=== PATIENT | female | born 1975 | race Two or more races ===

== ENCOUNTER 2017-06-06 20:23 | Emergency (ER) | payer SELFPAY ==
[~2017-06-06] VITALS: Ht 167.6 cm; Wt 72.6 kg
[2017-06-06] MEDS ORDERED: diphenhydrAMINE 50 MG/ML VIAL IVP ONE (22:00)
[2017-06-06] MEDS ORDERED: METOCLOPRAMIDE HCL 10 MG/2 ML VIAL. IV ONE (22:00)
[2017-06-06] MEDS ORDERED: KETOROLAC 15 MG/ML VIAL. IV ONE (22:00)
[2017-06-06] MEDS ORDERED: IV NORMAL SALINE 1000ML BAG 1,000 ML IV ONE (22:00)
--- NOTE | 2017-06-06 22:36 | RAD ---
Exam performed: CT scan of the head without contrast. Date of Service: 06/05/2017. Comparison: None available. Clinical History: Headache off and on for 6 months, worse today. Technique: Helical acquisitions are obtained from the foramen magnum to the vertex without intravenous administration of contrast. Findings: The ventricles are midline without evidence of dilatation. Normal forte-white differentiation is maintained. There is no extra axial fluid collection, intraparenchymal hemorrhage or mass lesion. The visualized portions of the orbits, paranasal sinuses and the mastoid air cells appear clear. The calvarium is intact. Impression: 1. No acute intracranial process detected. PQRS Compliance Statement: One or more of the following individualized dose reduction techniques were utilized for this examination: 1. Automated exposure control 2. Adjustment of the mA and/or kV according to patient size 3. Use of iterative reconstruction technique Electronically signed by: Elsa Hou MD (06/06/2017 10:32 PM) [id number]
[2017-06-06 23:30] VITALS: BP 92/50
--- NOTE | 2017-06-06 23:42 | PHYS DOC ---
Past Medical History Past Medical History: Anemia, Anxiety, Depression, Diabetes-Type II Past Surgical History: No Surgical History Alcohol Use: None Drug Use: None Adult General Chief Complaint Chief Complaint: HEADACHE HPI HPI Patient is a 42 year old female who presents here today complaining of a headache that started yesterday in her neck. Patient reports the pain is in the left side of her neck. Patient denies any blurred vision. Patient reports she's been having hot flashes. Patient reports she has a history of anxiety depression and anemia. Patient reports she's had a headache for approximately 6 months now with a headache almost every day for the last 6 months. Patient reports that she was started on prednisone for inflammation of a nerve. Patient has any fevers shakes chills nausea vomiting diarrhea chest pain or shortness of breath. Patient reports that whenever she stops prednisone the pain comes back in. Constitutional: Denies fever or chills [] Eyes: Denies change in visual acuity, redness, or eye pain [] HENT: Denies nasal congestion or sore throat [] All other review systems are negative except as documented in the history of present illness portion. Constitutional: Well developed, well nourished, no acute distress, non-toxic appearance. [] HENT: Normocephalic, atraumatic, bilateral external ears normal, oropharynx moist, no oral exudates, nose normal. [] No signs or symptoms of be consistent with meningitis. Eyes: no discharge. [] Neck: Normal range of motion, no tenderness, supple, no stridor. [] Cardiovascular:Heart rate regular rhythm, Lungs & Thorax: Bilateral breath sounds clear to auscultation [] Abdomen: Bowel sounds normal, soft, no tenderness, no masses, no pulsatile masses. [] Skin: Warm, dry, no erythema, no rash. [] Back: No tenderness, no CVA tenderness. [] Extremities: No tenderness, no cyanosis, no clubbing, ROM intact, no edema. [] Neurologic: Alert and oriented X 3, normal motor function, normal sensory function, no focal deficits noted. [] Psychologic: Affect normal, judgement normal, mood normal. [] This is a 42-year-old female who presents here today with a headache. Patient was given adequate analgesia in the ER was discharged home in stable condition. Current Medications Current Medications Current Medications Medications (Trade) Dose Ordered Sig/Laurel Start Time Stop Time Status Last Admin Dose Admin Diphenhydramine HCl (Benadryl) 50 mg 1X ONCE 06/06/17 22:00 06/06/17 22:01 DC 06/06/17 21:39 50 MG Ketorolac Tromethamine (Toradol) 30 mg 1X ONCE 06/06/17 22:00 06/06/17 22:01 DC 06/06/17 21:39 30 MG Metoclopramide HCl (Reglan) 10 mg 1X ONCE 06/06/17 22:00 06/06/17 22:01 DC 06/06/17 21:38 10 MG Sodium Chloride 1,000 ml @ 1,000 mls/hr 1X ONCE 06/06/17 22:00 06/06/17 22:59 DC 06/06/17 21:39 1,000 MLS/HR Allergies Allergies Allergies Coded Allergies Type Severity Reaction Last Updated Verified No Known Drug Allergies 06/06/17 No Current Patient Data Vital Signs Vital Signs Date Time Temp Pulse Resp B/P (MAP) Pulse Ox O2 Delivery O2 Flow Rate FiO2 06/06/17 23:30 54 18 92/50 (64) 97 Room Air 06/06/17 20:55 98.2 98.2 Lab Values Laboratory Tests Test 06/06/17 20:09 POC Urine HCG, Qualitative Hcg negative (Negative) EKG EKG [] Radiology/Procedures Radiology/Procedures [] Course & Med Decision Making Course & Med Decision Making Pertinent Labs and Imaging studies reviewed. (See chart for details) [] Dragon Disclaimer Dragon Disclaimer This electronic medical record was generated, in whole or in part, using a voice recognition dictation system. Departure Departure Impression: Primary Impression: Headache Disposition: 01 HOME, SELF-CARE Condition: IMPROVED Referrals: LLYA HUBBARD [facility] (PCP) Patient Instructions: General Headache Without Cause CHARLES SPEAR MD Jun 06, 2017 23:41
== END 2017-06-07 00:01 | disposition home or self-care (01) ==
LOC: ER 20:23
DX: R51 Headache (principal); F41.9 Anxiety disorder, unspecified; F32.9 Major depressive disorder, single episode, unspecified; E11.9 Type 2 diabetes mellitus without complications
CPT/HCPCS: 70450; 81025; 96361; 96374; 96375; 99285; J1200; J1885; J2765; J7030

== ENCOUNTER 2017-06-09 13:32 | Emergency (ER) | payer SELFPAY ==
[~2017-06-09] VITALS: Ht 152.4 cm; Wt 75.7 kg
[2017-06-09 14:04] LABS: BASO # 0.1 x10^3/uL (0.0-0.2); BASO % 1 % (0-3); EOS % 2 % (0-3); HEMATOCRIT 37.8 % (36.0-47.0); HEMOGLOBIN 12.3 g/dL (12.0-15.5); LYMPH # 3.5 x10^3/uL (1.0-4.8); LYMPH % 37 % (24-48); MEAN CORPUSCULAR HEMOGLOBIN 25 pg (25-35); MEAN CORPUSCULAR HGB CONC 33 g/dL (31-37); MEAN CORPUSCULAR VOLUME 77 fL (79-100); MONO % 6 % (0-9); NEUT % 54 % (31-73); PLATELET COUNT 360 x10^3/uL (140-400); RED BLOOD COUNT 4.92 x10^6/uL (3.50-5.40); RED CELL DISTRIBUTION WIDTH 22.3 % (11.5-14.5); WHITE BLOOD COUNT 9.5 x10^3/uL (4.0-11.0)
[2017-06-09 14:18] LABS: CREATININE 0.8 mg/dL (0.6-1.0); GFR 78.3; POTASSIUM 3.6 mmol/L (3.5-5.1)
--- NOTE | 2017-06-09 14:24 | PHYS DOC ---
Past Medical History Past Medical History: Anemia, Anxiety, Depression, Diabetes-Type II Past Surgical History: No Surgical History Alcohol Use: None Drug Use: None Adult General Chief Complaint Chief Complaint: CHEST PAIN HPI HPI Patient is a 42 year old female who presents with left-sided chest pain that started this morning and is nonradiating. Patient states that nothing increases or decreases the pain. Patient complains of some seasonal allergies with postnasal drip and a sore throat. Patient has no cardiac history. Patient denies any shortness of breath. Patient denies any fevers or chills. Patient denies any nausea/vomiting/diarrhea. Patient has no other complaints. Review of Systems Review of Systems GEN: Denies fevers, chills, sweats HEENT: Denies blurred vision, sore throat CV: chest pain RESP: Denies shortness of air, cough GI: Denies n/v/d NEURO: Denies confusion, dizziness MSK: Denies weakness, joint pain/swelling Allergies Allergies Allergies Coded Allergies Type Severity Reaction Last Updated Verified No Known Drug Allergies 06/06/17 No Physical Exam Physical Exam GEN.: No apparent distress. Alert and oriented. HEENT: Head is normocephalic, atraumatic NECK: Supple. LUNGS: CTAB. HEART: RRR, S1, S2 present. Peripheral pulses intact ABDOMEN: Soft, nontender. Positive bowel sounds. EXTREMITIES: Without any cyanosis. NEUROLOGIC: Normal speech, normal tone PSYCHIATRIC: Normal affect, normal mood. SKIN: No ulcerations Current Patient Data Vital Signs Vital Signs Date Time Temp Pulse Resp B/P (MAP) Pulse Ox O2 Delivery O2 Flow Rate FiO2 06/09/17 13:39 98.1 60 18 112/56 (74) 100 Room Air 98.1 Lab Values Laboratory Tests Test 06/09/17 13:02 06/09/17 13:50 POC Urine HCG, Qualitative Hcg negative (Negative) White Blood Count 9.5 x10^3/uL (4.0-11.0) Red Blood Count 4.92 x10^6/uL (3.50-5.40) Hemoglobin 12.3 g/dL (12.0-15.5) Hematocrit 37.8 % (36.0-47.0) Mean Corpuscular Volume 77 fL (79-100) L Mean Corpuscular Hemoglobin 25 pg (25-35) Mean Corpuscular Hemoglobin Concent 33 g/dL (31-37) Red Cell Distribution Width 22.3 % (11.5-14.5) H Platelet Count 360 x10^3/uL (140-400) Neutrophils (%) (Auto) 54 % (31-73) Lymphocytes (%) (Auto) 37 % (24-48) Monocytes (%) (Auto) 6 % (0-9) Eosinophils (%) (Auto) 2 % (0-3) Basophils (%) (Auto) 1 % (0-3) Neutrophils # (Auto) 5.1 x10^3uL (1.8-7.7) Lymphocytes # (Auto) 3.5 x10^3/uL (1.0-4.8) Monocytes # (Auto) 0.6 x10^3/uL (0.0-1.1) Eosinophils # (Auto) 0.2 x10^3/uL (0.0-0.7) Basophils # (Auto) 0.1 x10^3/uL (0.0-0.2) Platelet Estimate Adequate (ADEQUATE) Anisocytosis Mod Sodium Level 138 mmol/L (136-145) Potassium Level 3.6 mmol/L (3.5-5.1) Chloride Level 104 mmol/L (98-107) Carbon Dioxide Level 25 mmol/L (21-32) Anion Gap 9 (6-14) Blood Urea Nitrogen 7 mg/dL (7-20) Creatinine 0.8 mg/dL (0.6-1.0) Estimated GFR (Cockcroft-Gault) 78.3 BUN/Creatinine Ratio 9 (6-20) Glucose Level 113 mg/dL (70-99) H Calcium Level 9.0 mg/dL (8.5-10.1) Total Bilirubin 0.3 mg/dL (0.2-1.0) Aspartate Amino Transferase (AST) 29 U/L (15-37) Alanine Aminotransferase (ALT) 24 U/L (14-59) Alkaline Phosphatase 79 U/L (46-116) Troponin I Quantitative < 0.017 ng/mL (0.000-0.055) Total Protein 7.8 g/dL (6.4-8.2) Albumin 3.6 g/dL (3.4-5.0) Albumin/Globulin Ratio 0.9 (1.0-1.7) L Laboratory Tests 06/09/17 13:50 Laboratory Tests 06/09/17 13:50 EKG EKG 1348: EKG is normal sinus rhythm rate of 63 no STEMI [] Radiology/Procedures Radiology/Procedures Chest x-ray NAD [] Course & Med Decision Making Course & Med Decision Making Pertinent Labs and Imaging studies reviewed. (See chart for details) 1506: Updated patient on results and chest x-ray, on reexamination patient was feeling better and was ready go home. Recommended patient follow PCP in one to 2 days. MDM: After reviewing the chart, CC/HPI/PMH, physical exam, [lab results], [ radiological results], I do not believe the patient having acute GA (HEART score =1), PE (PERC neg), and is low suspicion and risk for thoracic aortic dissection. Due the patient's heart score of 1 I believe the patient can follow up as an outpatient for outpatient cardiac workup. Recommended patient follow PCP in one to 2 days. Patient is stable for discharge. Additional verbal discharge instructions were provided to the patient and that if symptoms get worse or any new symptoms arise that are worrisome to the patient she is to return to the emergency room immediately [] Dragon Disclaimer Dragon Disclaimer This electronic medical record was generated, in whole or in part, using a voice recognition dictation system. Departure Departure Impression: Primary Impression: Chest pain Disposition: 01 HOME, SELF-CARE Condition: IMPROVED Referrals: UNKNOWN PCP NAME (PCP) Patient Instructions: Chest Pain (Nonspecific) Additional Instructions: Please follow up with her family doctor next one to 2 days WILTON YIN DO Jun 09, 2017 14:24
[2017-06-09 14:25] LABS: ALBUMIN 3.6 g/dL (3.4-5.0); ALBUMIN/GLOBULIN RATIO 0.9 (1.0-1.7); TOTAL BILIRUBIN 0.3 mg/dL (0.2-1.0); TOTAL PROTEIN 7.8 g/dL (6.4-8.2)
--- NOTE | 2017-06-09 14:54 | RAD ---
CHEST PA LATERAL Clinical Indication: chest pain, LEFT SIDE MID TO LOWER CHEST PAIN, NKI, X 6 MONTHS Comparison: Chest radiograph dated 08/30/2012 Findings: Low lung volumes. No focal consolidations. Normal pulmonary vasculature. No pleural effusion or pneumothorax. The cardiomediastinal silhouette is normal. The great vessels of the thorax are normal. No acute osseous abnormality. IMPRESSION: No acute cardiopulmonary process.
[2017-06-09 15:02] VITALS: BP 100/58
[2017-06-09 15:03] LABS: ANISOCYTOSIS MOD; PLT ESTIMATE ADEQUATE (ADEQUATE)
--- NOTE | 2017-06-09 16:21 | EKG ---
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
== END 2017-06-09 15:25 | disposition home or self-care (01) ==
LOC: ER 13:32
DX: R07.9 Chest pain, unspecified (principal); E11.9 Type 2 diabetes mellitus without complications
CPT/HCPCS: 36415; 71020; 80053; 81025; 84484; 85007; 85027; 93005; 99285-25

== ENCOUNTER 2018-02-04 19:07 | Emergency (ER) | payer SELFPAY | END 2018-02-04 20:20 | disposition left against medical advice (07) | LOC: ER 19:07 | DX: M54.89 Other dorsalgia (principal); F41.9 Anxiety disorder, unspecified; F32.9 Major depressive disorder, single episode, unspecified; E11.9 Type 2 diabetes mellitus without complications | CPT/HCPCS: 99281 ==

== ENCOUNTER 2018-07-03 20:47 | Inpatient (IN) | payer SELFPAY ==
[~2018-07-03] VITALS: Ht 149.9 cm; Wt 72.8 kg
[2018-07-03 21:36] LABS: BILIRUBIN,URINE NEGATIVE (NEG); CLARITY,URINE CLEAR; COLOR,URINE YELLOW; NITRITE,URINE NEGATIVE (NEG); PROTEIN,URINE NEGATIVE (NEG-TRACE); UROBILINOGEN,URINE 0.2 mg/dL (0.2 mg/dL)
--- NOTE | 2018-07-03 21:37 | PHYS DOC ---
Past Medical History Past Medical History: Anemia, Anxiety, Depression, Diabetes-Type II Past Surgical History: No Surgical History Alcohol Use: None Drug Use: None Adult General Chief Complaint Chief Complaint: DIZZY/LIGHT HEADED HPI HPI Patient is a 43 year old [place]-speaking female that presents to the emergency department complaining of dizziness. She states that her symptoms began 1 week ago. She describes intermittent chest palpitations that then travel up to her head. She complains of left sided head pain that is 9/10 in severity. She states that watching TV or getting up and walking make the symptoms worse and that laying down helps improve her symptoms. Reports some "itchiness" to stomach as well. Reports is taking Carafate and prilosec with some improvement. Denies trauma. Denies fever/chills. Review of Systems Review of Systems Constitutional: Denies fever or chills [] Eyes: Denies change in visual acuity, redness, or eye pain [] HENT: Denies nasal congestion or sore throat [] Respiratory: Denies cough or shortness of breath [] Cardiovascular: Reports palpitations, denies chest pain GI: Denies abdominal pain, nausea, vomiting, or diarrhea [] : Denies hematuria, reports some increased urination. Musculoskeletal: Denies back pain or joint pain [] Integument: Denies rash or skin lesions [] Neurologic: Reports headache; Denies focal weakness or sensory changes [] Complete systems were reviewed and found to be within normal limits, except as documented in this note. Current Medications Current Medications Current Medications Medications (Trade) Dose Ordered Sig/Laurel Start Time Stop Time Status Last Admin Dose Admin Aspirin (Children'S Aspirin) 324 mg 1X ONCE 07/03/18 22:00 07/03/18 22:01 DC 07/03/18 23:28 324 MG Ceftriaxone Sodium 50 ml @ 100 mls/hr 1X ONCE 07/03/18 23:00 07/03/18 23:29 DC 07/03/18 23:28 100 MLS/HR Dexamethasone Sodium Phosphate (Decadron) 10 mg 1X ONCE 07/03/18 23:45 07/03/18 23:46 UNV Diphenhydramine HCl (Benadryl) 50 mg 1X ONCE 07/03/18 23:45 07/03/18 23:46 UNV Ketorolac Tromethamine (Toradol 30mg Vial) 30 mg 1X ONCE 07/03/18 23:45 07/03/18 23:46 UNV Metoclopramide HCl (Reglan Vial) 10 mg 1X ONCE 07/03/18 23:45 07/03/18 23:46 UNV Sodium Chloride 1,000 ml @ 1,000 mls/hr 1X ONCE 07/03/18 22:00 07/03/18 22:59 DC 07/03/18 23:28 1,000 MLS/HR Allergies Allergies Allergies Coded Allergies Type Severity Reaction Last Updated Verified No Known Drug Allergies 06/06/17 No Physical Exam Physical Exam Constitutional: Well developed, well nourished, no acute distress, non-toxic appearance. [] HENT: Normocephalic, atraumatic, oropharynx moist, nose normal. [] Eyes: PERRL, EOMI, conjunctiva normal, no nystagmus. [] Neck: Normal range of motion, no tenderness, supple, no meningeal signs Cardiovascular: Heart rate regular rhythm, no murmur [] Lungs & Thorax: Bilateral breath sounds clear to auscultation, no wheezes, rhonchi, rales Abdomen: Soft, suprapubic tenderness on palpation Skin: Warm, dry, no erythema, no rash. [] Back: No tenderness, no CVA tenderness. [] Extremities: No tenderness, no cyanosis, no clubbing, ROM intact, no edema. [] Neurologic: Alert and oriented X 3, normal motor function, normal sensory function, no focal deficits noted. Cerebellar function intact Psychologic: Affect normal, judgement normal, mood normal. [] Current Patient Data Vital Signs Vital Signs Date Time Temp Pulse Resp B/P (MAP) Pulse Ox O2 Delivery O2 Flow Rate FiO2 07/03/18 21:00 98.3 62 16 122/65 (84) 100 Room Air 98.3 Lab Values Laboratory Tests Test 07/03/18 21:10 07/03/18 21:20 07/03/18 22:40 Urine Collection Type Void Urine Color Yellow Urine Clarity Clear Urine pH 6.0 Urine Specific [place] 1.015 Urine Protein Negative mg/dL (NEG-TRACE) Urine Glucose (UA) Negative mg/dL (NEG) Urine Ketones (Stick) Negative mg/dL (NEG) Urine Blood Trace (NEG) Urine Nitrite Negative (NEG) Urine Bilirubin Negative (NEG) Urine Urobilinogen Dipstick 0.2 mg/dL (0.2 mg/dL) Urine Leukocyte Esterase Small (NEG) Urine RBC 0 /HPF (0-2) Urine WBC >40 /HPF (0-4) Urine Squamous Epithelial Cells Mod /LPF Urine Bacteria Moderate /HPF (0-FEW) Urine Mucus Marked /LPF POC Urine HCG, Qualitative Hcg negative (Negative) White Blood Count 11.6 x10^3/uL (4.0-11.0) H Red Blood Count 4.65 x10^6/uL (3.50-5.40) Hemoglobin 13.0 g/dL (12.0-15.5) Hematocrit 37.8 % (36.0-47.0) Mean Corpuscular Volume 81 fL (79-100) Mean Corpuscular Hemoglobin 28 pg (25-35) Mean Corpuscular Hemoglobin Concent 34 g/dL (31-37) Red Cell Distribution Width 15.3 % (11.5-14.5) H Platelet Count 403 x10^3/uL (140-400) H Neutrophils (%) (Auto) 50 % (31-73) Lymphocytes (%) (Auto) 41 % (24-48) Monocytes (%) (Auto) 8 % (0-9) Eosinophils (%) (Auto) 1 % (0-3) Basophils (%) (Auto) 1 % (0-3) Neutrophils # (Auto) 5.7 x10^3uL (1.8-7.7) Lymphocytes # (Auto) 4.7 x10^3/uL (1.0-4.8) Monocytes # (Auto) 0.9 x10^3/uL (0.0-1.1) Eosinophils # (Auto) 0.2 x10^3/uL (0.0-0.7) Basophils # (Auto) 0.1 x10^3/uL (0.0-0.2) Prothrombin Time 13.1 SEC (11.7-14.0) Prothrombin Time INR 1.0 (0.8-1.1) Sodium Level 141 mmol/L (136-145) Potassium Level 3.2 mmol/L (3.5-5.1) L Chloride Level 105 mmol/L (98-107) Carbon Dioxide Level 27 mmol/L (21-32) Anion Gap 9 (6-14) Blood Urea Nitrogen 12 mg/dL (7-20) Creatinine 0.7 mg/dL (0.6-1.0) Estimated GFR (Cockcroft-Gault) 90.9 BUN/Creatinine Ratio 17 (6-20) Glucose Level 126 mg/dL (70-99) H Calcium Level 9.3 mg/dL (8.5-10.1) Magnesium Level 2.1 mg/dL (1.8-2.4) Total Bilirubin 0.2 mg/dL (0.2-1.0) Aspartate Amino Transferase (AST) 19 U/L (15-37) Alanine Aminotransferase (ALT) 23 U/L (14-59) Alkaline Phosphatase 75 U/L (46-116) Creatine Kinase 74 U/L (26-192) Creatine Kinase MB (Mass) 0.7 ng/mL (0.0-3.6) Creatine Kinase MB Relative Index % (0-4) Troponin I Quantitative < 0.017 ng/mL (0.000-0.055) BS-Jbj-G-Type Natriuretic Peptide 125 pg/mL (0-124) H Total Protein 7.3 g/dL (6.4-8.2) Albumin 3.5 g/dL (3.4-5.0) Albumin/Globulin Ratio 0.9 (1.0-1.7) L Lipase 171 U/L (73-393) Laboratory Tests 07/03/18 22:40 Laboratory Tests 07/03/18 22:40 EKG EKG NSR at 54bpm. Nonspecific T wave inversion. NO ST elevation. 07/03/2018. 2123 Radiology/Procedures Radiology/Procedures PROCEDURE: CT HEAD WO CONTRAST CT Head W/O Contrast: History: L SIDED FABIAN AND NAUSEA PREV SENT Comparison: May 07, 2017 Axial images were obtained without contrast. The forte and white matter appears normal and symmetrical for the patients age. There is no mass effect, extraaxial fluid collections or hydrocephalus. There is no gross bleed. There is no focal loss of forte-white matter distinction to suggest acute ischemia, i.e. stroke. Impression: No acute findings. PQRS Compliance Statement: One or more of the following individualized dose reduction techniques were utilized for this examination: 1. Automated exposure control 2. Adjustment of the mA and/or kV according to patient size 3. Use of iterative reconstruction technique Electronically signed by: Reyes Dugan III, MD (07/03/2018 9:51 PM) [facility]\\ CXR: 2 view (preliminary interpretation by ED physician) No acute process Course & Med Decision Making Course & Med Decision Making Pertinent Labs and Imaging studies reviewed. (See chart for details) Patient is a 43-year-old [place]-speaking female presents emergency department complaining of dizziness, palpitations, and headache. Supportive measures provided. Labs obtained and posted to chart. Initial troponin within normal limits. UA with signs of infection. Empiric antibiotics initiated. IV fluid hydration provided. CT head without acute process. Patient reports minimal improvement of symptoms. Patient requiring admission for further evaluation and treatment. Discussed with Dr. Gaffney (hospitalist) who is in agreement with admission. Discussed findings and plan with patient and family, who acknowledge understanding and agreement. Dragon Disclaimer Dragon Disclaimer This electronic medical record was generated, in whole or in part, using a voice recognition dictation system. Departure Departure Impression: Primary Impression: Dizziness Additional Impressions: Palpitations Headache UTI (urinary tract infection) Disposition: ADMITTED INPATIENT Admitting Physician: Laureen Gaffney Condition: STABLE Referrals: UNKNOWN PCP NAME (PCP) Problem Qualifiers Additional Impressions: Headache Headache type: unspecified Headache chronicity pattern: acute headache Intractability: intractable Qualified Codes: R51 - Headache UTI (urinary tract infection) Urinary tract infection type: acute cystitis Hematuria presence: without hematuria Qualified Codes: N30.00 - Acute cystitis without hematuria ESVIN DE PAZ DO Jul 03, 2018 21:37
[2018-07-03 21:46] LABS: BACTERIA,URINE MODERATE /HPF (0-FEW); RBC,URINE 0 /HPF (0-2); SQUAMOUS EPITHELIAL CELL,UR MOD /LPF; WBC,URINE >40 /HPF (0-4)
--- NOTE | 2018-07-03 21:55 | RAD ---
CT Head W/O Contrast: History: L SIDED FABIAN AND NAUSEA PREV SENT Comparison: May 07, 2017 Axial images were obtained without contrast. The forte and white matter appears normal and symmetrical for the patients age. There is no mass effect, extraaxial fluid collections or hydrocephalus. There is no gross bleed. There is no focal loss of forte-white matter distinction to suggest acute ischemia, i.e. stroke. Impression: No acute findings. PQRS Compliance Statement: One or more of the following individualized dose reduction techniques were utilized for this examination: 1. Automated exposure control 2. Adjustment of the mA and/or kV according to patient size 3. Use of iterative reconstruction technique Electronically signed by: Reyes Dugan III, MD (07/03/2018 9:51 PM) [facility]
[2018-07-03] MEDS ORDERED: IV NORMAL SALINE 1000ML BAG 1,000 ML IV ONE (22:00)
[2018-07-03] MEDS ORDERED: ASPIRIN CHEWABLE 81 MG TABLET. PO ONE (22:00)
[2018-07-03 22:55] LABS: BASO # 0.1 x10^3/uL (0.0-0.2); BASO % 1 % (0-3); EOS # 0.2 x10^3/uL (0.0-0.7); EOS % 1 % (0-3); HEMATOCRIT 37.8 % (36.0-47.0); LYMPH # 4.7 x10^3/uL (1.0-4.8); LYMPH % 41 % (24-48); MEAN CORPUSCULAR HEMOGLOBIN 28 pg (25-35); MEAN CORPUSCULAR HGB CONC 34 g/dL (31-37); MEAN CORPUSCULAR VOLUME 81 fL (79-100); MONO # 0.9 x10^3/uL (0.0-1.1); MONO % 8 % (0-9); NEUT # 5.7 x10^3uL (1.8-7.7); NEUT % 50 % (31-73); PLATELET COUNT 403 x10^3/uL (140-400); RED BLOOD COUNT 4.65 x10^6/uL (3.50-5.40); RED CELL DISTRIBUTION WIDTH 15.3 % (11.5-14.5); WHITE BLOOD COUNT 11.6 x10^3/uL (4.0-11.0)
[2018-07-03 23:06] LABS: CALCIUM 9.3 mg/dL (8.5-10.1); CREATININE 0.7 mg/dL (0.6-1.0); GFR 90.9; POTASSIUM 3.2 mmol/L (3.5-5.1); PROTHROMBIN TIME PATIENT 13.1 SEC (11.7-14.0)
[2018-07-03 23:13] LABS: ALBUMIN 3.5 g/dL (3.4-5.0); ALBUMIN/GLOBULIN RATIO 0.9 (1.0-1.7); MAGNESIUM 2.1 mg/dL (1.8-2.4); TOTAL BILIRUBIN 0.2 mg/dL (0.2-1.0); TOTAL PROTEIN 7.3 g/dL (6.4-8.2)
[2018-07-03 23:20] LABS: CREATINE KINASE 74 U/L (26-192)
[2018-07-04] VITALS (9 sets, daily range): BP systolic 88–130; BP diastolic 46–65
[2018-07-04] MEDS ORDERED: ONDANSETRON PF 4 MG/2 ML VIAL. IV PRN
[2018-07-04] MEDS ORDERED: ACETAMINOPHEN 325 MG TABLET. PO PRN
[2018-07-04] MEDS ORDERED: DEXAMETHASONE SOD PHOS 20 MG/5 ML VIAL. IV ONE
[2018-07-04] MEDS ORDERED: diphenhydrAMINE 50 MG/ML VIAL IVP ONE
[2018-07-04] MEDS ORDERED: KETOROLAC 30 MG/ML VIAL. IV ONE
[2018-07-04] MEDS ORDERED: METOCLOPRAMIDE HCL 10 MG/2 ML VIAL. IV ONE
[2018-07-04] MEDS ORDERED: CHOL10003 PO (01:27)
[2018-07-04] MEDS ORDERED: OMEP20TA8 PO (01:27)
[2018-07-04] MEDS ORDERED: MULT1TAB52 PO (01:27)
--- NOTE | 2018-07-04 07:07 | EKG ---
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
--- NOTE | 2018-07-04 07:43 | RAD ---
PROCEDURE: CHEST PA LATERAL CLINICAL INDICATION: DIZZINESS, CHEST PAIN COMPARISON: None FINDINGS: No pneumothorax identified. Cardiac and mediastinal contours unremarkable. No pulmonary consolidation or acute airspace disease. No acute osseous abnormalities identified. IMPRESSION: No pulmonary consolidation or acute airspace disease. Electronically signed by: Todd King DO (07/04/2018 7:39 AM) [facility]
--- NOTE | 2018-07-04 09:11 | PDOC1 ---
History and Physical Date of Admission Date of Admission 07/03/18 Identification/Chief Complaint Chief Complaint dizziness, SOB Source Source: Chart review, Patient History of Present Illness History of Present Illness 43 y/o pleasnt uzbek speaking with multiple complaints including pain in upper left abd and chest especially after spicy food or cooked tomato, she also has FABIAN and dizziness almost every day mostly left side of face and chest radiate to her private area, sometimes flushed and sweaty, Past Medical History Cardiovascular: HTN Pulmonary: Asthma CENTRAL NERVOUS SYSTEM: Carpal Tunnel Syndrome GI: Constipation Heme/Onc: No pertinent hx Hepatobiliary: No pertinent hx Psych: Anxiety, Depression ENT: Allergic Rhinitis Renal/: UTI Endocrine: Hypothyroidism Past Surgical History Past Surgical History: No pertinent history Family History Family History: Family History Unknown Social History Smoke: No ALCOHOL: rare Drugs: None Current Problem List Problem List Problems Medical Problems: (1) Dizziness Status: Acute (2) Headache Status: Acute (3) Palpitations Status: Acute (4) UTI (urinary tract infection) Status: Acute Current Medications Current Medications Current Medications Medications (Trade) Dose Ordered Sig/[place] Start Time Stop Time Status Last Admin Dose Admin Acetaminophen (Tylenol) 650 mg PRN Q4HRS PRN 07/04/18 00:00 07/04/18 23:59 Aspirin (Children'S Aspirin) 324 mg 1X ONCE 07/03/18 22:00 07/03/18 22:01 DC 07/03/18 23:28 324 MG Ceftriaxone Sodium 50 ml @ 100 mls/hr 1X ONCE 07/03/18 23:00 07/03/18 23:29 DC 07/03/18 23:28 100 MLS/HR Dexamethasone Sodium Phosphate (Decadron) 10 mg 1X ONCE 07/04/18 00:00 07/04/18 00:01 DC 07/04/18 00:22 10 MG Diphenhydramine HCl (Benadryl) 50 mg 1X ONCE 07/04/18 00:00 07/04/18 00:01 DC 07/04/18 00:24 50 MG Ketorolac Tromethamine (Toradol 30mg Vial) 30 mg 1X ONCE 07/04/18 00:00 07/04/18 00:01 DC 07/04/18 00:23 30 MG Metoclopramide HCl (Reglan Vial) 10 mg 1X ONCE 07/04/18 00:00 07/04/18 00:01 DC 07/04/18 00:22 10 MG Ondansetron HCl (Zofran) 4 mg PRN Q8HRS PRN 07/04/18 00:00 07/04/18 23:59 Sodium Chloride 1,000 ml @ 1,000 mls/hr 1X ONCE 07/03/18 22:00 07/03/18 22:59 DC 07/03/18 23:28 1,000 MLS/HR Allergies Allergies Allergies Coded Allergies Type Severity Reaction Last Updated Verified No Known Drug Allergies 06/06/17 No ROS Review of System CONSTITUTIONAL: No fever or chills EYES: No recent changes SKIN: No rash or itching CARDIOVASCULAR: + chest pain, No syncope, +palpitations, No edema RESPIRATORY: + SOB with exertion no cough GASTROINTESTINAL: No nausea, vomiting +abdominal pain NEUROLOGICAL: + headaches + weakness ENDOCRINE: No cold or heat intolerance GENITOURINARY: No urgency or frequency of urination MUSCULOSKELETAL: + back pain no joint pain LYMPHATICS: No enlarged lymph nodes PSYCHIATRIC: + anxiety and depression Physical Exam Physical Exam GEN.: No apparent distress. Alert and oriented. HEENT: Head is normocephalic, atraumatic NECK: Supple. LUNGS: Clear to auscultation. HEART: RRR, S1, S2 present. Peripheral pulses intact ABDOMEN: Soft, nontender. Positive bowel sounds. EXTREMITIES: Without any cyanosis. NEUROLOGIC: Normal speech, normal tone PSYCHIATRIC: Normal affect, normal mood. SKIN: No ulcerations Vitals Vitals Vital Signs Date Time Temp Pulse Resp B/P (MAP) Pulse Ox O2 Delivery O2 Flow Rate FiO2 07/04/18 07:35 97.7 55 17 95/46 (62) 98 Room Air 97.7 Labs Labs Laboratory Tests Test 07/03/18 21:10 07/03/18 21:20 07/03/18 22:40 Urine Collection Type Void Urine Color Yellow Urine Clarity Clear Urine pH 6.0 Urine Specific [place] 1.015 Urine Protein Negative mg/dL (NEG-TRACE) Urine Glucose (UA) Negative mg/dL (NEG) Urine Ketones (Stick) Negative mg/dL (NEG) Urine Blood Trace (NEG) Urine Nitrite Negative (NEG) Urine Bilirubin Negative (NEG) Urine Urobilinogen Dipstick 0.2 mg/dL (0.2 mg/dL) Urine Leukocyte Esterase Small (NEG) Urine RBC 0 /HPF (0-2) Urine WBC >40 /HPF (0-4) Urine Squamous Epithelial Cells Mod /LPF Urine Bacteria Moderate /HPF (0-FEW) Urine Mucus Marked /LPF Bedside Urine HCG, Qualitative Hcg negative (Negative) White Blood Count 11.6 x10^3/uL (4.0-11.0) Red Blood Count 4.65 x10^6/uL (3.50-5.40) Hemoglobin 13.0 g/dL (12.0-15.5) Hematocrit 37.8 % (36.0-47.0) Mean Corpuscular Volume 81 fL (79-100) Mean Corpuscular Hemoglobin 28 pg (25-35) Mean Corpuscular Hemoglobin Concent 34 g/dL (31-37) Red Cell Distribution Width 15.3 % (11.5-14.5) Platelet Count 403 x10^3/uL (140-400) Neutrophils (%) (Auto) 50 % (31-73) Lymphocytes (%) (Auto) 41 % (24-48) Monocytes (%) (Auto) 8 % (0-9) Eosinophils (%) (Auto) 1 % (0-3) Basophils (%) (Auto) 1 % (0-3) Neutrophils # (Auto) 5.7 x10^3uL (1.8-7.7) Lymphocytes # (Auto) 4.7 x10^3/uL (1.0-4.8) Monocytes # (Auto) 0.9 x10^3/uL (0.0-1.1) Eosinophils # (Auto) 0.2 x10^3/uL (0.0-0.7) Basophils # (Auto) 0.1 x10^3/uL (0.0-0.2) Prothrombin Time 13.1 SEC (11.7-14.0) Prothromb Time International Ratio 1.0 (0.8-1.1) Sodium Level 141 mmol/L (136-145) Potassium Level 3.2 mmol/L (3.5-5.1) Chloride Level 105 mmol/L (98-107) Carbon Dioxide Level 27 mmol/L (21-32) Anion Gap 9 (6-14) Blood Urea Nitrogen 12 mg/dL (7-20) Creatinine 0.7 mg/dL (0.6-1.0) Estimated GFR (Cockcroft-Gault) 90.9 BUN/Creatinine Ratio 17 (6-20) Glucose Level 126 mg/dL (70-99) Calcium Level 9.3 mg/dL (8.5-10.1) Magnesium Level 2.1 mg/dL (1.8-2.4) Total Bilirubin 0.2 mg/dL (0.2-1.0) Aspartate Amino Transf (AST/SGOT) 19 U/L (15-37) Alanine Aminotransferase (ALT/SGPT) 23 U/L (14-59) Alkaline Phosphatase 75 U/L (46-116) Creatine Kinase 74 U/L (26-192) Creatine Kinase MB (Mass) 0.7 ng/mL (0.0-3.6) Creatine Kinase MB Relative Index % (0-4) Troponin I Quantitative < 0.017 ng/mL (0.000-0.055) GI-Fvp-I-Type Natriuretic Peptide 125 pg/mL (0-124) Total Protein 7.3 g/dL (6.4-8.2) Albumin 3.5 g/dL (3.4-5.0) Albumin/Globulin Ratio 0.9 (1.0-1.7) Lipase 171 U/L (73-393) Laboratory Tests Test 07/03/18 21:10 07/03/18 21:20 07/03/18 22:40 Urine Collection Type Void Urine Color Yellow Urine Clarity Clear Urine pH 6.0 Urine Specific [place] 1.015 Urine Protein Negative mg/dL (NEG-TRACE) Urine Glucose (UA) Negative mg/dL (NEG) Urine Ketones (Stick) Negative mg/dL (NEG) Urine Blood Trace (NEG) Urine Nitrite Negative (NEG) Urine Bilirubin Negative (NEG) Urine Urobilinogen Dipstick 0.2 mg/dL (0.2 mg/dL) Urine Leukocyte Esterase Small (NEG) Urine RBC 0 /HPF (0-2) Urine WBC >40 /HPF (0-4) Urine Squamous Epithelial Cells Mod /LPF Urine Bacteria Moderate /HPF (0-FEW) Urine Mucus Marked /LPF Bedside Urine HCG, Qualitative Hcg negative (Negative) White Blood Count 11.6 x10^3/uL (4.0-11.0) Red Blood Count 4.65 x10^6/uL (3.50-5.40) Hemoglobin 13.0 g/dL (12.0-15.5) Hematocrit 37.8 % (36.0-47.0) Mean Corpuscular Volume 81 fL (79-100) Mean Corpuscular Hemoglobin 28 pg (25-35) Mean Corpuscular Hemoglobin Concent 34 g/dL (31-37) Red Cell Distribution Width 15.3 % (11.5-14.5) Platelet Count 403 x10^3/uL (140-400) Neutrophils (%) (Auto) 50 % (31-73) Lymphocytes (%) (Auto) 41 % (24-48) Monocytes (%) (Auto) 8 % (0-9) Eosinophils (%) (Auto) 1 % (0-3) Basophils (%) (Auto) 1 % (0-3) Neutrophils # (Auto) 5.7 x10^3uL (1.8-7.7) Lymphocytes # (Auto) 4.7 x10^3/uL (1.0-4.8) Monocytes # (Auto) 0.9 x10^3/uL (0.0-1.1) Eosinophils # (Auto) 0.2 x10^3/uL (0.0-0.7) Basophils # (Auto) 0.1 x10^3/uL (0.0-0.2) Prothrombin Time 13.1 SEC (11.7-14.0) Prothromb Time International Ratio 1.0 (0.8-1.1) Sodium Level 141 mmol/L (136-145) Potassium Level 3.2 mmol/L (3.5-5.1) Chloride Level 105 mmol/L (98-107) Carbon Dioxide Level 27 mmol/L (21-32) Anion Gap 9 (6-14) Blood Urea Nitrogen 12 mg/dL (7-20) Creatinine 0.7 mg/dL (0.6-1.0) Estimated GFR (Cockcroft-Gault) 90.9 BUN/Creatinine Ratio 17 (6-20) Glucose Level 126 mg/dL (70-99) Calcium Level 9.3 mg/dL (8.5-10.1) Magnesium Level 2.1 mg/dL (1.8-2.4) Total Bilirubin 0.2 mg/dL (0.2-1.0) Aspartate Amino Transf (AST/SGOT) 19 U/L (15-37) Alanine Aminotransferase (ALT/SGPT) 23 U/L (14-59) Alkaline Phosphatase 75 U/L (46-116) Creatine Kinase 74 U/L (26-192) Creatine Kinase MB (Mass) 0.7 ng/mL (0.0-3.6) Creatine Kinase MB Relative Index % (0-4) Troponin I Quantitative < 0.017 ng/mL (0.000-0.055) ZU-Cxm-S-Type Natriuretic Peptide 125 pg/mL (0-124) Total Protein 7.3 g/dL (6.4-8.2) Albumin 3.5 g/dL (3.4-5.0) Albumin/Globulin Ratio 0.9 (1.0-1.7) Lipase 171 U/L (73-393) VTE Prophylaxis Ordered VTE Prophylaxis Devices: Yes VTE Pharmacological Prophylaxi: No Assessment/Plan Assessment/Plan 1-chest pain , cardiology consult 2-headache and dizziness, neurology consult 3-epigastric pain and GERD start PPI 4-obesity 5- hypotension assured 7-bradycardia check TSH 8- anxiety and depression start Cymbalta and clonazepam HIRO APODACA MD Jul 04, 2018 09:11
[2018-07-04] MEDS ORDERED: POTASSIUM CHLORIDE 20 MEQ TABLET.ER. PO ONE (10:30)
[2018-07-04] MEDS: KETOROLAC 30 MG/ML VIAL. IV PRN (10:44)
--- NOTE | 2018-07-04 14:15 | RAD ---
DOPPLER CAROTID BILAT Clinical Indication: CVA. Procedure: Pulsed wave and color-flow duplex imaging was utilized to evaluate the extracranial carotid arteries. Comparison: None. Findings: RIGHT SIDE: No significant atherosclerotic plaque on forte-scale images. Mid CCA peak systolic velocity 65 cm/sec. ICA peak systolic velocity 66 cm/sec. The right ICA/CCA ratio is 1. Flow within the right vertebral artery and right ECA is directed antegrade. LEFT SIDE: No significant atherosclerotic plaque on forte-scale images. Distal CCA peak systolic velocity 66 cm/sec. ICA peak systolic velocity 76 cm/sec. The left ICA/CCA ratio is 1.2. Flow within the left vertebral artery and left ECA is directed antegrade. Carotid legend: CCA = common carotid artery ICA = internal carotid artery ECA = external carotid artery IMPRESSION: No hemodynamically significant stenosis. Electronically signed by: Todd King DO (07/04/2018 2:11 PM) [facility]
--- NOTE | 2018-07-04 15:10 | PDOC2 ---
NEUROLOGY CONSULT Date of Admission Date of Admission DATE: 07/04/18 TIME: 14:57 Reason for Consult Reason for Consult: IMPRESSION: Dizziness and light headiness for 2 weeks. Vertigo x 2 weeks. BPPV likely. Headache. Orthostatic hypotension. UTI. DM. Hypokalemia. Anxiety. Obesity. RECOMMENDATIONS/PLAN: Ortho HR and BP. Meclizine 12.5 mg tid. Carotid A US + Doppler. Lab: see orders. OT/PT. Brain MRI is not improving. HCT: negative. HISTORY OF THE PRESENT ILLNESS: 43-y-old [place] origin female patient has been having symptoms of dizziness, vertigo, light headiness for about 2 weeks to come to the ER of [facility]. She was eventually admitted for further evaluation. She stated her symptoms were better in lying position, but worse in standing position and walking. No cranial, sensory or motor deficits. PAST MEDICAL HISTORY: Please see above. PAST SURGERY HISTORY: No major surgery recently. ALLERGY: NKDA MEDICATIONS: Refer to [facility] HISTORY: Non contributory. SOCIAL HISTORY: Lives at home. Denies smoking, drinking, and illicit drug use. REVIEW OF SYSTEMS: Constitutional:Obesity. Head: No traumatic brain or head injury. Skin: No edema, or rash. Ear: No infection. Eyes: No vision loss or color blindness. Nose: No bleeding or purulent discharges. Hearing: No hearing decrease. Neck: No injury. Breast: No history of cancer, masses,or discharges. Cardiac: No [place], arrhythmia. Pulmonary: No pneumonia, COPD. GI: No GI ulcer, GI bleeding. Urinary/genital: UTI. Endocrinologic: Diabetes Mellitus ? Skeletomuscular: No muscular atrophy, deformity. Neurological: see HP. Psychiatric: Denies drug use/abuse. Otherwise, not [id number] review of systems. PHYSICAL EXAMINATION: General appearance is in subacute distress. HEENT: Normocephalic and nontraumatic. Eyes, nose, ears, and throat are unremarkable. Neck is supple. No lymphadenopathy. No bruits are heard over the carotid artery. No crepitus. Cardiovascular: S1, S2, regular rate and rhythm. Pulmonary: Clear to auscultation bilaterally. Abdomen: Bowel sounds are positive. Abdomen is soft, nontender, and nondistended. Extremities: No rash, lesions, or edema. No restriction of range of motion NEUROLOGICAL EXAMINATION: Alert Oriented to time, place and person. PERRL. EOMI. CN: no focal findings. Muscle tone: within normal. Muscle strength: 5 DTR: 2 Plantar reflex: Flexor response bilaterally Gait: not examined in bed. Sensory exam: no abnormal findings. No cerebellar signs elicited. F-T-N test accurate. Current Medications Current Medications Current Medications Aspirin (Children'S Aspirin) 324 mg 1X ONCE PO Last administered on 07/03/18 23:28; Start 07/03/18 at 22:00; Stop 07/03/18 at 22:01; Status DC Sodium Chloride 1,000 ml @ 1,000 mls/hr 1X ONCE IV Last administered on at 23:28; Start 07/03/18 at 22:00; Stop 07/03/18 at 22:59; Status DC Ceftriaxone Sodium 50 ml @ 100 mls/hr 1X ONCE IV Last administered on at 23:28; Start 07/03/18 at 23:00; Stop 07/03/18 at 23:29; Status DC Dexamethasone Sodium Phosphate (Decadron) 10 mg 1X ONCE IV Last administered on 07/04/18at 00:22; Start 07/04/18 at 00:00; Stop 07/04/18 at 00:01; Status DC Ketorolac Tromethamine (Toradol 30mg Vial) 30 mg 1X ONCE IV Last administered on 07/04/18at 00:23; Start 07/04/18 at 00:00; Stop 07/04/18 at 00:01; Status DC Metoclopramide HCl (Reglan Vial) 10 mg 1X ONCE IV Last administered on at 00:22; Start 07/04/18 at 00:00; Stop 07/04/18 at 00:01; Status DC Diphenhydramine HCl (Benadryl) 50 mg 1X ONCE IVP Last administered on at 00:24; Start 07/04/18 at 00:00; Stop 07/04/18 at 00:01; Status DC Ondansetron HCl (Zofran) 4 mg PRN Q8HRS PRN IV NAUSEA/VOMITING 1ST CHOICE; Start 07/04/18 at 00:00; Stop 07/04/18 at 23:59 Acetaminophen (Tylenol) 650 mg PRN Q4HRS PRN PO FEVER; Start 07/04/18 at 00:00 ; Stop 07/04/18 at 23:59 Potassium Chloride (Klor-Con) 40 meq 1X ONCE PO Last administered on at 10:44; Start 07/04/18 at 10:30; Stop 07/04/18 at 10:31; Status DC Ketorolac Tromethamine (Toradol 30mg Vial) 30 mg PRN Q6HRS PRN IV PAIN Last administered on 07/04/18at 10:44; Start 07/04/18 at 10:15; Stop 07/09/18 at 10:14 Pantoprazole Sodium (Protonix) 40 mg DAILYAC PO ; Start 07/04/18 at 14:30 Clonazepam (KlonoPIN) 0.5 mg BID PO ; Start 07/04/18 at 15:00 Duloxetine HCl (Cymbalta) 30 mg DAILY PO ; Start 07/04/18 at 15:00 Active Scripts Active Reported Multivitamins (Multivitamin) 1 Each Tablet 1 Each PO DAILY Vitamin D3 (Cholecalciferol (Vitamin D3)) 1,000 Unit Tablet 1,000 Unit PO DAILY Omeprazole 20 Mg Tablet.dr 20 Mg PO DAILY Allergies Allergies: Allergies Coded Allergies Type Severity Reaction Last Updated Verified No Known Drug Allergies 06/06/17 No ROS Review of System The patient denies any associated fevers, chills, headache, ear pain, rhinorrhea , sore throat, stiff neck, productive cough, chest pain, shortness of breath, back or flank pain, abdominal pain, nausea, vomiting, diarrhea, constipation, dysuria, rash, numbness, weakness, tingling, incontinence, difficulty ambulating, or diaphoresis. Physical Exam Physical Exam General: Well developed, well nourished, no acute distress, well appearing HEENT: Pupils equally round and reactive to light, EOMI, no discharge, normal conjunctiva Neck: Supple, no nuchal rigidity, no JVD, trachea midline, no tenderness Cardiac: RRR, no murmurs, no gallops, no rubs Chest/Lungs: CTAB, no wheeze, no rhonchi, no crackles Abdomen: soft, non-distended, no guarding, no peritoneal signs, non-tender Back: No tenderness Extremities: no edema, pulses intact, non-tender,capillary refill <3 sec bilateral upper and lower extremities, Neuro: Alert and oriented x 4, no focal deficits, normal speech Vitals Vitals: Vital Signs Date Time Temp Pulse Resp B/P (MAP) Pulse Ox O2 Delivery O2 Flow Rate FiO2 07/04/18 14:46 98.0 53 17 112/63 (79) 96 Room Air 98.0 Labs Labs Laboratory Tests Test 07/03/18 21:10 07/03/18 21:20 07/03/18 22:40 07/04/18 10:50 Urine Collection Type Void Urine Color Yellow Urine Clarity Clear Urine pH 6.0 Urine Specific [place] 1.015 Urine Protein Negative mg/dL (NEG-TRACE) Urine Glucose (UA) Negative mg/dL (NEG) Urine Ketones (Stick) Negative mg/dL (NEG) Urine Blood Trace (NEG) Urine Nitrite Negative (NEG) Urine Bilirubin Negative (NEG) Urine Urobilinogen Dipstick 0.2 mg/dL (0.2 mg/dL) Urine Leukocyte Esterase Small (NEG) Urine RBC 0 /HPF (0-2) Urine WBC >40 /HPF (0-4) Urine Squamous Epithelial Cells Mod /LPF Urine Bacteria Moderate /HPF (0-FEW) Urine Mucus Marked /LPF Bedside Urine HCG, Qualitative Hcg negative (Negative) White Blood Count 11.6 x10^3/uL (4.0-11.0) Red Blood Count 4.65 x10^6/uL (3.50-5.40) Hemoglobin 13.0 g/dL (12.0-15.5) Hematocrit 37.8 % (36.0-47.0) Mean Corpuscular Volume 81 fL (79-100) Mean Corpuscular Hemoglobin 28 pg (25-35) Mean Corpuscular Hemoglobin Concent 34 g/dL (31-37) Red Cell Distribution Width 15.3 % (11.5-14.5) Platelet Count 403 x10^3/uL (140-400) Neutrophils (%) (Auto) 50 % (31-73) Lymphocytes (%) (Auto) 41 % (24-48) Monocytes (%) (Auto) 8 % (0-9) Eosinophils (%) (Auto) 1 % (0-3) Basophils (%) (Auto) 1 % (0-3) Neutrophils # (Auto) 5.7 x10^3uL (1.8-7.7) Lymphocytes # (Auto) 4.7 x10^3/uL (1.0-4.8) Monocytes # (Auto) 0.9 x10^3/uL (0.0-1.1) Eosinophils # (Auto) 0.2 x10^3/uL (0.0-0.7) Basophils # (Auto) 0.1 x10^3/uL (0.0-0.2) Prothrombin Time 13.1 SEC (11.7-14.0) Prothromb Time International Ratio 1.0 (0.8-1.1) Sodium Level 141 mmol/L (136-145) Potassium Level 3.2 mmol/L (3.5-5.1) Chloride Level 105 mmol/L (98-107) Carbon Dioxide Level 27 mmol/L (21-32) Anion Gap 9 (6-14) Blood Urea Nitrogen 12 mg/dL (7-20) Creatinine 0.7 mg/dL (0.6-1.0) Estimated GFR (Cockcroft-Gault) 90.9 BUN/Creatinine Ratio 17 (6-20) Glucose Level 126 mg/dL (70-99) Calcium Level 9.3 mg/dL (8.5-10.1) Magnesium Level 2.1 mg/dL (1.8-2.4) Total Bilirubin 0.2 mg/dL (0.2-1.0) Aspartate Amino Transf (AST/SGOT) 19 U/L (15-37) Alanine Aminotransferase (ALT/SGPT) 23 U/L (14-59) Alkaline Phosphatase 75 U/L (46-116) Creatine Kinase 74 U/L (26-192) Creatine Kinase MB (Mass) 0.7 ng/mL (0.0-3.6) Creatine Kinase MB Relative Index % (0-4) Troponin I Quantitative < 0.017 ng/mL (0.000-0.055) < 0.017 ng/mL (0.000-0.055) [id number]-Cru-[id number]-Type Natriuretic Peptide 125 pg/mL (0-124) Total Protein 7.3 g/dL (6.4-8.2) Albumin 3.5 g/dL (3.4-5.0) Albumin/Globulin Ratio 0.9 (1.0-1.7) Lipase 171 U/L (73-393) Erythrocyte Sedimentation Rate 9 (0-25) Thyroid Stimulating Hormone (TSH) 1.054 uIU/mL (0.358-3.74) Laboratory Tests Test 07/03/18 21:10 07/03/18 21:20 07/03/18 22:40 07/04/18 10:50 Urine Collection Type Void Urine Color Yellow Urine Clarity Clear Urine pH 6.0 Urine Specific [place] 1.015 Urine Protein Negative mg/dL (NEG-TRACE) Urine Glucose (UA) Negative mg/dL (NEG) Urine Ketones (Stick) Negative mg/dL (NEG) Urine Blood Trace (NEG) Urine Nitrite Negative (NEG) Urine Bilirubin Negative (NEG) Urine Urobilinogen Dipstick 0.2 mg/dL (0.2 mg/dL) Urine Leukocyte Esterase Small (NEG) Urine RBC 0 /HPF (0-2) Urine WBC >40 /HPF (0-4) Urine Squamous Epithelial Cells Mod /LPF Urine Bacteria Moderate /HPF (0-FEW) Urine Mucus Marked /LPF Bedside Urine HCG, Qualitative Hcg negative (Negative) White Blood Count 11.6 x10^3/uL (4.0-11.0) Red Blood Count 4.65 x10^6/uL (3.50-5.40) Hemoglobin 13.0 g/dL (12.0-15.5) Hematocrit 37.8 % (36.0-47.0) Mean Corpuscular Volume 81 fL (79-100) Mean Corpuscular Hemoglobin 28 pg (25-35) Mean Corpuscular Hemoglobin Concent 34 g/dL (31-37) Red Cell Distribution Width 15.3 % (11.5-14.5) Platelet Count 403 x10^3/uL (140-400) Neutrophils (%) (Auto) 50 % (31-73) Lymphocytes (%) (Auto) 41 % (24-48) Monocytes (%) (Auto) 8 % (0-9) Eosinophils (%) (Auto) 1 % (0-3) Basophils (%) (Auto) 1 % (0-3) Neutrophils # (Auto) 5.7 x10^3uL (1.8-7.7) Lymphocytes # (Auto) 4.7 x10^3/uL (1.0-4.8) Monocytes # (Auto) 0.9 x10^3/uL (0.0-1.1) Eosinophils # (Auto) 0.2 x10^3/uL (0.0-0.7) Basophils # (Auto) 0.1 x10^3/uL (0.0-0.2) Prothrombin Time 13.1 SEC (11.7-14.0) Prothromb Time International Ratio 1.0 (0.8-1.1) Sodium Level 141 mmol/L (136-145) Potassium Level 3.2 mmol/L (3.5-5.1) Chloride Level 105 mmol/L (98-107) Carbon Dioxide Level 27 mmol/L (21-32) Anion Gap 9 (6-14) Blood Urea Nitrogen 12 mg/dL (7-20) Creatinine 0.7 mg/dL (0.6-1.0) Estimated GFR (Cockcroft-Gault) 90.9 BUN/Creatinine Ratio 17 (6-20) Glucose Level 126 mg/dL (70-99) Calcium Level 9.3 mg/dL (8.5-10.1) Magnesium Level 2.1 mg/dL (1.8-2.4) Total Bilirubin 0.2 mg/dL (0.2-1.0) Aspartate Amino Transf (AST/SGOT) 19 U/L (15-37) Alanine Aminotransferase (ALT/SGPT) 23 U/L (14-59) Alkaline Phosphatase 75 U/L (46-116) Creatine Kinase 74 U/L (26-192) Creatine Kinase MB (Mass) 0.7 ng/mL (0.0-3.6) Creatine Kinase MB Relative Index % (0-4) Troponin I Quantitative < 0.017 ng/mL (0.000-0.055) < 0.017 ng/mL (0.000-0.055) EJ-[id number]-Type Natriuretic Peptide 125 pg/mL (0-124) Total Protein 7.3 g/dL (6.4-8.2) Albumin 3.5 g/dL (3.4-5.0) Albumin/Globulin Ratio 0.9 (1.0-1.7) Lipase 171 U/L (73-393) Erythrocyte Sedimentation Rate 9 (0-25) Thyroid Stimulating Hormone (TSH) 1.054 uIU/mL (0.358-3.74) NICKY ESPARZA MD Jul 04, 2018 15:10
--- NOTE | 2018-07-04 15:11 | PDOC2 ---
CONSULT Date of Consult Date of Consult DATE: 07/04/18 TIME: 15:00 Reason for Consult Reason for Consult: Palpitations Referring Physician Referring Physician: Dr. Taylor Identification/Chief Complaint Chief Complaint Palpitations, headache, left side of the body pains, numbness and multiple other complaints History of Present Illness Reason for Visit: This patient is a very pleasant 43-year-old lady that over the past 2 years has had multiple cardiac workups done in [facility] as well as [facility]. The patient has been having episodes of palpitations and with this she has associated pains the pains she describes that started around her head and go down to the left hip. The pain initially he is a throbbing pain that then changes to a stabbing pain and some of the times she has mostly abdominal pains usually to the left side of the abdomen and the lower abdomen. In addition to this she gets short of breath and feels that she is very hot and her hands are itching and her feet are numb this has been going on for about 2 weeks. In addition to this problems she has been having some problems with difficulty swallowing and while trying to eat a pear she felt that it would not go down and got stuck and tried to drink some water but it would not go down and finally she started throwing up and was able to bring up the pieces of the pear. When she has the palpitations she does not get lightheaded and has not had any loss of consciousness but yesterday she was dizzy and her blood pressure was low. This brought her into the emergency room where she was seen and evaluated and he was decided to admit her. At the time that I examine her she was not having any chest pains but appeared to be rather anxious and the patient states that she is very worried that there is something seriously wrong with her and that she has gone to 2 different hospitals and the workups have only shown GERD. The patient has 2 healthy children and denies any problems during the pregnancies. Past Medical History GI: GERD Psych: Anxiety Current Problem List Problem List Problems Medical Problems: (1) Dizziness Status: Acute (2) Headache Status: Acute (3) Palpitations Status: Acute (4) UTI (urinary tract infection) Status: Acute Current Medications Current Medications Current Medications Aspirin (Children'S Aspirin) 324 mg 1X ONCE PO Last administered on 07/03/18at 23:28; Start 07/03/18 at 22:00; Stop 07/03/18 at 22:01; Status DC Sodium Chloride 1,000 ml @ 1,000 mls/hr 1X ONCE IV Last administered on at 23:28; Start 07/03/18 at 22:00; Stop 07/03/18 at 22:59; Status DC Ceftriaxone Sodium 50 ml @ 100 mls/hr 1X ONCE IV Last administered on at 23:28; Start 07/03/18 at 23:00; Stop 07/03/18 at 23:29; Status DC Dexamethasone Sodium Phosphate (Decadron) 10 mg 1X ONCE IV Last administered on 07/04/18at 00:22; Start 07/04/18 at 00:00; Stop 07/04/18 at 00:01; Status DC Ketorolac Tromethamine (Toradol 30mg Vial) 30 mg 1X ONCE IV Last administered on 07/04/18at 00:23; Start 07/04/18 at 00:00; Stop 07/04/18 at 00:01; Status DC Metoclopramide HCl (Reglan Vial) 10 mg 1X ONCE IV Last administered on at 00:22; Start 07/04/18 at 00:00; Stop 07/04/18 at 00:01; Status DC Diphenhydramine HCl (Benadryl) 50 mg 1X ONCE IVP Last administered on at 00:24; Start 07/04/18 at 00:00; Stop 07/04/18 at 00:01; Status DC Ondansetron HCl (Zofran) 4 mg PRN Q8HRS PRN IV NAUSEA/VOMITING 1ST CHOICE; Start 07/04/18 at 00:00; Stop 07/04/18 at 23:59 Acetaminophen (Tylenol) 650 mg PRN Q4HRS PRN PO FEVER; Start 07/04/18 at 00:00 ; Stop 07/04/18 at 23:59 Potassium Chloride (Klor-Con) 40 meq 1X ONCE PO Last administered on at 10:44; Start 07/04/18 at 10:30; Stop 07/04/18 at 10:31; Status DC Ketorolac Tromethamine (Toradol 30mg Vial) 30 mg PRN Q6HRS PRN IV PAIN Last administered on 07/04/18at 10:44; Start 07/04/18 at 10:15; Stop 07/09/18 at 10:14 Pantoprazole Sodium (Protonix) 40 mg DAILYAC PO ; Start 07/04/18 at 14:30 Clonazepam (KlonoPIN) 0.5 mg BID PO ; Start 07/04/18 at 15:00 Duloxetine HCl (Cymbalta) 30 mg DAILY PO ; Start 07/04/18 at 15:00 Active Scripts Active Reported Multivitamins (Multivitamin) 1 Each Tablet 1 Each PO DAILY Vitamin D3 (Cholecalciferol (Vitamin D3)) 1,000 Unit Tablet 1,000 Unit PO DAILY Omeprazole 20 Mg Tablet.dr 20 Mg PO DAILY Allergies Allergies: Coded Allergies: No Known Drug Allergies (Unverified , 06/06/17) Physical Exam General: Alert, Oriented X3, Cooperative HEENT: Atraumatic, PERRLA Lungs: Clear to auscultation Heart: Regular rate, Normal S1, Normal S2 Abdomen: Other (bowel sounds are present. Mild tenderness over the epigastrium and left side of the abdomen) Extremities: No edema, Normal pulses Psych/Mental Status: Mental status NL Vitals VITALS Vital Signs Date Time Temp Pulse Resp B/P (MAP) Pulse Ox O2 Delivery O2 Flow Rate FiO2 07/04/18 14:46 98.0 53 17 112/63 (79) 96 Room Air 98.0 Labs Labs Laboratory Tests Test 07/03/18 21:10 07/03/18 21:20 07/03/18 22:40 07/04/18 10:50 Urine Collection Type Void Urine Color Yellow Urine Clarity Clear Urine pH 6.0 Urine Specific [place] 1.015 Urine Protein Negative mg/dL (NEG-TRACE) Urine Glucose (UA) Negative mg/dL (NEG) Urine Ketones (Stick) Negative mg/dL (NEG) Urine Blood Trace (NEG) Urine Nitrite Negative (NEG) Urine Bilirubin Negative (NEG) Urine Urobilinogen Dipstick 0.2 mg/dL (0.2 mg/dL) Urine Leukocyte Esterase Small (NEG) Urine RBC 0 /HPF (0-2) Urine WBC >40 /HPF (0-4) Urine Squamous Epithelial Cells Mod /LPF Urine Bacteria Moderate /HPF (0-FEW) Urine Mucus Marked /LPF Bedside Urine HCG, Qualitative Hcg negative (Negative) White Blood Count 11.6 x10^3/uL (4.0-11.0) Red Blood Count 4.65 x10^6/uL (3.50-5.40) Hemoglobin 13.0 g/dL (12.0-15.5) Hematocrit 37.8 % (36.0-47.0) Mean Corpuscular Volume 81 fL (79-100) Mean Corpuscular Hemoglobin 28 pg (25-35) Mean Corpuscular Hemoglobin Concent 34 g/dL (31-37) Red Cell Distribution Width 15.3 % (11.5-14.5) Platelet Count 403 x10^3/uL (140-400) Neutrophils (%) (Auto) 50 % (31-73) Lymphocytes (%) (Auto) 41 % (24-48) Monocytes (%) (Auto) 8 % (0-9) Eosinophils (%) (Auto) 1 % (0-3) Basophils (%) (Auto) 1 % (0-3) Neutrophils # (Auto) 5.7 x10^3uL (1.8-7.7) Lymphocytes # (Auto) 4.7 x10^3/uL (1.0-4.8) Monocytes # (Auto) 0.9 x10^3/uL (0.0-1.1) Eosinophils # (Auto) 0.2 x10^3/uL (0.0-0.7) Basophils # (Auto) 0.1 x10^3/uL (0.0-0.2) Prothrombin Time 13.1 SEC (11.7-14.0) Prothromb Time International Ratio 1.0 (0.8-1.1) Sodium Level 141 mmol/L (136-145) Potassium Level 3.2 mmol/L (3.5-5.1) Chloride Level 105 mmol/L (98-107) Carbon Dioxide Level 27 mmol/L (21-32) Anion Gap 9 (6-14) Blood Urea Nitrogen 12 mg/dL (7-20) Creatinine 0.7 mg/dL (0.6-1.0) Estimated GFR (Cockcroft-Gault) 90.9 BUN/Creatinine Ratio 17 (6-20) Glucose Level 126 mg/dL (70-99) Calcium Level 9.3 mg/dL (8.5-10.1) Magnesium Level 2.1 mg/dL (1.8-2.4) Total Bilirubin 0.2 mg/dL (0.2-1.0) Aspartate Amino Transf (AST/SGOT) 19 U/L (15-37) Alanine Aminotransferase (ALT/SGPT) 23 U/L (14-59) Alkaline Phosphatase 75 U/L (46-116) Creatine Kinase 74 U/L (26-192) Creatine Kinase MB (Mass) 0.7 ng/mL (0.0-3.6) Creatine Kinase MB Relative Index % (0-4) Troponin I Quantitative < 0.017 ng/mL (0.000-0.055) < 0.017 ng/mL (0.000-0.055) IJ-Tbm-U-Type Natriuretic Peptide 125 pg/mL (0-124) Total Protein 7.3 g/dL (6.4-8.2) Albumin 3.5 g/dL (3.4-5.0) Albumin/Globulin Ratio 0.9 (1.0-1.7) Lipase 171 U/L (73-393) Erythrocyte Sedimentation Rate 9 (0-25) Thyroid Stimulating Hormone (TSH) 1.054 uIU/mL (0.358-3.74) Laboratory Tests Test 07/03/18 21:10 07/03/18 21:20 07/03/18 22:40 07/04/18 10:50 Urine Collection Type Void Urine Color Yellow Urine Clarity Clear Urine pH 6.0 Urine Specific [place] 1.015 Urine Protein Negative mg/dL (NEG-TRACE) Urine Glucose (UA) Negative mg/dL (NEG) Urine Ketones (Stick) Negative mg/dL (NEG) Urine Blood Trace (NEG) Urine Nitrite Negative (NEG) Urine Bilirubin Negative (NEG) Urine Urobilinogen Dipstick 0.2 mg/dL (0.2 mg/dL) Urine Leukocyte Esterase Small (NEG) Urine RBC 0 /HPF (0-2) Urine WBC >40 /HPF (0-4) Urine Squamous Epithelial Cells Mod /LPF Urine Bacteria Moderate /HPF (0-FEW) Urine Mucus Marked /LPF Bedside Urine HCG, Qualitative Hcg negative (Negative) White Blood Count 11.6 x10^3/uL (4.0-11.0) Red Blood Count 4.65 x10^6/uL (3.50-5.40) Hemoglobin 13.0 g/dL (12.0-15.5) Hematocrit 37.8 % (36.0-47.0) Mean Corpuscular Volume 81 fL (79-100) Mean Corpuscular Hemoglobin 28 pg (25-35) Mean Corpuscular Hemoglobin Concent 34 g/dL (31-37) Red Cell Distribution Width 15.3 % (11.5-14.5) Platelet Count 403 x10^3/uL (140-400) Neutrophils (%) (Auto) 50 % (31-73) Lymphocytes (%) (Auto) 41 % (24-48) Monocytes (%) (Auto) 8 % (0-9) Eosinophils (%) (Auto) 1 % (0-3) Basophils (%) (Auto) 1 % (0-3) Neutrophils # (Auto) 5.7 x10^3uL (1.8-7.7) Lymphocytes # (Auto) 4.7 x10^3/uL (1.0-4.8) Monocytes # (Auto) 0.9 x10^3/uL (0.0-1.1) Eosinophils # (Auto) 0.2 x10^3/uL (0.0-0.7) Basophils # (Auto) 0.1 x10^3/uL (0.0-0.2) Prothrombin Time 13.1 SEC (11.7-14.0) Prothromb Time International Ratio 1.0 (0.8-1.1) Sodium Level 141 mmol/L (136-145) Potassium Level 3.2 mmol/L (3.5-5.1) Chloride Level 105 mmol/L (98-107) Carbon Dioxide Level 27 mmol/L (21-32) Anion Gap 9 (6-14) Blood Urea Nitrogen 12 mg/dL (7-20) Creatinine 0.7 mg/dL (0.6-1.0) Estimated GFR (Cockcroft-Gault) 90.9 BUN/Creatinine Ratio 17 (6-20) Glucose Level 126 mg/dL (70-99) Calcium Level 9.3 mg/dL (8.5-10.1) Magnesium Level 2.1 mg/dL (1.8-2.4) Total Bilirubin 0.2 mg/dL (0.2-1.0) Aspartate Amino Transf (AST/SGOT) 19 U/L (15-37) Alanine Aminotransferase (ALT/SGPT) 23 U/L (14-59) Alkaline Phosphatase 75 U/L (46-116) Creatine Kinase 74 U/L (26-192) Creatine Kinase MB (Mass) 0.7 ng/mL (0.0-3.6) Creatine Kinase MB Relative Index % (0-4) Troponin I Quantitative < 0.017 ng/mL (0.000-0.055) < 0.017 ng/mL (0.000-0.055) DP-Zfx-N-Type Natriuretic Peptide 125 pg/mL (0-124) Total Protein 7.3 g/dL (6.4-8.2) Albumin 3.5 g/dL (3.4-5.0) Albumin/Globulin Ratio 0.9 (1.0-1.7) Lipase 171 U/L (73-393) Erythrocyte Sedimentation Rate 9 (0-25) Thyroid Stimulating Hormone (TSH) 1.054 uIU/mL (0.358-3.74) Assessment/Plan Assessment/Plan This patient comes in with multiple complaints and it is difficult to differentiate in between her anxiety, psychosomatic complaints and physical problems. I would like to get an echocardiogram to evaluate the heart structurally and I would like to monitor her and see if we can catch one of these palpitations episodes. In addition to that I think the patient may need to have a hormonal workup including evaluation of the thyroid and also consider a GI evaluation. Thank you very much for asking me to participate in the care of this patient KENDELL WELDON MD Jul 04, 2018 15:11
[2018-07-04 15:12] LABS: AMPHETAMINE/METHAMPHETAMINE NEG (NEG); BARBITURATES NEG (NEG); BENZODIAZEPINES NEG (NEG); CANNABINOIDS NEG (NEG); COCAINE NEG (NEG); METHADONE NEG (NEG); OPIATES NEG (NEG); PHENCYCLIDINE NEG (NEG)
[2018-07-04] MEDS ORDERED: MECLIZINE HCL 12.5 MG TABLET. PO ONE (15:15)
[2018-07-04] MEDS: MECLIZINE HCL 12.5 MG TABLET. PO SCH ×2 (17:15→20:42)
[2018-07-04] MEDS: DULoxetine HCL 30 MG CAPSULE.DR PO SCH (17:15)
[2018-07-04] MEDS: PANTOPRAZOLE 40 MG TABLET.DR. PO SCH (17:15)
[2018-07-04] MEDS: clonazePAM 0.5 MG TABLET PO SCH ×2 (17:15→20:42)
[2018-07-05] MEDS: KETOROLAC 30 MG/ML VIAL. IV PRN ×2 (02:47→21:46)
[2018-07-05 03:48] VITALS: BP 106/52
[2018-07-05 05:31] LABS: HEMOGLOBIN 12.5 g/dL (12.0-15.5); RED BLOOD COUNT 4.55 x10^6/uL (3.50-5.40); RED CELL DISTRIBUTION WIDTH 15.7 % (11.5-14.5)
[2018-07-05 07:30] VITALS: BP 97/59
--- NOTE | 2018-07-05 08:55 | RAD ---
Abdominal ultrasound complete: Reason for examination: Bilateral upper quadrant pain for 2 weeks. Patient states the pain is worse on the left side. Pancreas is poorly visualized. The liver is normal in size at 13.9 cm but shows some fatty infiltration. The gallbladder wall is thickened at 3.5 mm but no cholelithiasis or sludge is seen. Common bile duct is normal in caliber at 3.4 mm. The spleen is normal in size at 8.5 cm in greatest dimension without a focal lesion. No abnormality seen at the visualized portions of inferior vena cava and the aorta is poorly visualized. The right kidney measures 10.5 x 4.7 x 4.8 cm in greatest dimension and shows normal cortical medullary differentiation with no mass or hydronephrosis. The left kidney measures 10.3 x 6.6 x 6.2 cm in greatest dimension and shows normal cortical medullary differentiation with no mass or hydronephrosis. IMPRESSION: Fatty infiltration in the liver. Gallbladder wall is thickened at 3.5 mm but no cholelithiasis or sludge is present. Electronically signed by: Valentina Canela MD (07/05/2018 8:51 AM) [facility]
[2018-07-05] MEDS: clonazePAM 0.5 MG TABLET PO SCH ×2 (09:28→21:45)
[2018-07-05] MEDS: DULoxetine HCL 30 MG CAPSULE.DR PO SCH (09:28)
[2018-07-05] MEDS: PANTOPRAZOLE 40 MG TABLET.DR. PO SCH (09:29)
[2018-07-05] MEDS: MECLIZINE HCL 12.5 MG TABLET. PO SCH ×3 (09:29→21:45)
[2018-07-05 10:15] LABS: ALBUMIN 3.2 g/dL (3.4-5.0); ALBUMIN/GLOBULIN RATIO 0.9 (1.0-1.7); CALCIUM 8.7 mg/dL (8.5-10.1); CREATININE 0.7 mg/dL (0.6-1.0); GFR 90.9; POTASSIUM 4.1 mmol/L (3.5-5.1); TOTAL BILIRUBIN 0.3 mg/dL (0.2-1.0); TOTAL PROTEIN 6.9 g/dL (6.4-8.2)
[2018-07-05 10:47] VITALS: BP 101/60
--- NOTE | 2018-07-05 12:33 | PDOC ---
PROGRESS NOTES Subjective Subjective Patient complains of feeling flush but no palpitations at this time she still has some pain to the left side of the body. The echocardiogram was done and it shows a normal left ventricular systolic function and no significant valvular disease. She had a lot of questions with regards to the possible causes of hypotension and is quite anxious about this. Objective Objective Vital Signs Date Time Temp Pulse Resp B/P (MAP) Pulse Ox O2 Delivery O2 Flow Rate FiO2 07/05/18 10:47 97.8 50 16 101/60 (74) 97 Room Air 97.8 Intake and Output 07/05/18 07:00 Intake Total 940 ml Balance 940 ml Intake Oral 940 ml # Voids 5 Physical Exam Physical Exam No significant changes in cardiac exam Assessment Assessment The patient appears to be stable cardiac-bowen however to further evaluate her hypotension I would like to do a 24-hour urine collection for catecholamines and may also need to have evaluation for carcinoid syndrome. Comment Review of Relevant I have reviewed the following items dakotah (where applicable) has been applied. Labs Laboratory Tests Test 07/03/18 21:10 07/03/18 21:20 07/03/18 22:40 07/04/18 10:50 Urine Collection Type Void Urine Color Yellow Urine Clarity Clear Urine pH 6.0 Urine Specific [place] 1.015 Urine Protein Negative mg/dL (NEG-TRACE) Urine Glucose (UA) Negative mg/dL (NEG) Urine Ketones (Stick) Negative mg/dL (NEG) Urine Blood Trace (NEG) Urine Nitrite Negative (NEG) Urine Bilirubin Negative (NEG) Urine Urobilinogen Dipstick 0.2 mg/dL (0.2 mg/dL) Urine Leukocyte Esterase Small (NEG) Urine RBC 0 /HPF (0-2) Urine WBC >40 /HPF (0-4) Urine Squamous Epithelial Cells Mod /LPF Urine Bacteria Moderate /HPF (0-FEW) Urine Mucus Marked /LPF Bedside Urine HCG, Qualitative Hcg negative (Negative) White Blood Count 11.6 x10^3/uL (4.0-11.0) Red Blood Count 4.65 x10^6/uL (3.50-5.40) Hemoglobin 13.0 g/dL (12.0-15.5) Hematocrit 37.8 % (36.0-47.0) Mean Corpuscular Volume 81 fL (79-100) Mean Corpuscular Hemoglobin 28 pg (25-35) Mean Corpuscular Hemoglobin Concent 34 g/dL (31-37) Red Cell Distribution Width 15.3 % (11.5-14.5) Platelet Count 403 x10^3/uL (140-400) Neutrophils (%) (Auto) 50 % (31-73) Lymphocytes (%) (Auto) 41 % (24-48) Monocytes (%) (Auto) 8 % (0-9) Eosinophils (%) (Auto) 1 % (0-3) Basophils (%) (Auto) 1 % (0-3) Neutrophils # (Auto) 5.7 x10^3uL (1.8-7.7) Lymphocytes # (Auto) 4.7 x10^3/uL (1.0-4.8) Monocytes # (Auto) 0.9 x10^3/uL (0.0-1.1) Eosinophils # (Auto) 0.2 x10^3/uL (0.0-0.7) Basophils # (Auto) 0.1 x10^3/uL (0.0-0.2) Prothrombin Time 13.1 SEC (11.7-14.0) Prothromb Time International Ratio 1.0 (0.8-1.1) Sodium Level 141 mmol/L (136-145) Potassium Level 3.2 mmol/L (3.5-5.1) Chloride Level 105 mmol/L (98-107) Carbon Dioxide Level 27 mmol/L (21-32) Anion Gap 9 (6-14) Blood Urea Nitrogen 12 mg/dL (7-20) Creatinine 0.7 mg/dL (0.6-1.0) Estimated GFR (Cockcroft-Gault) 90.9 BUN/Creatinine Ratio 17 (6-20) Glucose Level 126 mg/dL (70-99) Calcium Level 9.3 mg/dL (8.5-10.1) Magnesium Level 2.1 mg/dL (1.8-2.4) Total Bilirubin 0.2 mg/dL (0.2-1.0) Aspartate Amino Transf (AST/SGOT) 19 U/L (15-37) Alanine Aminotransferase (ALT/SGPT) 23 U/L (14-59) Alkaline Phosphatase 75 U/L (46-116) Creatine Kinase 74 U/L (26-192) Creatine Kinase MB (Mass) 0.7 ng/mL (0.0-3.6) Creatine Kinase MB Relative Index % (0-4) Troponin I Quantitative < 0.017 ng/mL (0.000-0.055) < 0.017 ng/mL (0.000-0.055) PR-Ako-T-Type Natriuretic Peptide 125 pg/mL (0-124) Total Protein 7.3 g/dL (6.4-8.2) Albumin 3.5 g/dL (3.4-5.0) Albumin/Globulin Ratio 0.9 (1.0-1.7) Lipase 171 U/L (73-393) Erythrocyte Sedimentation Rate 9 (0-25) Thyroid Stimulating Hormone (TSH) 1.054 uIU/mL (0.358-3.74) Test 07/04/18 14:11 07/04/18 18:30 07/05/18 05:00 Urine Opiates Screen Neg (NEG) Urine Methadone Screen Neg (NEG) Urine Barbiturates Neg (NEG) Urine Phencyclidine Screen Neg (NEG) Urine Amphetamine/Methamphetamine Neg (NEG) Urine Benzodiazepines Screen Neg (NEG) Urine Cocaine Screen Neg (NEG) Urine Cannabinoids Screen Neg (NEG) Urine Ethyl Alcohol Neg (NEG) Troponin I Quantitative < 0.017 ng/mL (0.000-0.055) < 0.017 ng/mL (0.000-0.055) White Blood Count 14.0 x10^3/uL (4.0-11.0) Red Blood Count 4.55 x10^6/uL (3.50-5.40) Hemoglobin 12.5 g/dL (12.0-15.5) Hematocrit 38.0 % (36.0-47.0) Mean Corpuscular Volume 83 fL (79-100) Mean Corpuscular Hemoglobin 27 pg (25-35) Mean Corpuscular Hemoglobin Concent 33 g/dL (31-37) Red Cell Distribution Width 15.7 % (11.5-14.5) Platelet Count 401 x10^3/uL (140-400) Sodium Level 140 mmol/L (136-145) Potassium Level 4.1 mmol/L (3.5-5.1) Chloride Level 106 mmol/L (98-107) Carbon Dioxide Level 21 mmol/L (21-32) Anion Gap 13 (6-14) Blood Urea Nitrogen 12 mg/dL (7-20) Creatinine 0.7 mg/dL (0.6-1.0) Estimated GFR (Cockcroft-Gault) 90.9 BUN/Creatinine Ratio 17 (6-20) Glucose Level 80 mg/dL (70-99) Calcium Level 8.7 mg/dL (8.5-10.1) Total Bilirubin 0.3 mg/dL (0.2-1.0) Aspartate Amino Transf (AST/SGOT) 16 U/L (15-37) Alanine Aminotransferase (ALT/SGPT) 21 U/L (14-59) Alkaline Phosphatase 61 U/L (46-116) Total Protein 6.9 g/dL (6.4-8.2) Albumin 3.2 g/dL (3.4-5.0) Albumin/Globulin Ratio 0.9 (1.0-1.7) Laboratory Tests Test 07/04/18 14:11 07/04/18 18:30 07/05/18 05:00 Urine Opiates Screen Neg (NEG) Urine Methadone Screen Neg (NEG) Urine Barbiturates Neg (NEG) Urine Phencyclidine Screen Neg (NEG) Urine Amphetamine/Methamphetamine Neg (NEG) Urine Benzodiazepines Screen Neg (NEG) Urine Cocaine Screen Neg (NEG) Urine Cannabinoids Screen Neg (NEG) Urine Ethyl Alcohol Neg (NEG) Troponin I Quantitative < 0.017 ng/mL (0.000-0.055) < 0.017 ng/mL (0.000-0.055) White Blood Count 14.0 x10^3/uL (4.0-11.0) Red Blood Count 4.55 x10^6/uL (3.50-5.40) Hemoglobin 12.5 g/dL (12.0-15.5) Hematocrit 38.0 % (36.0-47.0) Mean Corpuscular Volume 83 fL (79-100) Mean Corpuscular Hemoglobin 27 pg (25-35) Mean Corpuscular Hemoglobin Concent 33 g/dL (31-37) Red Cell Distribution Width 15.7 % (11.5-14.5) Platelet Count 401 x10^3/uL (140-400) Sodium Level 140 mmol/L (136-145) Potassium Level 4.1 mmol/L (3.5-5.1) Chloride Level 106 mmol/L (98-107) Carbon Dioxide Level 21 mmol/L (21-32) Anion Gap 13 (6-14) Blood Urea Nitrogen 12 mg/dL (7-20) Creatinine 0.7 mg/dL (0.6-1.0) Estimated GFR (Cockcroft-Gault) 90.9 BUN/Creatinine Ratio 17 (6-20) Glucose Level 80 mg/dL (70-99) Calcium Level 8.7 mg/dL (8.5-10.1) Total Bilirubin 0.3 mg/dL (0.2-1.0) Aspartate Amino Transf (AST/SGOT) 16 U/L (15-37) Alanine Aminotransferase (ALT/SGPT) 21 U/L (14-59) Alkaline Phosphatase 61 U/L (46-116) Total Protein 6.9 g/dL (6.4-8.2) Albumin 3.2 g/dL (3.4-5.0) Albumin/Globulin Ratio 0.9 (1.0-1.7) Medications Current Medications Aspirin (Children'S Aspirin) 324 mg 1X ONCE PO Last administered on 07/03/18at 23:28; Start 07/03/18 at 22:00; Stop 07/03/18 at 22:01; Status DC Sodium Chloride 1,000 ml @ 1,000 mls/hr 1X ONCE IV Last administered on at 23:28; Start 07/03/18 at 22:00; Stop 07/03/18 at 22:59; Status DC Ceftriaxone Sodium 50 ml @ 100 mls/hr 1X ONCE IV Last administered on at 23:28; Start 07/03/18 at 23:00; Stop 07/03/18 at 23:29; Status DC Dexamethasone Sodium Phosphate (Decadron) 10 mg 1X ONCE IV Last administered on 07/04/18at 00:22; Start 07/04/18 at 00:00; Stop 07/04/18 at 00:01; Status DC Ketorolac Tromethamine (Toradol 30mg Vial) 30 mg 1X ONCE IV Last administered on 07/04/18at 00:23; Start 07/04/18 at 00:00; Stop 07/04/18 at 00:01; Status DC Metoclopramide HCl (Reglan Vial) 10 mg 1X ONCE IV Last administered on at 00:22; Start 07/04/18 at 00:00; Stop 07/04/18 at 00:01; Status DC Diphenhydramine HCl (Benadryl) 50 mg 1X ONCE IVP Last administered on at 00:24; Start 07/04/18 at 00:00; Stop 07/04/18 at 00:01; Status DC Ondansetron HCl (Zofran) 4 mg PRN Q8HRS PRN IV NAUSEA/VOMITING 1ST CHOICE; Start 07/04/18 at 00:00; Stop 07/04/18 at 23:59; Status DC Acetaminophen (Tylenol) 650 mg PRN Q4HRS PRN PO FEVER; Start 07/04/18 at 00:00 ; Stop 07/04/18 at 23:59; Status DC Potassium Chloride (Klor-Con) 40 meq 1X ONCE PO Last administered on at 10:44; Start 07/04/18 at 10:30; Stop 07/04/18 at 10:31; Status DC Ketorolac Tromethamine (Toradol 30mg Vial) 30 mg PRN Q6HRS PRN IV PAIN Last administered on 07/05/18at 02:47; Start 07/04/18 at 10:15; Stop 07/09/18 at 10:14 Pantoprazole Sodium (Protonix) 40 mg DAILYAC PO Last administered on 07/05/18at 09:29; Start 07/04/18 at 14:30 Clonazepam (KlonoPIN) 0.5 mg BID PO Last administered on 07/05/18at 09:28; Start 07/04/18 at 15:00 Duloxetine HCl (Cymbalta) 30 mg DAILY PO Last administered on 07/05/18at 09:28; Start 07/04/18 at 15:00 Meclizine HCl (Antivert) 12.5 mg TID PO Last administered on 07/05/18at 09:29; Start 07/04/18 at 15:30 Meclizine HCl (Antivert) 12.5 mg 1X ONCE PO ; Start 07/04/18 at 15:15; Stop at 15:16; Status UNV Active Scripts Active Reported Multivitamins (Multivitamin) 1 Each Tablet 1 Each PO DAILY Vitamin D3 (Cholecalciferol (Vitamin D3)) 1,000 Unit Tablet 1,000 Unit PO DAILY Omeprazole 20 Mg Tablet.dr 20 Mg PO DAILY Vitals/I & O Vital Sign - Last 24 Hours 07/04/18 07/04/18 07/04/18 07/04/18 14:46 19:10 19:53 23:36 Temp 98.0 98.1 97.9 98.0 98.1 97.9 Pulse 53 65 45 Resp 17 16 16 B/P (MAP) 112/63 (79) 102/58 (73) 104/59 (74) Pulse Ox 96 100 95 O2 Delivery Room Air Room Air Room Air Room Air 07/05/18 07/05/18 07/05/18 03:48 07:30 10:47 Temp 98.0 97.9 97.8 98.0 97.9 97.8 Pulse 61 46 50 Resp 16 17 16 B/P (MAP) 106/52 (70) 97/59 (72) 101/60 (74) Pulse Ox 97 99 97 O2 Delivery Room Air Room Air Room Air Intake and Output 07/04/18 07/04/18 07/05/18 15:00 23:00 07:00 Intake Total 440 ml 500 ml Balance 440 ml 500 ml KENDELL WELDON MD Jul 05, 2018 12:33
--- NOTE | 2018-07-05 12:57 | PDOC ---
PROGRESS NOTES Chief Complaint Chief Complaint 1-chest pain , enzymes neg, echo normal likely not cardiac 2-headache and dizziness, seen by neuro 3-epigastric pain and GERD even on PPI , will consult GI 4-obesity 5- hypotension with episodes of flushing will check 24 h urine for 5HIAA to R/ O carcinoid 7-bradycardia , TSH normal 8- anxiety and depression started Cymbalta and clonazepam History of Present Illness History of Present Illness enzyme negative, echo ok , continue to have epigastric pain , abd US with thickening gallbladder wall, no stones consult GI may need PIPIDA scan, she agrees that she is nervous and depressed and is willing to take medication but wants to make sure nothing is wrong because her symptoms are real Vitals Vitals Vital Signs Date Time Temp Pulse Resp B/P (MAP) Pulse Ox O2 Delivery O2 Flow Rate FiO2 07/05/18 10:47 97.8 50 16 101/60 (74) 97 Room Air 97.8 Physical Exam General: Alert, Oriented X3, Cooperative Heart: Regular rate, Normal S1, Normal S2 Lungs: Clear Abdomen: Normal bowel sounds, Other (bowel sounds are present. Mild tenderness over the epigastrium and left side of the abdomen) Extremities: No edema, Normal pulses Labs LABS Laboratory Tests Test 07/04/18 14:11 07/04/18 18:30 07/05/18 05:00 Urine Opiates Screen Neg (NEG) Urine Methadone Screen Neg (NEG) Urine Barbiturates Neg (NEG) Urine Phencyclidine Screen Neg (NEG) Urine Amphetamine/Methamphetamine Neg (NEG) Urine Benzodiazepines Screen Neg (NEG) Urine Cocaine Screen Neg (NEG) Urine Cannabinoids Screen Neg (NEG) Urine Ethyl Alcohol Neg (NEG) Troponin I Quantitative < 0.017 ng/mL (0.000-0.055) < 0.017 ng/mL (0.000-0.055) White Blood Count 14.0 x10^3/uL (4.0-11.0) Red Blood Count 4.55 x10^6/uL (3.50-5.40) Hemoglobin 12.5 g/dL (12.0-15.5) Hematocrit 38.0 % (36.0-47.0) Mean Corpuscular Volume 83 fL (79-100) Mean Corpuscular Hemoglobin 27 pg (25-35) Mean Corpuscular Hemoglobin Concent 33 g/dL (31-37) Red Cell Distribution Width 15.7 % (11.5-14.5) Platelet Count 401 x10^3/uL (140-400) Sodium Level 140 mmol/L (136-145) Potassium Level 4.1 mmol/L (3.5-5.1) Chloride Level 106 mmol/L (98-107) Carbon Dioxide Level 21 mmol/L (21-32) Anion Gap 13 (6-14) Blood Urea Nitrogen 12 mg/dL (7-20) Creatinine 0.7 mg/dL (0.6-1.0) Estimated GFR (Cockcroft-Gault) 90.9 BUN/Creatinine Ratio 17 (6-20) Glucose Level 80 mg/dL (70-99) Calcium Level 8.7 mg/dL (8.5-10.1) Total Bilirubin 0.3 mg/dL (0.2-1.0) Aspartate Amino Transf (AST/SGOT) 16 U/L (15-37) Alanine Aminotransferase (ALT/SGPT) 21 U/L (14-59) Alkaline Phosphatase 61 U/L (46-116) Total Protein 6.9 g/dL (6.4-8.2) Albumin 3.2 g/dL (3.4-5.0) Albumin/Globulin Ratio 0.9 (1.0-1.7) Assessment and Plan Assessmemt and Plan Problems Medical Problems: (1) Dizziness Status: Acute (2) Headache Status: Acute (3) Palpitations Status: Acute (4) UTI (urinary tract infection) Status: Acute Comment Review of Relevant I have reviewed the following items dakotah (where applicable) has been applied. Labs Laboratory Tests Test 07/03/18 21:10 07/03/18 21:20 07/03/18 22:40 07/04/18 10:50 Urine Collection Type Void Urine Color Yellow Urine Clarity Clear Urine pH 6.0 Urine Specific [place] 1.015 Urine Protein Negative mg/dL (NEG-TRACE) Urine Glucose (UA) Negative mg/dL (NEG) Urine Ketones (Stick) Negative mg/dL (NEG) Urine Blood Trace (NEG) Urine Nitrite Negative (NEG) Urine Bilirubin Negative (NEG) Urine Urobilinogen Dipstick 0.2 mg/dL (0.2 mg/dL) Urine Leukocyte Esterase Small (NEG) Urine RBC 0 /HPF (0-2) Urine WBC >40 /HPF (0-4) Urine Squamous Epithelial Cells Mod /LPF Urine Bacteria Moderate /HPF (0-FEW) Urine Mucus Marked /LPF Bedside Urine HCG, Qualitative Hcg negative (Negative) White Blood Count 11.6 x10^3/uL (4.0-11.0) Red Blood Count 4.65 x10^6/uL (3.50-5.40) Hemoglobin 13.0 g/dL (12.0-15.5) Hematocrit 37.8 % (36.0-47.0) Mean Corpuscular Volume 81 fL (79-100) Mean Corpuscular Hemoglobin 28 pg (25-35) Mean Corpuscular Hemoglobin Concent 34 g/dL (31-37) Red Cell Distribution Width 15.3 % (11.5-14.5) Platelet Count 403 x10^3/uL (140-400) Neutrophils (%) (Auto) 50 % (31-73) Lymphocytes (%) (Auto) 41 % (24-48) Monocytes (%) (Auto) 8 % (0-9) Eosinophils (%) (Auto) 1 % (0-3) Basophils (%) (Auto) 1 % (0-3) Neutrophils # (Auto) 5.7 x10^3uL (1.8-7.7) Lymphocytes # (Auto) 4.7 x10^3/uL (1.0-4.8) Monocytes # (Auto) 0.9 x10^3/uL (0.0-1.1) Eosinophils # (Auto) 0.2 x10^3/uL (0.0-0.7) Basophils # (Auto) 0.1 x10^3/uL (0.0-0.2) Prothrombin Time 13.1 SEC (11.7-14.0) Prothromb Time International Ratio 1.0 (0.8-1.1) Sodium Level 141 mmol/L (136-145) Potassium Level 3.2 mmol/L (3.5-5.1) Chloride Level 105 mmol/L (98-107) Carbon Dioxide Level 27 mmol/L (21-32) Anion Gap 9 (6-14) Blood Urea Nitrogen 12 mg/dL (7-20) Creatinine 0.7 mg/dL (0.6-1.0) Estimated GFR (Cockcroft-Gault) 90.9 BUN/Creatinine Ratio 17 (6-20) Glucose Level 126 mg/dL (70-99) Calcium Level 9.3 mg/dL (8.5-10.1) Magnesium Level 2.1 mg/dL (1.8-2.4) Total Bilirubin 0.2 mg/dL (0.2-1.0) Aspartate Amino Transf (AST/SGOT) 19 U/L (15-37) Alanine Aminotransferase (ALT/SGPT) 23 U/L (14-59) Alkaline Phosphatase 75 U/L (46-116) Creatine Kinase 74 U/L (26-192) Creatine Kinase MB (Mass) 0.7 ng/mL (0.0-3.6) Creatine Kinase MB Relative Index % (0-4) Troponin I Quantitative < 0.017 ng/mL (0.000-0.055) < 0.017 ng/mL (0.000-0.055) CS-Hdm-Q-Type Natriuretic Peptide 125 pg/mL (0-124) Total Protein 7.3 g/dL (6.4-8.2) Albumin 3.5 g/dL (3.4-5.0) Albumin/Globulin Ratio 0.9 (1.0-1.7) Lipase 171 U/L (73-393) Erythrocyte Sedimentation Rate 9 (0-25) Thyroid Stimulating Hormone (TSH) 1.054 uIU/mL (0.358-3.74) Test 07/04/18 14:11 07/04/18 18:30 07/05/18 05:00 Urine Opiates Screen Neg (NEG) Urine Methadone Screen Neg (NEG) Urine Barbiturates Neg (NEG) Urine Phencyclidine Screen Neg (NEG) Urine Amphetamine/Methamphetamine Neg (NEG) Urine Benzodiazepines Screen Neg (NEG) Urine Cocaine Screen Neg (NEG) Urine Cannabinoids Screen Neg (NEG) Urine Ethyl Alcohol Neg (NEG) Troponin I Quantitative < 0.017 ng/mL (0.000-0.055) < 0.017 ng/mL (0.000-0.055) White Blood Count 14.0 x10^3/uL (4.0-11.0) Red Blood Count 4.55 x10^6/uL (3.50-5.40) Hemoglobin 12.5 g/dL (12.0-15.5) Hematocrit 38.0 % (36.0-47.0) Mean Corpuscular Volume 83 fL (79-100) Mean Corpuscular Hemoglobin 27 pg (25-35) Mean Corpuscular Hemoglobin Concent 33 g/dL (31-37) Red Cell Distribution Width 15.7 % (11.5-14.5) Platelet Count 401 x10^3/uL (140-400) Sodium Level 140 mmol/L (136-145) Potassium Level 4.1 mmol/L (3.5-5.1) Chloride Level 106 mmol/L (98-107) Carbon Dioxide Level 21 mmol/L (21-32) Anion Gap 13 (6-14) Blood Urea Nitrogen 12 mg/dL (7-20) Creatinine 0.7 mg/dL (0.6-1.0) Estimated GFR (Cockcroft-Gault) 90.9 BUN/Creatinine Ratio 17 (6-20) Glucose Level 80 mg/dL (70-99) Calcium Level 8.7 mg/dL (8.5-10.1) Total Bilirubin 0.3 mg/dL (0.2-1.0) Aspartate Amino Transf (AST/SGOT) 16 U/L (15-37) Alanine Aminotransferase (ALT/SGPT) 21 U/L (14-59) Alkaline Phosphatase 61 U/L (46-116) Total Protein 6.9 g/dL (6.4-8.2) Albumin 3.2 g/dL (3.4-5.0) Albumin/Globulin Ratio 0.9 (1.0-1.7) Laboratory Tests Test 07/04/18 14:11 07/04/18 18:30 07/05/18 05:00 Urine Opiates Screen Neg (NEG) Urine Methadone Screen Neg (NEG) Urine Barbiturates Neg (NEG) Urine Phencyclidine Screen Neg (NEG) Urine Amphetamine/Methamphetamine Neg (NEG) Urine Benzodiazepines Screen Neg (NEG) Urine Cocaine Screen Neg (NEG) Urine Cannabinoids Screen Neg (NEG) Urine Ethyl Alcohol Neg (NEG) Troponin I Quantitative < 0.017 ng/mL (0.000-0.055) < 0.017 ng/mL (0.000-0.055) White Blood Count 14.0 x10^3/uL (4.0-11.0) Red Blood Count 4.55 x10^6/uL (3.50-5.40) Hemoglobin 12.5 g/dL (12.0-15.5) Hematocrit 38.0 % (36.0-47.0) Mean Corpuscular Volume 83 fL (79-100) Mean Corpuscular Hemoglobin 27 pg (25-35) Mean Corpuscular Hemoglobin Concent 33 g/dL (31-37) Red Cell Distribution Width 15.7 % (11.5-14.5) Platelet Count 401 x10^3/uL (140-400) Sodium Level 140 mmol/L (136-145) Potassium Level 4.1 mmol/L (3.5-5.1) Chloride Level 106 mmol/L (98-107) Carbon Dioxide Level 21 mmol/L (21-32) Anion Gap 13 (6-14) Blood Urea Nitrogen 12 mg/dL (7-20) Creatinine 0.7 mg/dL (0.6-1.0) Estimated GFR (Cockcroft-Gault) 90.9 BUN/Creatinine Ratio 17 (6-20) Glucose Level 80 mg/dL (70-99) Calcium Level 8.7 mg/dL (8.5-10.1) Total Bilirubin 0.3 mg/dL (0.2-1.0) Aspartate Amino Transf (AST/SGOT) 16 U/L (15-37) Alanine Aminotransferase (ALT/SGPT) 21 U/L (14-59) Alkaline Phosphatase 61 U/L (46-116) Total Protein 6.9 g/dL (6.4-8.2) Albumin 3.2 g/dL (3.4-5.0) Albumin/Globulin Ratio 0.9 (1.0-1.7) Medications Current Medications Aspirin (Children'S Aspirin) 324 mg 1X ONCE PO Last administered on 07/03/18at 23:28; Start 07/03/18 at 22:00; Stop 07/03/18 at 22:01; Status DC Sodium Chloride 1,000 ml @ 1,000 mls/hr 1X ONCE IV Last administered on at 23:28; Start 07/03/18 at 22:00; Stop 07/03/18 at 22:59; Status DC Ceftriaxone Sodium 50 ml @ 100 mls/hr 1X ONCE IV Last administered on at 23:28; Start 07/03/18 at 23:00; Stop 07/03/18 at 23:29; Status DC Dexamethasone Sodium Phosphate (Decadron) 10 mg 1X ONCE IV Last administered on 07/04/18at 00:22; Start 07/04/18 at 00:00; Stop 07/04/18 at 00:01; Status DC Ketorolac Tromethamine (Toradol 30mg Vial) 30 mg 1X ONCE IV Last administered on 07/04/18at 00:23; Start 07/04/18 at 00:00; Stop 07/04/18 at 00:01; Status DC Metoclopramide HCl (Reglan Vial) 10 mg 1X ONCE IV Last administered on at 00:22; Start 07/04/18 at 00:00; Stop 07/04/18 at 00:01; Status DC Diphenhydramine HCl (Benadryl) 50 mg 1X ONCE IVP Last administered on at 00:24; Start 07/04/18 at 00:00; Stop 07/04/18 at 00:01; Status DC Ondansetron HCl (Zofran) 4 mg PRN Q8HRS PRN IV NAUSEA/VOMITING 1ST CHOICE; Start 07/04/18 at 00:00; Stop 07/04/18 at 23:59; Status DC Acetaminophen (Tylenol) 650 mg PRN Q4HRS PRN PO FEVER; Start 07/04/18 at 00:00 ; Stop 07/04/18 at 23:59; Status DC Potassium Chloride (Klor-Con) 40 meq 1X ONCE PO Last administered on at 10:44; Start 07/04/18 at 10:30; Stop 07/04/18 at 10:31; Status DC Ketorolac Tromethamine (Toradol 30mg Vial) 30 mg PRN Q6HRS PRN IV PAIN Last administered on 07/05/18at 02:47; Start 07/04/18 at 10:15; Stop 07/09/18 at 10:14 Pantoprazole Sodium (Protonix) 40 mg DAILYAC PO Last administered on 07/05/18at 09:29; Start 07/04/18 at 14:30 Clonazepam (KlonoPIN) 0.5 mg BID PO Last administered on 07/05/18at 09:28; Start 07/04/18 at 15:00 Duloxetine HCl (Cymbalta) 30 mg DAILY PO Last administered on 07/05/18 09:28; Start 07/04/18 at 15:00 Meclizine HCl (Antivert) 12.5 mg TID PO Last administered on 07/05/18at 09:29; Start 07/04/18 at 15:30 Meclizine HCl (Antivert) 12.5 mg 1X ONCE PO ; Start 07/04/18 at 15:15; Stop at 15:16; Status UNV Active Scripts Active Reported Multivitamins (Multivitamin) 1 Each Tablet 1 Each PO DAILY Vitamin D3 (Cholecalciferol (Vitamin D3)) 1,000 Unit Tablet 1,000 Unit PO DAILY Omeprazole 20 Mg Tablet.dr 20 Mg PO DAILY Vitals/I & O Vital Sign - Last 24 Hours 07/04/18 07/04/18 07/04/18 07/04/18 14:46 19:10 19:53 23:36 Temp 98.0 98.1 97.9 98.0 98.1 97.9 Pulse 53 65 45 Resp 17 16 16 B/P (MAP) 112/63 (79) 102/58 (73) 104/59 (74) Pulse Ox 96 100 95 O2 Delivery Room Air Room Air Room Air Room Air 07/05/18 07/05/18 07/05/18 03:48 07:30 10:47 Temp 98.0 97.9 97.8 98.0 97.9 97.8 Pulse 61 46 50 Resp 16 17 16 B/P (MAP) 106/52 (70) 97/59 (72) 101/60 (74) Pulse Ox 97 99 97 O2 Delivery Room Air Room Air Room Air Intake and Output 07/04/18 07/04/18 07/05/18 15:01 23:01 07:01 Intake Total 440 ml 500 ml Balance 440 ml 500 ml HIRO APODACA MD Jul 05, 2018 12:56
[2018-07-05 14:58] VITALS: BP 114/57
--- NOTE | 2018-07-05 15:00 | PDOC ---
G I PROGRESS NOTE Reason for Follow-up abd pain/nausea/abnl US Subjective Pain persists- worse with meals Physical Exam Lungs clear CV S1 S2 ABD +BS, +epigastric tenderness to palpation Review of Relevant I have reviewed the following items dakotah (where applicable) has been applied. Labs Laboratory Tests Test 07/03/18 21:10 07/03/18 21:20 07/03/18 22:40 07/04/18 10:50 Urine Collection Type Void Urine Color Yellow Urine Clarity Clear Urine pH 6.0 Urine Specific [place] 1.015 Urine Protein Negative mg/dL (NEG-TRACE) Urine Glucose (UA) Negative mg/dL (NEG) Urine Ketones (Stick) Negative mg/dL (NEG) Urine Blood Trace (NEG) Urine Nitrite Negative (NEG) Urine Bilirubin Negative (NEG) Urine Urobilinogen Dipstick 0.2 mg/dL (0.2 mg/dL) Urine Leukocyte Esterase Small (NEG) Urine RBC 0 /HPF (0-2) Urine WBC >40 /HPF (0-4) Urine Squamous Epithelial Cells Mod /LPF Urine Bacteria Moderate /HPF (0-FEW) Urine Mucus Marked /LPF Bedside Urine HCG, Qualitative Hcg negative (Negative) White Blood Count 11.6 x10^3/uL (4.0-11.0) Red Blood Count 4.65 x10^6/uL (3.50-5.40) Hemoglobin 13.0 g/dL (12.0-15.5) Hematocrit 37.8 % (36.0-47.0) Mean Corpuscular Volume 81 fL (79-100) Mean Corpuscular Hemoglobin 28 pg (25-35) Mean Corpuscular Hemoglobin Concent 34 g/dL (31-37) Red Cell Distribution Width 15.3 % (11.5-14.5) Platelet Count 403 x10^3/uL (140-400) Neutrophils (%) (Auto) 50 % (31-73) Lymphocytes (%) (Auto) 41 % (24-48) Monocytes (%) (Auto) 8 % (0-9) Eosinophils (%) (Auto) 1 % (0-3) Basophils (%) (Auto) 1 % (0-3) Neutrophils # (Auto) 5.7 x10^3uL (1.8-7.7) Lymphocytes # (Auto) 4.7 x10^3/uL (1.0-4.8) Monocytes # (Auto) 0.9 x10^3/uL (0.0-1.1) Eosinophils # (Auto) 0.2 x10^3/uL (0.0-0.7) Basophils # (Auto) 0.1 x10^3/uL (0.0-0.2) Prothrombin Time 13.1 SEC (11.7-14.0) Prothromb Time International Ratio 1.0 (0.8-1.1) Sodium Level 141 mmol/L (136-145) Potassium Level 3.2 mmol/L (3.5-5.1) Chloride Level 105 mmol/L (98-107) Carbon Dioxide Level 27 mmol/L (21-32) Anion Gap 9 (6-14) Blood Urea Nitrogen 12 mg/dL (7-20) Creatinine 0.7 mg/dL (0.6-1.0) Estimated GFR (Cockcroft-Gault) 90.9 BUN/Creatinine Ratio 17 (6-20) Glucose Level 126 mg/dL (70-99) Calcium Level 9.3 mg/dL (8.5-10.1) Magnesium Level 2.1 mg/dL (1.8-2.4) Total Bilirubin 0.2 mg/dL (0.2-1.0) Aspartate Amino Transf (AST/SGOT) 19 U/L (15-37) Alanine Aminotransferase (ALT/SGPT) 23 U/L (14-59) Alkaline Phosphatase 75 U/L (46-116) Creatine Kinase 74 U/L (26-192) Creatine Kinase MB (Mass) 0.7 ng/mL (0.0-3.6) Creatine Kinase MB Relative Index % (0-4) Troponin I Quantitative < 0.017 ng/mL (0.000-0.055) < 0.017 ng/mL (0.000-0.055) GM-Vks-R-Type Natriuretic Peptide 125 pg/mL (0-124) Total Protein 7.3 g/dL (6.4-8.2) Albumin 3.5 g/dL (3.4-5.0) Albumin/Globulin Ratio 0.9 (1.0-1.7) Lipase 171 U/L (73-393) Erythrocyte Sedimentation Rate 9 (0-25) Thyroid Stimulating Hormone (TSH) 1.054 uIU/mL (0.358-3.74) Test 07/04/18 14:11 07/04/18 18:30 07/05/18 05:00 Urine Opiates Screen Neg (NEG) Urine Methadone Screen Neg (NEG) Urine Barbiturates Neg (NEG) Urine Phencyclidine Screen Neg (NEG) Urine Amphetamine/Methamphetamine Neg (NEG) Urine Benzodiazepines Screen Neg (NEG) Urine Cocaine Screen Neg (NEG) Urine Cannabinoids Screen Neg (NEG) Urine Ethyl Alcohol Neg (NEG) Troponin I Quantitative < 0.017 ng/mL (0.000-0.055) < 0.017 ng/mL (0.000-0.055) White Blood Count 14.0 x10^3/uL (4.0-11.0) Red Blood Count 4.55 x10^6/uL (3.50-5.40) Hemoglobin 12.5 g/dL (12.0-15.5) Hematocrit 38.0 % (36.0-47.0) Mean Corpuscular Volume 83 fL (79-100) Mean Corpuscular Hemoglobin 27 pg (25-35) Mean Corpuscular Hemoglobin Concent 33 g/dL (31-37) Red Cell Distribution Width 15.7 % (11.5-14.5) Platelet Count 401 x10^3/uL (140-400) Sodium Level 140 mmol/L (136-145) Potassium Level 4.1 mmol/L (3.5-5.1) Chloride Level 106 mmol/L (98-107) Carbon Dioxide Level 21 mmol/L (21-32) Anion Gap 13 (6-14) Blood Urea Nitrogen 12 mg/dL (7-20) Creatinine 0.7 mg/dL (0.6-1.0) Estimated GFR (Cockcroft-Gault) 90.9 BUN/Creatinine Ratio 17 (6-20) Glucose Level 80 mg/dL (70-99) Calcium Level 8.7 mg/dL (8.5-10.1) Magnesium Level 2.1 mg/dL (1.8-2.4) Total Bilirubin 0.3 mg/dL (0.2-1.0) Aspartate Amino Transf (AST/SGOT) 16 U/L (15-37) Alanine Aminotransferase (ALT/SGPT) 21 U/L (14-59) Alkaline Phosphatase 61 U/L (46-116) Total Protein 6.9 g/dL (6.4-8.2) Albumin 3.2 g/dL (3.4-5.0) Albumin/Globulin Ratio 0.9 (1.0-1.7) Laboratory Tests Test 07/04/18 18:30 07/05/18 05:00 Troponin I Quantitative < 0.017 ng/mL (0.000-0.055) < 0.017 ng/mL (0.000-0.055) White Blood Count 14.0 x10^3/uL (4.0-11.0) Red Blood Count 4.55 x10^6/uL (3.50-5.40) Hemoglobin 12.5 g/dL (12.0-15.5) Hematocrit 38.0 % (36.0-47.0) Mean Corpuscular Volume 83 fL (79-100) Mean Corpuscular Hemoglobin 27 pg (25-35) Mean Corpuscular Hemoglobin Concent 33 g/dL (31-37) Red Cell Distribution Width 15.7 % (11.5-14.5) Platelet Count 401 x10^3/uL (140-400) Sodium Level 140 mmol/L (136-145) Potassium Level 4.1 mmol/L (3.5-5.1) Chloride Level 106 mmol/L (98-107) Carbon Dioxide Level 21 mmol/L (21-32) Anion Gap 13 (6-14) Blood Urea Nitrogen 12 mg/dL (7-20) Creatinine 0.7 mg/dL (0.6-1.0) Estimated GFR (Cockcroft-Gault) 90.9 BUN/Creatinine Ratio 17 (6-20) Glucose Level 80 mg/dL (70-99) Calcium Level 8.7 mg/dL (8.5-10.1) Magnesium Level 2.1 mg/dL (1.8-2.4) Total Bilirubin 0.3 mg/dL (0.2-1.0) Aspartate Amino Transf (AST/SGOT) 16 U/L (15-37) Alanine Aminotransferase (ALT/SGPT) 21 U/L (14-59) Alkaline Phosphatase 61 U/L (46-116) Total Protein 6.9 g/dL (6.4-8.2) Albumin 3.2 g/dL (3.4-5.0) Albumin/Globulin Ratio 0.9 (1.0-1.7) Medications Current Medications Aspirin (Children'S Aspirin) 324 mg 1X ONCE PO Last administered on 07/03/18at 23:28; Start 07/03/18 at 22:00; Stop 07/03/18 at 22:01; Status DC Sodium Chloride 1,000 ml @ 1,000 mls/hr 1X ONCE IV Last administered on at 23:28; Start 07/03/18 at 22:00; Stop 07/03/18 at 22:59; Status DC Ceftriaxone Sodium 50 ml @ 100 mls/hr 1X ONCE IV Last administered on at 23:28; Start 07/03/18 at 23:00; Stop 07/03/18 at 23:29; Status DC Dexamethasone Sodium Phosphate (Decadron) 10 mg 1X ONCE IV Last administered on 07/04/18at 00:22; Start 07/04/18 at 00:00; Stop 07/04/18 at 00:01; Status DC Ketorolac Tromethamine (Toradol 30mg Vial) 30 mg 1X ONCE IV Last administered on 07/04/18at 00:23; Start 07/04/18 at 00:00; Stop 07/04/18 at 00:01; Status DC Metoclopramide HCl (Reglan Vial) 10 mg 1X ONCE IV Last administered on at 00:22; Start 07/04/18 at 00:00; Stop 07/04/18 at 00:01; Status DC Diphenhydramine HCl (Benadryl) 50 mg 1X ONCE IVP Last administered on at 00:24; Start 07/04/18 at 00:00; Stop 07/04/18 at 00:01; Status DC Ondansetron HCl (Zofran) 4 mg PRN Q8HRS PRN IV NAUSEA/VOMITING 1ST CHOICE; Start 07/04/18 at 00:00; Stop 07/04/18 at 23:59; Status DC Acetaminophen (Tylenol) 650 mg PRN Q4HRS PRN PO FEVER; Start 07/04/18 at 00:00 ; Stop 07/04/18 at 23:59; Status DC Potassium Chloride (Klor-Con) 40 meq 1X ONCE PO Last administered on at 10:44; Start 07/04/18 at 10:30; Stop 07/04/18 at 10:31; Status DC Ketorolac Tromethamine (Toradol 30mg Vial) 30 mg PRN Q6HRS PRN IV PAIN Last administered on 07/05/18 02:47; Start 07/04/18 at 10:15; Stop 07/09/18 at 10:14 Pantoprazole Sodium (Protonix) 40 mg DAILYAC PO Last administered on 07/05/18 09:29; Start 07/04/18 at 14:30 Clonazepam (KlonoPIN) 0.5 mg BID PO Last administered on 07/05/18 09:28; Start 07/04/18 at 15:00 Duloxetine HCl (Cymbalta) 30 mg DAILY PO Last administered on 07/05/18 09:28; Start 07/04/18 at 15:00 Meclizine HCl (Antivert) 12.5 mg TID PO Last administered on 07/05/18at 09:29; Start 07/04/18 at 15:30 Meclizine HCl (Antivert) 12.5 mg 1X ONCE PO ; Start 07/04/18 at 15:15; Stop at 15:16; Status UNV Active Scripts Active Reported Multivitamins (Multivitamin) 1 Each Tablet 1 Each PO DAILY Vitamin D3 (Cholecalciferol (Vitamin D3)) 1,000 Unit Tablet 1,000 Unit PO DAILY Omeprazole 20 Mg Tablet.dr 20 Mg PO DAILY Vitals/I & O Vital Sign - Last 24 Hours 07/04/18 07/04/18 07/04/18 07/05/18 19:10 19:53 23:36 03:48 Temp 98.1 97.9 98.0 98.1 97.9 98.0 Pulse 65 45 61 Resp 16 16 16 B/P (MAP) 102/58 (73) 104/59 (74) 106/52 (70) Pulse Ox 100 95 97 O2 Delivery Room Air Room Air Room Air Room Air 07/05/18 07/05/18 07:30 10:47 Temp 97.9 97.8 97.9 97.8 Pulse 46 50 Resp 17 16 B/P (MAP) 97/59 (72) 101/60 (74) Pulse Ox 99 97 O2 Delivery Room Air Room Air Intake and Output 07/04/18 07/04/18 07/05/18 15:00 23:00 07:00 Intake Total 440 ml 500 ml Balance 440 ml 500 ml Problem List Problems Medical Problems: (1) Dizziness Status: Acute (2) Headache Status: Acute (3) Palpitations Status: Acute (4) UTI (urinary tract infection) Status: Acute Assessment abd pain- most likely chroinc cholecystitis, PUD, GERD, and/or gastroapresis possible as well Plan await SABINA ALONSO aic AMAN QUAN MD Jul 05, 2018 15:00
--- NOTE | 2018-07-05 15:49 | PDOC ---
PROGRESS NOTES Assessment Assessment Dizziness and light headiness for 2 weeks. Vertigo x 2 weeks. BPPV likely. Headache. Orthostatic hypotension, intermittent. UTI. DM. Hypokalemia. Anxiety. Obesity. RECOMMENDATIONS/PLAN: Meclizine 12.5 mg tid. Treat medical diseases. OT/PT. Brain MRI as outpatient if not improving. HCT: negative. Carotid A US + Doppler: Normal study. HISTORY OF THE PRESENT ILLNESS: 43-y-old [place] origin female patient has been having symptoms of dizziness, vertigo, light headiness for about 2 weeks to come to the ER of [facility]. She was eventually admitted for further evaluation. She stated her symptoms were better in lying position, but worse in standing position and walking. No cranial, sensory or motor deficits. PAST MEDICAL HISTORY: Please see above. PAST SURGERY HISTORY: No major surgery recently. ALLERGY: NKDA MEDICATIONS: Refer to [facility] HISTORY: Non contributory. SOCIAL HISTORY: Lives at home. Denies smoking, drinking, and illicit drug use. REVIEW OF SYSTEMS: Constitutional:Obesity. Head: No traumatic brain or head injury. Skin: No edema, or rash. Ear: No infection. Eyes: No vision loss or color blindness. Nose: No bleeding or purulent discharges. Hearing: No hearing decrease. Neck: No injury. Breast: No history of cancer, masses,or discharges. Cardiac: No WI, arrhythmia. Pulmonary: No pneumonia, COPD. GI: No GI ulcer, GI bleeding. Urinary/genital: UTI. Endocrinologic: Diabetes Mellitus ? Skeletomuscular: No muscular atrophy, deformity. Neurological: see HP. Psychiatric: Denies drug use/abuse. Otherwise, not [id number] review of systems. PHYSICAL EXAMINATION: General appearance is in subacute distress. HEENT: Normocephalic and nontraumatic. Eyes, nose, ears, and throat are unremarkable. Neck is supple. No lymphadenopathy. No bruits are heard over the carotid artery. No crepitus. Cardiovascular: S1, S2, regular rate and rhythm. Pulmonary: Clear to auscultation bilaterally. Abdomen: Bowel sounds are positive. Abdomen is soft, nontender, and nondistended. Extremities: No rash, lesions, or edema. No restriction of range of motion NEUROLOGICAL EXAMINATION: Alert Oriented to time, place and person. PERRL. EOMI. CN: no focal findings. Muscle tone: within normal. Muscle strength: 5 DTR: 2 Plantar reflex: Flexor response bilaterally Gait: Normal. Sensory exam: no abnormal findings. No cerebellar signs elicited. F-T-N test accurate. Objective Objective Vital Signs Date Time Temp Pulse Resp B/P (MAP) Pulse Ox O2 Delivery O2 Flow Rate FiO2 07/05/18 14:58 97.7 54 17 114/57 (76) 99 Room Air 97.7 Intake and Output 07/05/18 07:00 Intake Total 940 ml Balance 940 ml Intake Oral 940 ml # Voids 5 Vitals Signs Vitals VS - Last 72 Hours, by Label Date Time Temp Pulse Resp B/P (MAP) Pulse Ox O2 Delivery O2 Flow Rate FiO2 07/05/18 14:58 97.7 54 17 114/57 (76) 99 Room Air 97.7 07/05/18 10:47 97.8 50 16 101/60 (74) 97 Room Air 97.8 07/05/18 08:00 Room Air 07/05/18 07:30 97.9 46 17 97/59 (72) 99 Room Air 97.9 07/05/18 03:48 98.0 61 16 106/52 (70) 97 Room Air 98.0 07/04/18 23:36 97.9 45 16 104/59 (74) 95 Room Air 97.9 07/04/18 19:53 98.1 65 16 102/58 (73) 100 Room Air 98.1 07/04/18 19:10 Room Air 07/04/18 14:46 98.0 53 17 112/63 (79) 96 Room Air 98.0 07/04/18 10:32 56 110/64 (79) 98 Room Air 07/04/18 10:29 58 111/65 (80) 98 Room Air 07/04/18 10:25 97.5 57 17 101/58 (72) 98 Room Air 97.5 07/04/18 08:00 Room Air 07/04/18 07:35 97.7 55 17 95/46 (62) 98 Room Air 97.7 Laboratory Laboratory Laboratory Tests Test 07/04/18 18:30 07/05/18 05:00 Troponin I Quantitative < 0.017 ng/mL (0.000-0.055) < 0.017 ng/mL (0.000-0.055) White Blood Count 14.0 x10^3/uL (4.0-11.0) Red Blood Count 4.55 x10^6/uL (3.50-5.40) Hemoglobin 12.5 g/dL (12.0-15.5) Hematocrit 38.0 % (36.0-47.0) Mean Corpuscular Volume 83 fL (79-100) Mean Corpuscular Hemoglobin 27 pg (25-35) Mean Corpuscular Hemoglobin Concent 33 g/dL (31-37) Red Cell Distribution Width 15.7 % (11.5-14.5) Platelet Count 401 x10^3/uL (140-400) Sodium Level 140 mmol/L (136-145) Potassium Level 4.1 mmol/L (3.5-5.1) Chloride Level 106 mmol/L (98-107) Carbon Dioxide Level 21 mmol/L (21-32) Anion Gap 13 (6-14) Blood Urea Nitrogen 12 mg/dL (7-20) Creatinine 0.7 mg/dL (0.6-1.0) Estimated GFR (Cockcroft-Gault) 90.9 BUN/Creatinine Ratio 17 (6-20) Glucose Level 80 mg/dL (70-99) Calcium Level 8.7 mg/dL (8.5-10.1) Magnesium Level 2.1 mg/dL (1.8-2.4) Total Bilirubin 0.3 mg/dL (0.2-1.0) Aspartate Amino Transf (AST/SGOT) 16 U/L (15-37) Alanine Aminotransferase (ALT/SGPT) 21 U/L (14-59) Alkaline Phosphatase 61 U/L (46-116) Total Protein 6.9 g/dL (6.4-8.2) Albumin 3.2 g/dL (3.4-5.0) Albumin/Globulin Ratio 0.9 (1.0-1.7) Comment Review of Relevant I have reviewed the following items dakotah (where applicable) has been applied. NICKY ESPARZA MD Jul 05, 2018 15:49
--- NOTE | 2018-07-05 16:30 | CARD ---
MR#: [id number] Date of Study: 07/05/2018 Ordering Physician: KENDELL WELDON, Referring Physician: ROSALINO BASSETT Tech: Ayesha Mello [facility] APPROVED REPORT EXAM: Two-dimensional and M-mode echocardiogram with Doppler and color Doppler. Other Information Quality : GoodHR: 47bpm INDICATION Palpitations 2D DIMENSIONS Left Atrium(2D)3.8 (1.6-4.0cm)IVSd0.5 (0.7-1.1cm) Aortic Root(2D)2.4 (2.0-3.7cm)LVDd4.5 (3.9-5.9cm) LVOT Diameter2.8 (1.8-2.4cm)PWd0.6 (0.7-1.1cm) LVDs2.7 (2.5-4.0cm)FS (%) 40.1 % SV67.1 mlLVEF(%)70.9 (>50%) CO3.1 L/min M-Mode DIMENSIONS Aortic Cusp Exc1.90 (1.5-2.0cm) Aortic Valve AoV Peak Antony.114.2cm/sAoV VTI26.2cm AO Peak GR.5.2mmHgLVOT VTI 19.66cm AO Mean GR.3mmHg Mitral Valve MV E Cdvhhshe03.4cm/sMV DECEL [id number] MV A Naximwiy00.3cm/sE/A Ratio1.6 MV A [id number] TDI Lateral E' P. V13.23cm/sMedial E' P. V9.60cm/s E/Lateral E'6.8E/Medial E'9.3 Pulmonary Valve PV Peak Snsksvqd23.6cm/s Tricuspid Valve TR P. Zmpmnckp881wg/sTR Peak Gr.27mmHg Pulmonary Vein S1 Utcdgxfm04.0cm/sS2 Nshicdtn35.34cm/s D2 Eurpaotc63.3cm/s LEFT VENTRICLE The left ventricle is normal size. There is normal left ventricular wall thickness. The left ventricu lar systolic function is normal. The ejection fraction is estimated at 60%. There is normal LV segmen pepito wall motion. The left ventricular diastolic function and filling is normal for age. No left ventr icle thrombus noted on this study. There is no ventricular septal defect visualized. There is no left ventricular aneurysm. There is no mass noted in the left ventricle. RIGHT VENTRICLE The right ventricle is normal size. There is normal right ventricular wall thickness. The right ventr icular systolic function is normal. ATRIA The left atrium size is normal. The right atrium size is normal. The interatrial septum is intact wit h no evidence for an atrial septal defect or patent foramen ovale as noted on 2-D or Doppler imaging. AORTIC VALVE The aortic valve is normal in structure and function. Doppler and Color Flow revealed trace aortic re gurgitation. There is no significant aortic valvular stenosis. There is no aortic valvular vegetation . MITRAL VALVE The mitral valve is normal in structure and function. There is no evidence of mitral valve prolapse. There is no mitral valve stenosis. Doppler and Color-flow revealed mild mitral regurgitation. TRICUSPID VALVE The tricuspid valve is normal in structure and function. Doppler and Color Flow revealed mild tricusp id regurgitation. There is no tricuspid valve prolapse or vegetation. There is no tricuspid valve salima nosis. PULMONIC VALVE The pulmonary valve is normal in structure and function. Doppler and Color Flow revealed trace pulmon ic valvular regurgitation. There is no pulmonic valvular stenosis. GREAT VESSELS The aortic root is normal in size. The ascending aorta is normal in size. PERICARDIAL EFFUSION There is no evidence of significant pericardial effusion. Critical Notification Critical Value: No <Conclusion> The left ventricular systolic function is normal. The ejection fraction is estimated at 60%. There is normal LV segmental wall motion. Mild mitral regurgitation. Mild tricuspid regurgitation. There is no evidence of significant pericardial effusion. Signed by : Lito Amor, Electronically Approved : 07/05/2018 16:28:10
[2018-07-05 19:50] VITALS: BP 105/63
[2018-07-05 23:45] VITALS: BP 101/45
[2018-07-06 03:45] VITALS: BP 91/43
[2018-07-06 05:31] LABS: HEMATOCRIT 38.6 % (36.0-47.0); HEMOGLOBIN 13.1 g/dL (12.0-15.5); RED BLOOD COUNT 4.71 x10^6/uL (3.50-5.40); RED CELL DISTRIBUTION WIDTH 15.3 % (11.5-14.5); WHITE BLOOD COUNT 10.5 x10^3/uL (4.0-11.0)
[2018-07-06 05:59] LABS: ALBUMIN 3.1 g/dL (3.4-5.0); ALBUMIN/GLOBULIN RATIO 0.8 (1.0-1.7); CALCIUM 8.6 mg/dL (8.5-10.1); CREATININE 0.7 mg/dL (0.6-1.0); GFR 90.9; POTASSIUM 3.7 mmol/L (3.5-5.1); TOTAL BILIRUBIN 0.4 mg/dL (0.2-1.0); TOTAL PROTEIN 6.8 g/dL (6.4-8.2)
[2018-07-06 07:05] VITALS: BP 108/43
[2018-07-06] MEDS: DULoxetine HCL 30 MG CAPSULE.DR PO SCH (10:25)
[2018-07-06] MEDS: clonazePAM 0.5 MG TABLET PO SCH ×2 (10:25→21:08)
[2018-07-06] MEDS: PANTOPRAZOLE 40 MG TABLET.DR. PO SCH (10:25)
[2018-07-06] MEDS: MECLIZINE HCL 12.5 MG TABLET. PO SCH ×3 (10:25→21:08)
--- NOTE | 2018-07-06 10:40 | PDOC ---
PROGRESS NOTES Chief Complaint Chief Complaint 1-chest pain , enzymes neg, echo normal likely not cardiac 2-headache and dizziness, seen by neuro 3-epigastric pain and GERD even on PPI , will consult GI 4-obesity 5- hypotension with episodes of flushing will check 24 h urine for 5HIAA to R/ O carcinoid 7-bradycardia , TSH normal 8- anxiety and depression started Cymbalta and clonazepam plan ct abd and pelvis History of Present Illness History of Present Illness enzyme negative, echo ok , continue to have epigastric pain , abd US with thickening gallbladder wall, no stones PIPIDA scan, today agrees that she is nervous and depressed Vitals Vitals Vital Signs Date Time Temp Pulse Resp B/P (MAP) Pulse Ox O2 Delivery O2 Flow Rate FiO2 07/06/18 07:05 98.0 63 18 108/43 (64) 97 Room Air 98.0 Physical Exam General: Alert, Oriented X3, Cooperative, mild distress Heart: Regular rate, Normal S1, Normal S2 Lungs: Clear Abdomen: Normal bowel sounds, Soft, Other (bowel sounds are present. Mild tenderness over the epigastrium and left side of the abdomen) Extremities: No cyanosis, No edema, Normal pulses Skin: No rashes, No breakdown Labs LABS Abdominal ultrasound complete: Reason for examination: Bilateral upper quadrant pain for 2 weeks. Patient states the pain is worse on the left side. Pancreas is poorly visualized. The liver is normal in size at 13.9 cm but shows some fatty infiltration. The gallbladder wall is thickened at 3.5 mm but no cholelithiasis or sludge is seen. Common bile duct is normal in caliber at 3.4 mm. The spleen is normal in size at 8.5 cm in greatest dimension without a focal lesion. No abnormality seen at the visualized portions of inferior vena cava and the aorta is poorly visualized. The right kidney measures 10.5 x 4.7 x 4.8 cm in greatest dimension and shows normal cortical medullary differentiation with no mass or hydronephrosis. The left kidney measures 10.3 x 6.6 x 6.2 cm in greatest dimension and shows normal cortical medullary differentiation with no mass or hydronephrosis. IMPRESSION: Fatty infiltration in the liver. Gallbladder wall is thickened at 3.5 mm but no cholelithiasis or sludge is present. Electronically signed by: Valentina Canela MD (07/05/2018 8:51 AM) [facility] Laboratory Tests Test 07/06/18 04:00 White Blood Count 10.5 x10^3/uL (4.0-11.0) Red Blood Count 4.71 x10^6/uL (3.50-5.40) Hemoglobin 13.1 g/dL (12.0-15.5) Hematocrit 38.6 % (36.0-47.0) Mean Corpuscular Volume 82 fL (79-100) Mean Corpuscular Hemoglobin 28 pg (25-35) Mean Corpuscular Hemoglobin Concent 34 g/dL (31-37) Red Cell Distribution Width 15.3 % (11.5-14.5) Platelet Count 378 x10^3/uL (140-400) Sodium Level 141 mmol/L (136-145) Potassium Level 3.7 mmol/L (3.5-5.1) Chloride Level 105 mmol/L (98-107) Carbon Dioxide Level 27 mmol/L (21-32) Anion Gap 9 (6-14) Blood Urea Nitrogen 13 mg/dL (7-20) Creatinine 0.7 mg/dL (0.6-1.0) Estimated GFR (Cockcroft-Gault) 90.9 BUN/Creatinine Ratio 19 (6-20) Glucose Level 85 mg/dL (70-99) Calcium Level 8.6 mg/dL (8.5-10.1) Total Bilirubin 0.4 mg/dL (0.2-1.0) Aspartate Amino Transf (AST/SGOT) 17 U/L (15-37) Alanine Aminotransferase (ALT/SGPT) 24 U/L (14-59) Alkaline Phosphatase 56 U/L (46-116) Total Protein 6.8 g/dL (6.4-8.2) Albumin 3.1 g/dL (3.4-5.0) Albumin/Globulin Ratio 0.8 (1.0-1.7) Assessment and Plan Assessmemt and Plan Problems Medical Problems: (1) Dizziness Status: Acute (2) Headache Status: Acute (3) Palpitations Status: Acute (4) UTI (urinary tract infection) Status: Acute Comment Review of Relevant I have reviewed the following items dakotah (where applicable) has been applied. Labs Laboratory Tests Test 07/04/18 10:50 07/04/18 14:11 07/04/18 18:30 07/05/18 05:00 Erythrocyte Sedimentation Rate 9 (0-25) Troponin I Quantitative < 0.017 ng/mL (0.000-0.055) < 0.017 ng/mL (0.000-0.055) < 0.017 ng/mL (0.000-0.055) Thyroid Stimulating Hormone (TSH) 1.054 uIU/mL (0.358-3.74) Urine Opiates Screen Neg (NEG) Urine Methadone Screen Neg (NEG) Urine Barbiturates Neg (NEG) Urine Phencyclidine Screen Neg (NEG) Urine Amphetamine/Methamphetamine Neg (NEG) Urine Benzodiazepines Screen Neg (NEG) Urine Cocaine Screen Neg (NEG) Urine Cannabinoids Screen Neg (NEG) Urine Ethyl Alcohol Neg (NEG) White Blood Count 14.0 x10^3/uL (4.0-11.0) Red Blood Count 4.55 x10^6/uL (3.50-5.40) Hemoglobin 12.5 g/dL (12.0-15.5) Hematocrit 38.0 % (36.0-47.0) Mean Corpuscular Volume 83 fL (79-100) Mean Corpuscular Hemoglobin 27 pg (25-35) Mean Corpuscular Hemoglobin Concent 33 g/dL (31-37) Red Cell Distribution Width 15.7 % (11.5-14.5) Platelet Count 401 x10^3/uL (140-400) Sodium Level 140 mmol/L (136-145) Potassium Level 4.1 mmol/L (3.5-5.1) Chloride Level 106 mmol/L (98-107) Carbon Dioxide Level 21 mmol/L (21-32) Anion Gap 13 (6-14) Blood Urea Nitrogen 12 mg/dL (7-20) Creatinine 0.7 mg/dL (0.6-1.0) Estimated GFR (Cockcroft-Gault) 90.9 BUN/Creatinine Ratio 17 (6-20) Glucose Level 80 mg/dL (70-99) Calcium Level 8.7 mg/dL (8.5-10.1) Magnesium Level 2.1 mg/dL (1.8-2.4) Total Bilirubin 0.3 mg/dL (0.2-1.0) Aspartate Amino Transf (AST/SGOT) 16 U/L (15-37) Alanine Aminotransferase (ALT/SGPT) 21 U/L (14-59) Alkaline Phosphatase 61 U/L (46-116) Total Protein 6.9 g/dL (6.4-8.2) Albumin 3.2 g/dL (3.4-5.0) Albumin/Globulin Ratio 0.9 (1.0-1.7) Test 07/06/18 04:00 White Blood Count 10.5 x10^3/uL (4.0-11.0) Red Blood Count 4.71 x10^6/uL (3.50-5.40) Hemoglobin 13.1 g/dL (12.0-15.5) Hematocrit 38.6 % (36.0-47.0) Mean Corpuscular Volume 82 fL (79-100) Mean Corpuscular Hemoglobin 28 pg (25-35) Mean Corpuscular Hemoglobin Concent 34 g/dL (31-37) Red Cell Distribution Width 15.3 % (11.5-14.5) Platelet Count 378 x10^3/uL (140-400) Sodium Level 141 mmol/L (136-145) Potassium Level 3.7 mmol/L (3.5-5.1) Chloride Level 105 mmol/L (98-107) Carbon Dioxide Level 27 mmol/L (21-32) Anion Gap 9 (6-14) Blood Urea Nitrogen 13 mg/dL (7-20) Creatinine 0.7 mg/dL (0.6-1.0) Estimated GFR (Cockcroft-Gault) 90.9 BUN/Creatinine Ratio 19 (6-20) Glucose Level 85 mg/dL (70-99) Calcium Level 8.6 mg/dL (8.5-10.1) Total Bilirubin 0.4 mg/dL (0.2-1.0) Aspartate Amino Transf (AST/SGOT) 17 U/L (15-37) Alanine Aminotransferase (ALT/SGPT) 24 U/L (14-59) Alkaline Phosphatase 56 U/L (46-116) Total Protein 6.8 g/dL (6.4-8.2) Albumin 3.1 g/dL (3.4-5.0) Albumin/Globulin Ratio 0.8 (1.0-1.7) Laboratory Tests Test 07/06/18 04:00 White Blood Count 10.5 x10^3/uL (4.0-11.0) Red Blood Count 4.71 x10^6/uL (3.50-5.40) Hemoglobin 13.1 g/dL (12.0-15.5) Hematocrit 38.6 % (36.0-47.0) Mean Corpuscular Volume 82 fL (79-100) Mean Corpuscular Hemoglobin 28 pg (25-35) Mean Corpuscular Hemoglobin Concent 34 g/dL (31-37) Red Cell Distribution Width 15.3 % (11.5-14.5) Platelet Count 378 x10^3/uL (140-400) Sodium Level 141 mmol/L (136-145) Potassium Level 3.7 mmol/L (3.5-5.1) Chloride Level 105 mmol/L (98-107) Carbon Dioxide Level 27 mmol/L (21-32) Anion Gap 9 (6-14) Blood Urea Nitrogen 13 mg/dL (7-20) Creatinine 0.7 mg/dL (0.6-1.0) Estimated GFR (Cockcroft-Gault) 90.9 BUN/Creatinine Ratio 19 (6-20) Glucose Level 85 mg/dL (70-99) Calcium Level 8.6 mg/dL (8.5-10.1) Total Bilirubin 0.4 mg/dL (0.2-1.0) Aspartate Amino Transf (AST/SGOT) 17 U/L (15-37) Alanine Aminotransferase (ALT/SGPT) 24 U/L (14-59) Alkaline Phosphatase 56 U/L (46-116) Total Protein 6.8 g/dL (6.4-8.2) Albumin 3.1 g/dL (3.4-5.0) Albumin/Globulin Ratio 0.8 (1.0-1.7) Medications Current Medications Aspirin (Children'S Aspirin) 324 mg 1X ONCE PO Last administered on 07/03/18at 23:28; Start 07/03/18 at 22:00; Stop 07/03/18 at 22:01; Status DC Sodium Chloride 1,000 ml @ 1,000 mls/hr 1X ONCE IV Last administered on at 23:28; Start 07/03/18 at 22:00; Stop 07/03/18 at 22:59; Status DC Ceftriaxone Sodium 50 ml @ 100 mls/hr 1X ONCE IV Last administered on at 23:28; Start 07/03/18 at 23:00; Stop 07/03/18 at 23:29; Status DC Dexamethasone Sodium Phosphate (Decadron) 10 mg 1X ONCE IV Last administered on 07/04/18at 00:22; Start 07/04/18 at 00:00; Stop 07/04/18 at 00:01; Status DC Ketorolac Tromethamine (Toradol 30mg Vial) 30 mg 1X ONCE IV Last administered on 07/04/18at 00:23; Start 07/04/18 at 00:00; Stop 07/04/18 at 00:01; Status DC Metoclopramide HCl (Reglan Vial) 10 mg 1X ONCE IV Last administered on at 00:22; Start 07/04/18 at 00:00; Stop 07/04/18 at 00:01; Status DC Diphenhydramine HCl (Benadryl) 50 mg 1X ONCE IVP Last administered on at 00:24; Start 07/04/18 at 00:00; Stop 07/04/18 at 00:01; Status DC Ondansetron HCl (Zofran) 4 mg PRN Q8HRS PRN IV NAUSEA/VOMITING 1ST CHOICE; Start 07/04/18 at 00:00; Stop 07/04/18 at 23:59; Status DC Acetaminophen (Tylenol) 650 mg PRN Q4HRS PRN PO FEVER; Start 07/04/18 at 00:00 ; Stop 07/04/18 at 23:59; Status DC Potassium Chloride (Klor-Con) 40 meq 1X ONCE PO Last administered on at 10:44; Start 07/04/18 at 10:30; Stop 07/04/18 at 10:31; Status DC Ketorolac Tromethamine (Toradol 30mg Vial) 30 mg PRN Q6HRS PRN IV PAIN Last administered on 07/05/18at 21:46; Start 07/04/18 at 10:15; Stop 07/09/18 at 10:14 Pantoprazole Sodium (Protonix) 40 mg DAILYAC PO Last administered on 07/06/18at 10:25; Start 07/04/18 at 14:30 Clonazepam (KlonoPIN) 0.5 mg BID PO Last administered on 07/06/18at 10:25; Start 07/04/18 at 15:00 Duloxetine HCl (Cymbalta) 30 mg DAILY PO Last administered on 07/06/18at 10:25; Start 07/04/18 at 15:00 Meclizine HCl (Antivert) 12.5 mg TID PO Last administered on 07/05/18at 15:17; Start 07/04/18 at 15:30; Stop 07/05/18 at 15:50; Status DC Meclizine HCl (Antivert) 12.5 mg 1X ONCE PO ; Start 07/04/18 at 15:15; Stop at 15:16; Status UNV Meclizine HCl (Antivert) 25 mg TID PO Last administered on 07/06/18at 10:25; Start 07/05/18 at 21:00 Active Scripts Active Reported Multivitamins (Multivitamin) 1 Each Tablet 1 Each PO DAILY Vitamin D3 (Cholecalciferol (Vitamin D3)) 1,000 Unit Tablet 1,000 Unit PO DAILY Omeprazole 20 Mg Tablet.dr 20 Mg PO DAILY Vitals/I & O Vital Sign - Last 24 Hours 07/05/18 07/05/18 07/05/18 07/05/18 10:47 14:58 19:50 20:28 Temp 97.8 97.7 98.1 97.8 97.7 98.1 Pulse 50 54 54 Resp 16 17 16 B/P (MAP) 101/60 (74) 114/57 (76) 105/63 (77) Pulse Ox 97 99 97 O2 Delivery Room Air Room Air Room Air Room Air 07/05/18 07/06/18 07/06/18 23:45 03:45 07:05 Temp 97.9 97.6 98.0 97.9 97.6 98.0 Pulse 77 43 63 Resp 18 18 18 B/P (MAP) 101/45 (63) 91/43 (59) 108/43 (64) Pulse Ox 95 99 97 O2 Delivery Room Air Room Air Room Air Intake and Output 07/05/18 07/05/18 07/06/18 15:01 23:01 07:01 Intake Total 900 ml 700 ml Balance 900 ml 700 ml TEENA PALMER MD Jul 06, 2018 10:40
--- NOTE | 2018-07-06 11:27 | RAD ---
EXAM: Nuclear hepatobiliary scan. HISTORY: Pain. TECHNIQUE: Following intravenous administration of 5.5 mCi Tc 99m Choletec, anterior images of the abdomen were obtained at five minute intervals through one hour. Subsequently, 8 ounces of Ensure was ingested and additional images to assess gallbladder ejection fraction were obtained. FINDINGS: There is prompt radiotracer uptake by the liver. No focal defect is seen. There is normal excretion into the biliary tree. The gallbladder is visualized within 20 minutes and there is free flow into the duodenum. The gallbladder ejection fraction is 70%. IMPRESSION: Normal radionuclide biliary scan. Electronically signed by: Kathy Belle MD (07/06/2018 11:23 AM) [id number]
[2018-07-06 11:54] VITALS: BP 117/53
--- NOTE | 2018-07-06 12:43 | PDOC ---
Subjective: Subjective: Epigastric pain to LUQ. Does not think pain was worse during HIDA. Eating a little. No n/v. C/o bilateral neck pain with "white balls" in her mouth, also left ear pain. Objective: Objective: Saw Dr. Taylor on 06/30/18 for dysphagia (lentils got stuck, felt SOA w/ chest pain, vomiting), heartburn (has taken omeprazole, famotidine, and Carafate) w/ recent NSAID use. Recommendation was for EGD. Did have EGD in 2011 (Dr. Taylor): reflux, empiric esophageal dilation (w/ improvement in chest pain and dysphagia), H. pylori negative gastritis. Vital Signs: Vital Signs Date Time Temp Pulse Resp B/P (MAP) Pulse Ox O2 Delivery O2 Flow Rate FiO2 07/06/18 11:54 98.0 59 16 117/53 (74) 96 Room Air 98.0 Labs: Laboratory Tests Test 07/06/18 04:00 White Blood Count 10.5 x10^3/uL Red Blood Count 4.71 x10^6/uL Hemoglobin 13.1 g/dL Hematocrit 38.6 % Mean Corpuscular Volume 82 fL Mean Corpuscular Hemoglobin 28 pg Mean Corpuscular Hemoglobin Concent 34 g/dL Red Cell Distribution Width 15.3 % Platelet Count 378 x10^3/uL Sodium Level 141 mmol/L Potassium Level 3.7 mmol/L Chloride Level 105 mmol/L Carbon Dioxide Level 27 mmol/L Anion Gap 9 Blood Urea Nitrogen 13 mg/dL Creatinine 0.7 mg/dL Estimated GFR (Cockcroft-Gault) 90.9 BUN/Creatinine Ratio 19 Glucose Level 85 mg/dL Calcium Level 8.6 mg/dL Total Bilirubin 0.4 mg/dL Aspartate Amino Transf (AST/SGOT) 17 U/L Alanine Aminotransferase (ALT/SGPT) 24 U/L Alkaline Phosphatase 56 U/L Total Protein 6.8 g/dL Albumin 3.1 g/dL Albumin/Globulin Ratio 0.8 Imaging: HIDA 07/06 IMPRESSION: Normal radionuclide biliary scan. US 07/05 IMPRESSION: Fatty infiltration in the liver. Gallbladder wall is thickened at 3.5 mm but no cholelithiasis or sludge is present. PE: GEN: NAD LUNGS: CTAB HEART: RRR ABD: NABS, S/ND/NT NEURO/PSYCH: A & O 3 A/P: Upper abd pain - US w/ thickened GB wall, HIDA WNL H/o GERD - on PPI, past EGD in 2011 w/ reflux and empiric esophageal dilation performed Throat/neck/ear pain - per primary -- Pain persists, also with unusual symptoms (ear and neck pain). H/o GERD on PPI. Repeat EGD recommended at [facility] on 06/30/18 w/ Dr. Taylor. Will review next step w/ Dr. Cohen. RIVERA STAFFORD Jul 06, 2018 12:42
--- NOTE | 2018-07-06 14:06 | PDOC ---
PROGRESS NOTES Assessment Assessment Dizziness and light headiness for 2 weeks. Vertigo x 2 weeks. BPPV likely. Headache. Orthostatic hypotension, intermittent. UTI. DM. Hypokalemia. Anxiety. Obesity. RECOMMENDATIONS/PLAN: Meclizine 25 mg tid. Treat medical diseases. OT/PT. Brain MRI as outpatient if not improving. HCT: negative. Carotid A US + Doppler: Normal study. HISTORY OF THE PRESENT ILLNESS: 43-y-old English origin female patient has been having symptoms of dizziness, vertigo, light headiness for about 2 weeks to come to the ER of [facility]. She was eventually admitted for further evaluation. She stated her symptoms were better in lying position, but worse in standing position and walking. No cranial, sensory or motor deficits. She complained different symptoms every day such as complained pain in her upper and lower gums, neck, mandibular area etc on 07/06. But no abnormalities found on exam. PAST MEDICAL HISTORY: Please see above. PAST SURGERY HISTORY: No major surgery recently. ALLERGY: NKDA MEDICATIONS: Refer to [facility] HISTORY: Non contributory. SOCIAL HISTORY: Lives at home. Denies smoking, drinking, and illicit drug use. REVIEW OF SYSTEMS: Constitutional:Obesity. Head: No traumatic brain or head injury. Skin: No edema, or rash. Ear: No infection. Eyes: No vision loss or color blindness. Nose: No bleeding or purulent discharges. Hearing: No hearing decrease. Neck: No injury. Breast: No history of cancer, masses,or discharges. Cardiac: No VA, arrhythmia. Pulmonary: No pneumonia, COPD. GI: No GI ulcer, GI bleeding. Urinary/genital: UTI. Endocrinologic: Diabetes Mellitus ? Skeletomuscular: No muscular atrophy, deformity. Neurological: see HP. Psychiatric: Denies drug use/abuse. Otherwise, not [id number] review of systems. PHYSICAL EXAMINATION: General appearance is in no acute distress. HEENT: Normocephalic and nontraumatic. Eyes, nose, ears, and throat are unremarkable. Neck is supple. No lymphadenopathy. No bruits are heard over the carotid artery. No crepitus. Cardiovascular: S1, S2, regular rate and rhythm. Pulmonary: Clear to auscultation bilaterally. Abdomen: Bowel sounds are positive. Abdomen is soft, nontender, and nondistended. Extremities: No rash, lesions, or edema. No restriction of range of motion NEUROLOGICAL EXAMINATION: Alert Oriented to time, place and person. PERRL. EOMI. CN: no focal findings. Muscle tone: within normal. Muscle strength: 5 DTR: 2 Plantar reflex: Flexor response bilaterally Gait: Normal. Sensory exam: no abnormal findings. No cerebellar signs elicited. F-T-N test accurate. Objective Objective Vital Signs Date Time Temp Pulse Resp B/P (MAP) Pulse Ox O2 Delivery O2 Flow Rate FiO2 07/06/18 11:54 98.0 59 16 117/53 (74) 96 Room Air 98.0 Intake and Output 07/06/18 07:01 Intake Total 1600 ml Balance 1600 ml Intake Oral 1600 ml # Voids 10 Vitals Signs Vitals VS - Last 72 Hours, by Label Date Time Temp Pulse Resp B/P (MAP) Pulse Ox O2 Delivery O2 Flow Rate FiO2 07/06/18 11:54 98.0 59 16 117/53 (74) 96 Room Air 98.0 07/06/18 08:00 Room Air 07/06/18 07:05 98.0 63 18 108/43 (64) 97 Room Air 98.0 07/06/18 03:45 97.6 43 18 91/43 (59) 99 Room Air 97.6 07/05/18 23:45 97.9 77 18 101/45 (63) 95 Room Air 97.9 07/05/18 20:28 Room Air 07/05/18 19:50 98.1 54 16 105/63 (77) 97 Room Air 98.1 07/05/18 14:58 97.7 54 17 114/57 (76) 99 Room Air 97.7 07/05/18 10:47 97.8 50 16 101/60 (74) 97 Room Air 97.8 07/05/18 08:00 Room Air 07/05/18 07:30 97.9 46 17 97/59 (72) 99 Room Air 97.9 Laboratory Laboratory Laboratory Tests Test 07/06/18 04:00 White Blood Count 10.5 x10^3/uL (4.0-11.0) Red Blood Count 4.71 x10^6/uL (3.50-5.40) Hemoglobin 13.1 g/dL (12.0-15.5) Hematocrit 38.6 % (36.0-47.0) Mean Corpuscular Volume 82 fL (79-100) Mean Corpuscular Hemoglobin 28 pg (25-35) Mean Corpuscular Hemoglobin Concent 34 g/dL (31-37) Red Cell Distribution Width 15.3 % (11.5-14.5) Platelet Count 378 x10^3/uL (140-400) Sodium Level 141 mmol/L (136-145) Potassium Level 3.7 mmol/L (3.5-5.1) Chloride Level 105 mmol/L (98-107) Carbon Dioxide Level 27 mmol/L (21-32) Anion Gap 9 (6-14) Blood Urea Nitrogen 13 mg/dL (7-20) Creatinine 0.7 mg/dL (0.6-1.0) Estimated GFR (Cockcroft-Gault) 90.9 BUN/Creatinine Ratio 19 (6-20) Glucose Level 85 mg/dL (70-99) Calcium Level 8.6 mg/dL (8.5-10.1) Total Bilirubin 0.4 mg/dL (0.2-1.0) Aspartate Amino Transf (AST/SGOT) 17 U/L (15-37) Alanine Aminotransferase (ALT/SGPT) 24 U/L (14-59) Alkaline Phosphatase 56 U/L (46-116) Total Protein 6.8 g/dL (6.4-8.2) Albumin 3.1 g/dL (3.4-5.0) Albumin/Globulin Ratio 0.8 (1.0-1.7) Medication Medications Current Medications Meclizine HCl (Antivert) 25 mg TID PO Last administered on 07/06/18at 10:25; Start 07/05/18 at 21:00 Sucralfate (Carafate) 1 gm QIDACHS PO ; Start 07/06/18 at 13:00 Comment Review of Relevant I have reviewed the following items dakotah (where applicable) has been applied. NICKY ESPARZA MD Jul 06, 2018 14:06
[2018-07-06] MEDS: SUCRALFATE 1 GM TABLET. PO SCH ×3 (14:07→21:08)
[2018-07-06 15:12] VITALS: BP 109/72
[2018-07-06] MEDS: KETOROLAC 30 MG/ML VIAL. IV PRN (17:14)
[2018-07-06 19:53] VITALS: BP 112/63
[2018-07-06 23:30] VITALS: BP 102/38
[2018-07-07 03:17] LABS: HEMOGLOBIN A1C 5.5 % (4.8-5.6)
[2018-07-07 03:44] VITALS: BP_SYST 97
[2018-07-07 07:00] VITALS: BP 94/49
[2018-07-07] MEDS: PANTOPRAZOLE 40 MG TABLET.DR. PO SCH (07:30)
[2018-07-07] MEDS: SUCRALFATE 1 GM TABLET. PO SCH ×4 (07:30→21:17)
[2018-07-07] MEDS: DULoxetine HCL 30 MG CAPSULE.DR PO SCH (08:20)
[2018-07-07] MEDS: clonazePAM 0.5 MG TABLET PO SCH ×2 (08:20→21:17)
[2018-07-07] MEDS: MECLIZINE HCL 12.5 MG TABLET. PO SCH ×3 (08:20→21:17)
--- NOTE | 2018-07-07 10:56 | PDOC ---
Subjective: Subjective: Seen earlier when unable to use [employer]bs[employer]. Biggest complaint is throat and ear pain. Abd pain is better - mentions left-sided discomfort yesterday, better today. Tolerating PO and stooling w/o issue. Objective: Objective: D/w RN - aware of ENT complaints, will pass along to primary. Plans for GES tomorrow instead of today (had nuc med test yesterday). Vital Signs: Vital Signs Date Time Temp Pulse Resp B/P (MAP) Pulse Ox O2 Delivery O2 Flow Rate FiO2 07/07/18 07:48 Room Air 07/07/18 07:00 97.6 58 16 94/49 (64) 100 97.6 Labs: Laboratory Tests Test 07/06/18 17:45 Erythrocyte Sedimentation Rate 8 Imaging: CT A/P PENDING PE: GEN: NAD, eating breakfast LUNGS: CTAB HEART: RRR ABD: less tender, soft, BS+ NEURO/PSYCH: A & O 3 A/P: Upper abd pain - past EGD w/ GERD, US w/ thickened GB wall, HIDA WNL, CT A/P pending Throat/ear pain - per primary -- Await pending imaging. Continue PPI +/- Carafate. RIVERA STAFFORD Jul 07, 2018 10:56
[2018-07-07 11:00] VITALS: BP 84/44
--- NOTE | 2018-07-07 11:20 | PDOC ---
PROGRESS NOTES Chief Complaint Chief Complaint 1-chest pain , enzymes neg, echo normal likely not cardiac 2-headache and dizziness, seen by neuro 3-epigastric pain and GERD even on PPI , FOLLOWING, GI 4-obesity 5- hypotension with episodes of flushing will check 24 h urine for 5HIAA to R/ O carcinoid 7-bradycardia , TSH normal 8- anxiety and depression started Cymbalta and clonazepam 9. LLQ discomfort radiating to LUQ plan ct abd and pelvis History of Present Illness History of Present Illness enzyme negative, echo ok , continue to have epigastric pain , abd US with thickening gallbladder wall, no stones PIPIDA scan, today agrees that she is nervous and depressed Vitals Vitals Vital Signs Date Time Temp Pulse Resp B/P (MAP) Pulse Ox O2 Delivery O2 Flow Rate FiO2 07/07/18 07:48 Room Air 07/07/18 07:00 97.6 58 16 94/49 (64) 100 97.6 Physical Exam General: Alert, Oriented X3, Cooperative, mild distress Heart: Regular rate, Normal S1, Normal S2 Lungs: Clear Abdomen: Normal bowel sounds, Soft, Other (bowel sounds are present. Mild tenderness over the epigastrium and left side of the abdomen) Extremities: No cyanosis, No edema, Normal pulses Skin: No rashes, No breakdown Labs LABS CT Abdomen and Pelvis without contrast History: Left lower quadrant pain, urinary tract infection Technique: Noncontrast CT imaging was performed of the abdomen and pelvis. Multiplanar images are reviewed. Exposure: One or more of the following individualized dose reduction techniques were utilized for this examination: 1. Automated exposure control 2. Adjustment of the mA and/or kV according to patient size 3. Use of iterative reconstruction technique. Comparison: 09/12/2012 Findings: There is mild atelectasis lower lobes bilaterally near the bases.Accurate evaluation of abdominal visceral organs is limited without intravenous contrast. There is no obvious abnormality of the spleen, liver, or pancreas. There is no adrenal nodularity. No urolithiasis or hydronephrosis is identified. There is duplication of the right renal collecting system. Accurate evaluation of bowel is limited without oral contrast. There is stable dilatation of the appendix about 0.8 cm, no new significant adjacent inflammatory change. There is no significant free air, free fluid, bowel dilatation. There is some gas distention of the more distal sigmoid colon. Impression: 1. There is no urolithiasis or hydronephrosis. 2. There is stable dilatation of the appendix without adjacent inflammatory change. Electronically signed by: Pradip Brock MD (07/07/2018 12:48 PM) [id number] Laboratory Tests Test 07/06/18 17:45 Erythrocyte Sedimentation Rate 8 (0-25) Assessment and Plan Assessmemt and Plan Problems Medical Problems: (1) Dizziness Status: Acute (2) Headache Status: Acute (3) Palpitations Status: Acute (4) UTI (urinary tract infection) Status: Acute Comment Review of Relevant I have reviewed the following items dakotah (where applicable) has been applied. Labs Laboratory Tests Test 07/06/18 04:00 07/06/18 17:45 White Blood Count 10.5 x10^3/uL (4.0-11.0) Red Blood Count 4.71 x10^6/uL (3.50-5.40) Hemoglobin 13.1 g/dL (12.0-15.5) Hematocrit 38.6 % (36.0-47.0) Mean Corpuscular Volume 82 fL (79-100) Mean Corpuscular Hemoglobin 28 pg (25-35) Mean Corpuscular Hemoglobin Concent 34 g/dL (31-37) Red Cell Distribution Width 15.3 % (11.5-14.5) Platelet Count 378 x10^3/uL (140-400) Sodium Level 141 mmol/L (136-145) Potassium Level 3.7 mmol/L (3.5-5.1) Chloride Level 105 mmol/L (98-107) Carbon Dioxide Level 27 mmol/L (21-32) Anion Gap 9 (6-14) Blood Urea Nitrogen 13 mg/dL (7-20) Creatinine 0.7 mg/dL (0.6-1.0) Estimated GFR (Cockcroft-Gault) 90.9 BUN/Creatinine Ratio 19 (6-20) Glucose Level 85 mg/dL (70-99) Calcium Level 8.6 mg/dL (8.5-10.1) Total Bilirubin 0.4 mg/dL (0.2-1.0) Aspartate Amino Transf (AST/SGOT) 17 U/L (15-37) Alanine Aminotransferase (ALT/SGPT) 24 U/L (14-59) Alkaline Phosphatase 56 U/L (46-116) Total Protein 6.8 g/dL (6.4-8.2) Albumin 3.1 g/dL (3.4-5.0) Albumin/Globulin Ratio 0.8 (1.0-1.7) Erythrocyte Sedimentation Rate 8 (0-25) Laboratory Tests Test 07/06/18 17:45 Erythrocyte Sedimentation Rate 8 (0-25) Medications Current Medications Aspirin (Children'S Aspirin) 324 mg 1X ONCE PO Last administered on 07/03/18 23:28; Start 07/03/18 at 22:00; Stop 07/03/18 at 22:01; Status DC Sodium Chloride 1,000 ml @ 1,000 mls/hr 1X ONCE IV Last administered on 23:28; Start 07/03/18 at 22:00; Stop 07/03/18 at 22:59; Status DC Ceftriaxone Sodium 50 ml @ 100 mls/hr 1X ONCE IV Last administered on at 23:28; Start 07/03/18 at 23:00; Stop 07/03/18 at 23:29; Status DC Dexamethasone Sodium Phosphate (Decadron) 10 mg 1X ONCE IV Last administered on 07/04/18at 00:22; Start 07/04/18 at 00:00; Stop 07/04/18 at 00:01; Status DC Ketorolac Tromethamine (Toradol 30mg Vial) 30 mg 1X ONCE IV Last administered on 07/04/18at 00:23; Start 07/04/18 at 00:00; Stop 07/04/18 at 00:01; Status DC Metoclopramide HCl (Reglan Vial) 10 mg 1X ONCE IV Last administered on at 00:22; Start 07/04/18 at 00:00; Stop 07/04/18 at 00:01; Status DC Diphenhydramine HCl (Benadryl) 50 mg 1X ONCE IVP Last administered on at 00:24; Start 07/04/18 at 00:00; Stop 07/04/18 at 00:01; Status DC Ondansetron HCl (Zofran) 4 mg PRN Q8HRS PRN IV NAUSEA/VOMITING 1ST CHOICE; Start 07/04/18 at 00:00; Stop 07/04/18 at 23:59; Status DC Acetaminophen (Tylenol) 650 mg PRN Q4HRS PRN PO FEVER; Start 07/04/18 at 00:00 ; Stop 07/04/18 at 23:59; Status DC Potassium Chloride (Klor-Con) 40 meq 1X ONCE PO Last administered on at 10:44; Start 07/04/18 at 10:30; Stop 07/04/18 at 10:31; Status DC Ketorolac Tromethamine (Toradol 30mg Vial) 30 mg PRN Q6HRS PRN IV PAIN Last administered on 07/06/18at 17:14; Start 07/04/18 at 10:15; Stop 07/09/18 at 10:14 Pantoprazole Sodium (Protonix) 40 mg DAILYAC PO Last administered on 07/06/18at 10:25; Start 07/04/18 at 14:30 Clonazepam (KlonoPIN) 0.5 mg BID PO Last administered on 07/06/18 21:08; Start 07/04/18 at 15:00 Duloxetine HCl (Cymbalta) 30 mg DAILY PO Last administered on 07/06/18at 10:25; Start 07/04/18 at 15:00 Meclizine HCl (Antivert) 12.5 mg TID PO Last administered on 07/05/18at 15:17; Start 07/04/18 at 15:30; Stop 07/05/18 at 15:50; Status DC Meclizine HCl (Antivert) 12.5 mg 1X ONCE PO ; Start 07/04/18 at 15:15; Stop at 15:16; Status UNV Meclizine HCl (Antivert) 25 mg TID PO Last administered on 07/06/18at 21:08; Start 07/05/18 at 21:00 Sucralfate (Carafate) 1 gm QIDACHS PO Last administered on 07/06/18at 21:08; Start 07/06/18 at 13:00 Active Scripts Active Reported Multivitamins (Multivitamin) 1 Each Tablet 1 Each PO DAILY Vitamin D3 (Cholecalciferol (Vitamin D3)) 1,000 Unit Tablet 1,000 Unit PO DAILY Omeprazole 20 Mg Tablet.dr 20 Mg PO DAILY Vitals/I & O Vital Sign - Last 24 Hours 07/06/18 07/06/18 07/06/18 07/06/18 11:54 15:12 19:53 20:00 Temp 98.0 98.4 97.6 98.0 98.4 97.6 Pulse 59 55 76 Resp 16 16 20 B/P (MAP) 117/53 (74) 109/72 (84) 112/63 (79) Pulse Ox 96 95 98 O2 Delivery Room Air Room Air Room Air Room Air 07/06/18 07/07/18 07/07/18 07/07/18 23:30 03:44 07:00 07:48 Temp 98.0 97.4 97.6 98.0 97.4 97.6 Pulse 81 68 58 Resp 20 20 16 B/P (MAP) 102/38 (59) 97/ 94/49 (64) Pulse Ox 100 98 100 O2 Delivery Room Air Room Air Room Air Room Air Intake and Output 07/06/18 07/06/18 07/07/18 15:00 23:00 07:00 Intake Total 500 ml 120 ml Balance 500 ml 120 ml TEENA PALMER MD Jul 07, 2018 11:20
--- NOTE | 2018-07-07 12:51 | RAD ---
CT Abdomen and Pelvis without contrast History: Left lower quadrant pain, urinary tract infection Technique: Noncontrast CT imaging was performed of the abdomen and pelvis. Multiplanar images are reviewed. Exposure: One or more of the following individualized dose reduction techniques were utilized for this examination: 1. Automated exposure control 2. Adjustment of the mA and/or kV according to patient size 3. Use of iterative reconstruction technique. Comparison: 09/12/2012 Findings: There is mild atelectasis lower lobes bilaterally near the bases.Accurate evaluation of abdominal visceral organs is limited without intravenous contrast. There is no obvious abnormality of the spleen, liver, or pancreas. There is no adrenal nodularity. No urolithiasis or hydronephrosis is identified. There is duplication of the right renal collecting system. Accurate evaluation of bowel is limited without oral contrast. There is stable dilatation of the appendix about 0.8 cm, no new significant adjacent inflammatory change. There is no significant free air, free fluid, bowel dilatation. There is some gas distention of the more distal sigmoid colon. Impression: 1. There is no urolithiasis or hydronephrosis. 2. There is stable dilatation of the appendix without adjacent inflammatory change. Electronically signed by: Pradip Brock MD (07/07/2018 12:48 PM) [id number]
[2018-07-07] MEDS ORDERED: IV NORMAL SALINE 1000ML BAG 1,000 ML IV ONE (13:00)
[2018-07-07 14:04] VITALS: BP 99/65
--- NOTE | 2018-07-07 19:07 | PDOC ---
PROGRESS NOTES Subjective Subjective Patient with multiple complaints, very anxious, very concerned that so far nothing has been found and she feels that there is something that is terribly wrong. She is quite concerned with her hypotension and has been looking up possible causes in the Internet. Continues to complains of multiple pains as well as flushing of face and hands Objective Objective Vital Signs Date Time Temp Pulse Resp B/P (MAP) Pulse Ox O2 Delivery O2 Flow Rate FiO2 07/07/18 14:04 98.4 53 16 99/65 (76) 95 Room Air 98.4 Intake and Output 07/07/18 07:00 Intake Total 620 ml Balance 620 ml Intake Oral 620 ml # Voids 8 Physical Exam Physical Exam No changes in cardiac exam Assessment Assessment Workup is still in progress. The urinary collection for catecholamines is pending. She is also being evaluated for possible carcinoid. I agree with the present plan. Comment Review of Relevant I have reviewed the following items dakotah (where applicable) has been applied. Labs Laboratory Tests Test 07/06/18 04:00 07/06/18 17:45 White Blood Count 10.5 x10^3/uL (4.0-11.0) Red Blood Count 4.71 x10^6/uL (3.50-5.40) Hemoglobin 13.1 g/dL (12.0-15.5) Hematocrit 38.6 % (36.0-47.0) Mean Corpuscular Volume 82 fL (79-100) Mean Corpuscular Hemoglobin 28 pg (25-35) Mean Corpuscular Hemoglobin Concent 34 g/dL (31-37) Red Cell Distribution Width 15.3 % (11.5-14.5) Platelet Count 378 x10^3/uL (140-400) Sodium Level 141 mmol/L (136-145) Potassium Level 3.7 mmol/L (3.5-5.1) Chloride Level 105 mmol/L (98-107) Carbon Dioxide Level 27 mmol/L (21-32) Anion Gap 9 (6-14) Blood Urea Nitrogen 13 mg/dL (7-20) Creatinine 0.7 mg/dL (0.6-1.0) Estimated GFR (Cockcroft-Gault) 90.9 BUN/Creatinine Ratio 19 (6-20) Glucose Level 85 mg/dL (70-99) Calcium Level 8.6 mg/dL (8.5-10.1) Total Bilirubin 0.4 mg/dL (0.2-1.0) Aspartate Amino Transf (AST/SGOT) 17 U/L (15-37) Alanine Aminotransferase (ALT/SGPT) 24 U/L (14-59) Alkaline Phosphatase 56 U/L (46-116) Total Protein 6.8 g/dL (6.4-8.2) Albumin 3.1 g/dL (3.4-5.0) Albumin/Globulin Ratio 0.8 (1.0-1.7) Erythrocyte Sedimentation Rate 8 (0-25) Microbiology 07/03/18 Urine Culture - Final, Complete 07/03/18 Urine Culture Result 1 (HOMA) - Final, Complete Medications Current Medications Aspirin (Children'S Aspirin) 324 mg 1X ONCE PO Last administered on 07/03/18at 23:28; Start 07/03/18 at 22:00; Stop 07/03/18 at 22:01; Status DC Sodium Chloride 1,000 ml @ 1,000 mls/hr 1X ONCE IV Last administered on at 23:28; Start 07/03/18 at 22:00; Stop 07/03/18 at 22:59; Status DC Ceftriaxone Sodium 50 ml @ 100 mls/hr 1X ONCE IV Last administered on at 23:28; Start 07/03/18 at 23:00; Stop 07/03/18 at 23:29; Status DC Dexamethasone Sodium Phosphate (Decadron) 10 mg 1X ONCE IV Last administered on 07/04/18at 00:22; Start 07/04/18 at 00:00; Stop 07/04/18 at 00:01; Status DC Ketorolac Tromethamine (Toradol 30mg Vial) 30 mg 1X ONCE IV Last administered on 07/04/18at 00:23; Start 07/04/18 at 00:00; Stop 07/04/18 at 00:01; Status DC Metoclopramide HCl (Reglan Vial) 10 mg 1X ONCE IV Last administered on at 00:22; Start 07/04/18 at 00:00; Stop 07/04/18 at 00:01; Status DC Diphenhydramine HCl (Benadryl) 50 mg 1X ONCE IVP Last administered on at 00:24; Start 07/04/18 at 00:00; Stop 07/04/18 at 00:01; Status DC Ondansetron HCl (Zofran) 4 mg PRN Q8HRS PRN IV NAUSEA/VOMITING 1ST CHOICE; Start 07/04/18 at 00:00; Stop 07/04/18 at 23:59; Status DC Acetaminophen (Tylenol) 650 mg PRN Q4HRS PRN PO FEVER; Start 07/04/18 at 00:00 ; Stop 07/04/18 at 23:59; Status DC Potassium Chloride (Klor-Con) 40 meq 1X ONCE PO Last administered on at 10:44; Start 07/04/18 at 10:30; Stop 07/04/18 at 10:31; Status DC Ketorolac Tromethamine (Toradol 30mg Vial) 30 mg PRN Q6HRS PRN IV PAIN Last administered on 07/06/18at 17:14; Start 07/04/18 at 10:15; Stop 07/09/18 at 10:14 Pantoprazole Sodium (Protonix) 40 mg DAILYAC PO Last administered on 07/06/18at 10:25; Start 07/04/18 at 14:30 Clonazepam (KlonoPIN) 0.5 mg BID PO Last administered on 07/06/18at 21:08; Start 07/04/18 at 15:00 Duloxetine HCl (Cymbalta) 30 mg DAILY PO Last administered on 07/06/18at 10:25; Start 07/04/18 at 15:00 Meclizine HCl (Antivert) 12.5 mg TID PO Last administered on 07/05/18at 15:17; Start 07/04/18 at 15:30; Stop 07/05/18 at 15:50; Status DC Meclizine HCl (Antivert) 12.5 mg 1X ONCE PO ; Start 07/04/18 at 15:15; Stop at 15:16; Status UNV Meclizine HCl (Antivert) 25 mg TID PO Last administered on 07/07/18at 11:41; Start 07/05/18 at 21:00 Sucralfate (Carafate) 1 gm QIDACHS PO Last administered on 07/07/18at 17:15; Start 07/06/18 at 13:00 Sodium Chloride 1,000 ml @ 1,000 mls/hr 1X ONCE IV Last administered on at 12:48; Start 07/07/18 at 13:00; Stop 07/07/18 at 13:59; Status DC Active Scripts Active Reported Multivitamins (Multivitamin) 1 Each Tablet 1 Each PO DAILY Vitamin D3 (Cholecalciferol (Vitamin D3)) 1,000 Unit Tablet 1,000 Unit PO DAILY Omeprazole 20 Mg Tablet.dr 20 Mg PO DAILY Vitals/I & O Vital Sign - Last 24 Hours 07/06/18 07/06/18 07/06/18 07/07/18 19:53 20:00 23:30 03:44 Temp 97.6 98.0 97.4 97.6 98.0 97.4 Pulse 76 81 68 Resp 20 20 20 B/P (MAP) 112/63 (79) 102/38 (59) 97/ Pulse Ox 98 100 98 O2 Delivery Room Air Room Air Room Air Room Air 07/07/18 07/07/18 07/07/18 07/07/18 07:00 07:48 11:00 14:04 Temp 97.6 98.1 98.4 97.6 98.1 98.4 Pulse 58 52 53 Resp 16 16 16 B/P (MAP) 94/49 (64) 84/44 (57) 99/65 (76) Pulse Ox 100 99 95 O2 Delivery Room Air Room Air Room Air Room Air Intake and Output 07/06/18 07/06/18 07/07/18 15:00 23:00 07:00 Intake Total 500 ml 120 ml Balance 500 ml 120 ml KENDELL WELDON MD Jul 07, 2018 19:07
--- NOTE | 2018-07-07 19:09 | PDOC ---
PROGRESS NOTES Assessment Assessment Dizziness and light headiness for 2 weeks. Vertigo x 2 weeks. BPPV. Headache. Orthostatic hypotension, intermittent. UTI. DM. Hypokalemia. Anxiety. Obesity. Conversion disorder. RECOMMENDATIONS/PLAN: Meclizine 25 mg tid. Treat medical diseases. OT/PT. FU with PCP. HCT: negative. Carotid A US + Doppler: Normal study. HISTORY OF THE PRESENT ILLNESS: 43-y-old [place] origin female patient has been having symptoms of dizziness, vertigo, light headiness for about 2 weeks to come to the ER of [facility]. She was eventually admitted for further evaluation. She stated her symptoms were better in lying position, but worse in standing position and walking. No cranial, sensory or motor deficits. She complained different symptoms every day such as pain in her upper and lower gums, neck, mandibular area etc on 07/06. But no abnormalities found on exam. She complained numbness in her feet on 07/07. PAST MEDICAL HISTORY: Please see above. PAST SURGERY HISTORY: No major surgery recently. ALLERGY: NKDA MEDICATIONS: Refer to [facility] HISTORY: Non contributory. SOCIAL HISTORY: Lives at home. Denies smoking, drinking, and illicit drug use. REVIEW OF SYSTEMS: Constitutional:Obesity. Head: No traumatic brain or head injury. Skin: No edema, or rash. Ear: No infection. Eyes: No vision loss or color blindness. Nose: No bleeding or purulent discharges. Hearing: No hearing decrease. Neck: No injury. Breast: No history of cancer, masses,or discharges. Cardiac: No VA, arrhythmia. Pulmonary: No pneumonia, COPD. GI: No GI ulcer, GI bleeding. Urinary/genital: UTI. Endocrinologic: Diabetes Mellitus ? Skeletomuscular: No muscular atrophy, deformity. Neurological: see HP. Psychiatric: Denies drug use/abuse. Otherwise, not [id number] review of systems. PHYSICAL EXAMINATION: General appearance is in no acute distress. HEENT: Normocephalic and nontraumatic. Eyes, nose, ears, and throat are unremarkable. Neck is supple. No lymphadenopathy. No bruits are heard over the carotid artery. No crepitus. Cardiovascular: S1, S2, regular rate and rhythm. Pulmonary: Clear to auscultation bilaterally. Abdomen: Bowel sounds are positive. Abdomen is soft, nontender, and nondistended. Extremities: No rash, lesions, or edema. No restriction of range of motion NEUROLOGICAL EXAMINATION: Alert Oriented to time, place and person. PERRL. EOMI. CN: no focal findings. Muscle tone: within normal. Muscle strength: 5 DTR: 2 Plantar reflex: Flexor response bilaterally Gait: Normal. Sensory exam: no abnormal findings. No cerebellar signs elicited. F-T-N test accurate. Objective Objective Vital Signs Date Time Temp Pulse Resp B/P (MAP) Pulse Ox O2 Delivery O2 Flow Rate FiO2 07/07/18 14:04 98.4 53 16 99/65 (76) 95 Room Air 98.4 Intake and Output 07/07/18 07:00 Intake Total 620 ml Balance 620 ml Intake Oral 620 ml # Voids 8 Vitals Signs Vitals VS - Last 72 Hours, by Label Date Time Temp Pulse Resp B/P (MAP) Pulse Ox O2 Delivery O2 Flow Rate FiO2 07/07/18 14:04 98.4 53 16 99/65 (76) 95 Room Air 98.4 07/07/18 11:00 98.1 52 16 84/44 (57) 99 Room Air 98.1 07/07/18 07:48 Room Air 07/07/18 07:00 97.6 58 16 94/49 (64) 100 Room Air 97.6 07/07/18 03:44 97.4 68 20 97/ 98 Room Air 97.4 07/06/18 23:30 98.0 81 20 102/38 (59) 100 Room Air 98.0 07/06/18 20:00 Room Air 07/06/18 19:53 97.6 76 20 112/63 (79) 98 Room Air 97.6 07/06/18 15:12 98.4 55 16 109/72 (84) 95 Room Air 98.4 07/06/18 11:54 98.0 59 16 117/53 (74) 96 Room Air 98.0 07/06/18 08:00 Room Air 07/06/18 07:05 98.0 63 18 108/43 (64) 97 Room Air 98.0 Laboratory Laboratory Microbiology 07/03/18 Urine Culture - Final, Complete 07/03/18 Urine Culture Result 1 (HOMA) - Final, Complete Medication Medications Current Medications Sodium Chloride 1,000 ml @ 1,000 mls/hr 1X ONCE IV Last administered on 8/21/ 18at 12:48; Start 07/07/18 at 13:00; Stop 07/07/18 at 13:59; Status DC Comment Review of Relevant I have reviewed the following items dakotah (where applicable) has been applied. NICKY ESPARZA MD Jul 07, 2018 19:09
[2018-07-07 19:46] VITALS: BP 103/52
[2018-07-07 23:05] VITALS: BP 104/55
[2018-07-08 03:37] VITALS: BP 93/54
[2018-07-08 07:00] VITALS: BP 102/60
--- NOTE | 2018-07-08 10:37 | PDOC ---
PROGRESS NOTES Chief Complaint Chief Complaint 1-chest pain , enzymes neg, echo normal likely not cardiac 2-headache and dizziness, seen by neuro 3-epigastric pain and GERD even on PPI , FOLLOWING, GI 4-obesity 5- hypotension with episodes of flushing will check 24 h urine for 5HIAA to R/ O carcinoid 7-bradycardia , TSH normal 8- anxiety and depression started Cymbalta and clonazepam 9. LLQ discomfort radiating to LUQ plan ct abd and pelvis History of Present Illness History of Present Illness enzyme negative, echo ok , continue to have epigastric pain , abd US with thickening gallbladder wall, no stones PIPIDA scan, reviewed agrees that she is nervous and depressed ct abd neg GET OK Vitals Vitals Vital Signs Date Time Temp Pulse Resp B/P (MAP) Pulse Ox O2 Delivery O2 Flow Rate FiO2 07/08/18 07:00 98.1 58 16 102/60 (74) 99 Room Air 98.1 Physical Exam General: Alert, Oriented X3, Cooperative, No acute distress, mild distress Heart: Regular rate, Normal S1, Normal S2, No murmurs Lungs: Clear Abdomen: Normal bowel sounds, Soft, Other (bowel sounds are present. Mild tenderness over the epigastrium and left side of the abdomen) Extremities: No clubbing, No cyanosis, No edema, Normal pulses Skin: No rashes, No breakdown Assessment and Plan Assessmemt and Plan Problems Medical Problems: (1) Dizziness Status: Acute (2) Headache Status: Acute (3) Palpitations Status: Acute (4) UTI (urinary tract infection) Status: Acute Comment Review of Relevant I have reviewed the following items dakotah (where applicable) has been applied. Labs Laboratory Tests Test 07/06/18 17:45 Erythrocyte Sedimentation Rate 8 (0-25) Microbiology 07/03/18 Urine Culture - Final, Complete 07/03/18 Urine Culture Result 1 (HOMA) - Final, Complete Medications Current Medications Aspirin (Children'S Aspirin) 324 mg 1X ONCE PO Last administered on 07/03/18at 23:28; Start 07/03/18 at 22:00; Stop 07/03/18 at 22:01; Status DC Sodium Chloride 1,000 ml @ 1,000 mls/hr 1X ONCE IV Last administered on at 23:28; Start 07/03/18 at 22:00; Stop 07/03/18 at 22:59; Status DC Ceftriaxone Sodium 50 ml @ 100 mls/hr 1X ONCE IV Last administered on at 23:28; Start 07/03/18 at 23:00; Stop 07/03/18 at 23:29; Status DC Dexamethasone Sodium Phosphate (Decadron) 10 mg 1X ONCE IV Last administered on 07/04/18at 00:22; Start 07/04/18 at 00:00; Stop 07/04/18 at 00:01; Status DC Ketorolac Tromethamine (Toradol 30mg Vial) 30 mg 1X ONCE IV Last administered on 07/04/18at 00:23; Start 07/04/18 at 00:00; Stop 07/04/18 at 00:01; Status DC Metoclopramide HCl (Reglan Vial) 10 mg 1X ONCE IV Last administered on at 00:22; Start 07/04/18 at 00:00; Stop 07/04/18 at 00:01; Status DC Diphenhydramine HCl (Benadryl) 50 mg 1X ONCE IVP Last administered on at 00:24; Start 07/04/18 at 00:00; Stop 07/04/18 at 00:01; Status DC Ondansetron HCl (Zofran) 4 mg PRN Q8HRS PRN IV NAUSEA/VOMITING 1ST CHOICE; Start 07/04/18 at 00:00; Stop 07/04/18 at 23:59; Status DC Acetaminophen (Tylenol) 650 mg PRN Q4HRS PRN PO FEVER; Start 07/04/18 at 00:00 ; Stop 07/04/18 at 23:59; Status DC Potassium Chloride (Klor-Con) 40 meq 1X ONCE PO Last administered on at 10:44; Start 07/04/18 at 10:30; Stop 07/04/18 at 10:31; Status DC Ketorolac Tromethamine (Toradol 30mg Vial) 30 mg PRN Q6HRS PRN IV PAIN Last administered on 07/06/18at 17:14; Start 07/04/18 at 10:15; Stop 07/09/18 at 10:14 Pantoprazole Sodium (Protonix) 40 mg DAILYAC PO Last administered on 07/06/18at 10:25; Start 07/04/18 at 14:30 Clonazepam (KlonoPIN) 0.5 mg BID PO Last administered on 07/07/18at 21:17; Start 07/04/18 at 15:00 Duloxetine HCl (Cymbalta) 30 mg DAILY PO Last administered on 07/06/18at 10:25; Start 07/04/18 at 15:00 Meclizine HCl (Antivert) 12.5 mg TID PO Last administered on 07/05/18at 15:17; Start 07/04/18 at 15:30; Stop 07/05/18 at 15:50; Status DC Meclizine HCl (Antivert) 12.5 mg 1X ONCE PO ; Start 07/04/18 at 15:15; Stop at 15:16; Status UNV Meclizine HCl (Antivert) 25 mg TID PO Last administered on 07/07/18at 21:17; Start 07/05/18 at 21:00 Sucralfate (Carafate) 1 gm QIDACHS PO Last administered on 07/07/18at 21:17; Start 07/06/18 at 13:00 Sodium Chloride 1,000 ml @ 1,000 mls/hr 1X ONCE IV Last administered on at 12:48; Start 07/07/18 at 13:00; Stop 07/07/18 at 13:59; Status DC Active Scripts Active Reported Multivitamins (Multivitamin) 1 Each Tablet 1 Each PO DAILY Vitamin D3 (Cholecalciferol (Vitamin D3)) 1,000 Unit Tablet 1,000 Unit PO DAILY Omeprazole 20 Mg Tablet.dr 20 Mg PO DAILY Vitals/I & O Vital Sign - Last 24 Hours 07/07/18 07/07/18 07/07/18 07/07/18 11:00 14:04 19:46 20:05 Temp 98.1 98.4 99.9 98.1 98.4 99.9 Pulse 52 53 66 Resp 16 16 18 B/P (MAP) 84/44 (57) 99/65 (76) 103/52 (69) Pulse Ox 99 95 98 O2 Delivery Room Air Room Air Room Air Room Air 07/07/18 07/08/18 07/08/18 23:05 03:37 07:00 Temp 97.5 97.6 98.1 97.5 97.6 98.1 Pulse 54 72 58 Resp 18 18 16 B/P (MAP) 104/55 (71) 93/54 (67) 102/60 (74) Pulse Ox 97 98 99 O2 Delivery Room Air Room Air Room Air Intake and Output 07/07/18 07/07/18 07/08/18 15:00 23:00 07:00 Intake Total 800 ml Balance 800 ml TEENA PALMER MD Jul 08, 2018 10:37
[2018-07-08] MEDS: SUCRALFATE 1 GM TABLET. PO SCH ×2 (11:30→14:17)
--- NOTE | 2018-07-08 12:41 | RAD ---
EXAM: Nuclear gastric emptying scan. HISTORY: Pain. COMPARISON: None. TECHNIQUE: Serial static images were obtained over the stomach following oral administration of 2.0 mCi of 99m-Tc sulfur colloid. FINDINGS: The stomach empties into the small bowel without evidence of reflux in the area of the esophagus. There is 0.2% retained tracer activity within the stomach at one hour, 12% retained tracer activity within the stomach at 2 hours, 9% retained tracer activity within the stomach at 3 hours, and 0% retained tracer activity within the stomach at 4 hours. The estimated time for half emptying of gastric contents, i.e. 'gastric emptying time' is under one hour (normal is 66 +/- 22 minutes). IMPRESSION: Normal gastric emptying half-time. Electronically signed by: Kathy Belle MD (07/08/2018 12:39 PM) [place] [id number]
[2018-07-08] MEDS: MECLIZINE HCL 12.5 MG TABLET. PO SCH ×2 (14:00→14:17)
--- NOTE | 2018-07-08 14:11 | PDOC ---
Subjective: Subjective: Left-sided neck, ear, and head pain. Objective: Objective: Per RN - has many non-GI related complaints including heart palpitations, wondering if she's in menopause, etc. Vital Signs: Vital Signs Date Time Temp Pulse Resp B/P (MAP) Pulse Ox O2 Delivery O2 Flow Rate FiO2 07/08/18 08:00 Room Air 07/08/18 07:00 98.1 58 16 102/60 (74) 99 98.1 Imaging: GES IMPRESSION: Normal gastric emptying half-time. CT A/P Impression: 1. There is no urolithiasis or hydronephrosis. 2. There is stable dilatation of the appendix without adjacent inflammatory change. PE: GEN: NAD LUNGS: CTAB HEART: RRR ABD: perhaps very mild epigastric discomfort NEURO/PSYCH: A & O 3 A/P: Upper abd pain Throat, ear, and head pain Palpitations -- GI complaints no longer her biggest concern. GI testing unrevealing except thickened GB wall. Continue PPI for GERD. RIVERA STAFFORD Jul 08, 2018 14:10
[2018-07-08] MEDS: DULoxetine HCL 30 MG CAPSULE.DR PO SCH (14:17)
[2018-07-08] MEDS: clonazePAM 0.5 MG TABLET PO SCH (14:17)
[2018-07-08] MEDS: PANTOPRAZOLE 40 MG TABLET.DR. PO SCH (14:17)
[2018-07-08] MEDS: KETOROLAC 30 MG/ML VIAL. IV PRN (14:25)
--- NOTE | 2018-07-08 14:28 | PDOC3 ---
Discharge Summary Date of Admission: Jul 04, 2018 Date of Discharge: Jul 08, 2018 Follow-Up: 3-5 days Admitting Diagnosis comment: Chief Complaint Chief Complaint 1-chest pain , enzymes neg, echo normal likely not cardiac 2-headache and dizziness, seen by neuro 3-epigastric pain and GERD even on PPI , FOLLOWING, GI 4-obesity 5- hypotension with episodes of flushing will check 24 h urine for 5HIAA to R/ O carcinoid 7-bradycardia , TSH normal 8- anxiety and depression started Cymbalta and clonazepam 9. LLQ discomfort radiating to LUQ plan ct abd and pelvis History of Present Illness History of Present Illness enzyme negative, echo ok , continue to have epigastric pain , abd US with thickening gallbladder wall, no stones PIPIDA scan, reviewed agrees that she is nervous and depressed ct abd neg GET OK PLAN MECLIZINE 25 NG PO TID HOME Vitals Vitals Vital Signs Date Time Temp Pulse Resp B/P (MAP) Pulse Ox O2 Delivery O2 Flow Rate FiO2 07/08/18 07:00 98.1 58 16 102/60 (74) 99 Room Air 98.1 Physical Exam General: Alert, Oriented X3, Cooperative, No acute distress, NO distress, ANXIOUS Heart: Regular rate, Normal S1, Normal S2, No murmurs Lungs: Clear Abdomen: Normal bowel sounds, Soft, Other (bowel sounds are present. Extremities: No clubbing, No cyanosis, No edema, Normal pulses Skin: No rashes, No breakdown FINAL DIAGNOSIS Problems Medical Problems: (1) Dizziness Status: Acute (2) Headache Status: Acute (3) Palpitations Status: Acute (4) UTI (urinary tract infection) Status: Acute Brief Hospital Course Ms. Padilla is a 43 old [sex] who presented with [ DIZZINESS, ABD PAIN] CONDITION AT DISCHARGE: Improved Discharge Medications Current Medications Aspirin (Children'S Aspirin) 324 mg 1X ONCE PO Last administered on 07/03/18at 23:28; Start 07/03/18 at 22:00; Stop 07/03/18 at 22:01; Status DC Sodium Chloride 1,000 ml @ 1,000 mls/hr 1X ONCE IV Last administered on at 23:28; Start 07/03/18 at 22:00; Stop 07/03/18 at 22:59; Status DC Ceftriaxone Sodium 50 ml @ 100 mls/hr 1X ONCE IV Last administered on at 23:28; Start 07/03/18 at 23:00; Stop 07/03/18 at 23:29; Status DC Dexamethasone Sodium Phosphate (Decadron) 10 mg 1X ONCE IV Last administered on 07/04/18at 00:22; Start 07/04/18 at 00:00; Stop 07/04/18 at 00:01; Status DC Ketorolac Tromethamine (Toradol 30mg Vial) 30 mg 1X ONCE IV Last administered on 07/04/18at 00:23; Start 07/04/18 at 00:00; Stop 07/04/18 at 00:01; Status DC Metoclopramide HCl (Reglan Vial) 10 mg 1X ONCE IV Last administered on at 00:22; Start 07/04/18 at 00:00; Stop 07/04/18 at 00:01; Status DC Diphenhydramine HCl (Benadryl) 50 mg 1X ONCE IVP Last administered on at 00:24; Start 07/04/18 at 00:00; Stop 07/04/18 at 00:01; Status DC Ondansetron HCl (Zofran) 4 mg PRN Q8HRS PRN IV NAUSEA/VOMITING 1ST CHOICE; Start 07/04/18 at 00:00; Stop 07/04/18 at 23:59; Status DC Acetaminophen (Tylenol) 650 mg PRN Q4HRS PRN PO FEVER; Start 07/04/18 at 00:00 ; Stop 07/04/18 at 23:59; Status DC Potassium Chloride (Klor-Con) 40 meq 1X ONCE PO Last administered on at 10:44; Start 07/04/18 at 10:30; Stop 07/04/18 at 10:31; Status DC Ketorolac Tromethamine (Toradol 30mg Vial) 30 mg PRN Q6HRS PRN IV PAIN Last administered on 07/06/18at 17:14; Start 07/04/18 at 10:15; Stop 07/09/18 at 10:14 Pantoprazole Sodium (Protonix) 40 mg DAILYAC PO Last administered on 07/08/18at 14:17; Start 07/04/18 at 14:30 Clonazepam (KlonoPIN) 0.5 mg BID PO Last administered on 07/08/18 14:17; Start 07/04/18 at 15:00 Duloxetine HCl (Cymbalta) 30 mg DAILY PO Last administered on 07/08/18at 14:17; Start 07/04/18 at 15:00 Meclizine HCl (Antivert) 12.5 mg TID PO Last administered on 07/05/18at 15:17; Start 07/04/18 at 15:30; Stop 07/05/18 at 15:50; Status DC Meclizine HCl (Antivert) 12.5 mg 1X ONCE PO ; Start 07/04/18 at 15:15; Stop at 15:16; Status UNV Meclizine HCl (Antivert) 25 mg TID PO Last administered on 07/08/18at 14:17; Start 07/05/18 at 21:00 Sucralfate (Carafate) 1 gm QIDACHS PO Last administered on 07/08/18at 14:17; Start 07/06/18 at 13:00 Sodium Chloride 1,000 ml @ 1,000 mls/hr 1X ONCE IV Last administered on at 12:48; Start 07/07/18 at 13:00; Stop 07/07/18 at 13:59; Status DC Active Scripts Active Reported Multivitamins (Multivitamin) 1 Each Tablet 1 Each PO DAILY Vitamin D3 (Cholecalciferol (Vitamin D3)) 1,000 Unit Tablet 1,000 Unit PO DAILY Omeprazole 20 Mg Tablet.dr 20 Mg PO DAILY Vital Signs Vital Signs Date Time Temp Pulse Resp B/P (MAP) Pulse Ox O2 Delivery O2 Flow Rate FiO2 07/08/18 08:00 Room Air 07/08/18 07:00 98.1 58 16 102/60 (74) 99 98.1 Labs Laboratory Tests Test 07/06/18 17:45 Erythrocyte Sedimentation Rate 8 (0-25) Allergies Allergies Coded Allergies Type Severity Reaction Last Updated Verified No Known Drug Allergies 06/06/17 No Disposition/Orders: D/C to Home Patient Instructions D/C PLANNING 40 MIN TEENA PALMER MD Jul 08, 2018 14:28
--- NOTE | 2018-07-08 14:29 | DISCH ---
DISCHARGE INSTRUCTIONS Condition on Discharge Condition on Discharge: Stable Activity After Discharge Activity Instructions for Disc: Resume previous activity Lifting Instructions after Dis: No heavy lifting, No pulling or pushing, Do not lift >10 pounds Exercise Instruction after Dis: Walk 10 min, 3 x per day Driving Instructions after Dis: Do not drive today Diet after Discharge Diet after Discharge: Regular Contacting the DR. after DC Call your doctor for: If your condition worsens TEENA PALMER MD Jul 08, 2018 14:29
[2018-07-08] MEDS ORDERED: DULO30CA2 PO (14:33)
[2018-07-08] MEDS ORDERED: MECL12.52 PO (14:33)
[2018-07-08] MEDS ORDERED: SUCR1TAB35 PO (14:33)
[2018-07-08 15:00] VITALS: BP 107/52
[2018-07-08 16:19] LABS: 5 HIAA URINE 0.9 mg/L (Undefined)
--- NOTE | 2018-07-08 17:13 | PDOC ---
PROGRESS NOTES Assessment Assessment Dizziness and light headiness for 2 weeks. Vertigo x 2 weeks. BPPV. Headache. UTI. DM. Hypokalemia. Anxiety. Obesity. Conversion disorder. RECOMMENDATIONS/PLAN: Meclizine 25 mg tid, can be discontinued after symptoms improved. Treat medical diseases. FU with PCP. HCT: negative. Carotid A US + Doppler: Normal study. HISTORY OF THE PRESENT ILLNESS: 43-y-old [place] origin female patient has been having symptoms of dizziness, vertigo, light headiness for about 2 weeks to come to the ER of [facility]. She was eventually admitted for further evaluation. She stated her symptoms were better in lying position, but worse in standing position and walking. No cranial, sensory or motor deficits. She complained different symptoms every day such as pain in her upper and lower gums, neck, mandibular area etc on 07/06. But no abnormalities found on exam. She complained numbness in her feet on 07/07. She complained left side lymph node hurt on 07/08, but her lymph nodes were small , soft and moveable. PAST MEDICAL HISTORY: Please see above. PAST SURGERY HISTORY: No major surgery recently. ALLERGY: NKDA MEDICATIONS: Refer to [facility] HISTORY: Non contributory. SOCIAL HISTORY: Lives at home. Denies smoking, drinking, and illicit drug use. REVIEW OF SYSTEMS: Constitutional:Obesity. Head: No traumatic brain or head injury. Skin: No edema, or rash. Ear: No infection. Eyes: No vision loss or color blindness. Nose: No bleeding or purulent discharges. Hearing: No hearing decrease. Neck: No injury. Breast: No history of cancer, masses,or discharges. Cardiac: No [place], arrhythmia. Pulmonary: No pneumonia, COPD. GI: No GI ulcer, GI bleeding. Urinary/genital: UTI. Endocrinologic: Diabetes Mellitus ? Skeletomuscular: No muscular atrophy, deformity. Neurological: see HP. Psychiatric: Denies drug use/abuse. Otherwise, not [id number] review of systems. PHYSICAL EXAMINATION: General appearance is in no acute distress. HEENT: Normocephalic and nontraumatic. Eyes, nose, ears, and throat are unremarkable. Neck is supple. No lymphadenopathy. No bruits are heard over the carotid artery. No crepitus. Cardiovascular: S1, S2, regular rate and rhythm. Pulmonary: Clear to auscultation bilaterally. Abdomen: Bowel sounds are positive. Abdomen is soft, nontender, and nondistended. Extremities: No rash, lesions, or edema. No restriction of range of motion NEUROLOGICAL EXAMINATION: Alert Oriented to time, place and person. PERRL. EOMI. CN: no focal findings. Muscle tone: within normal. Muscle strength: 5 DTR: 2 Plantar reflex: Flexor response bilaterally Gait: Normal. Sensory exam: no abnormal findings. No cerebellar signs elicited. F-T-N test accurate. Objective Objective Vital Signs Date Time Temp Pulse Resp B/P (MAP) Pulse Ox O2 Delivery O2 Flow Rate FiO2 07/08/18 15:00 98.0 58 16 107/52 (70) 99 Room Air 98.0 Intake and Output 07/08/18 07:00 Intake Total 800 ml Balance 800 ml Intake Oral 800 ml # Voids 5 Vitals Signs Vitals VS - Last 72 Hours, by Label Date Time Temp Pulse Resp B/P (MAP) Pulse Ox O2 Delivery O2 Flow Rate FiO2 07/08/18 15:00 98.0 58 16 107/52 (70) 99 Room Air 98.0 07/08/18 08:00 Room Air 07/08/18 07:00 98.1 58 16 102/60 (74) 99 Room Air 98.1 07/08/18 03:37 97.6 72 18 93/54 (67) 98 Room Air 97.6 07/07/18 23:05 97.5 54 18 104/55 (71) 97 Room Air 97.5 07/07/18 20:05 Room Air 07/07/18 19:46 99.9 66 18 103/52 (69) 98 Room Air 99.9 07/07/18 14:04 98.4 53 16 99/65 (76) 95 Room Air 98.4 07/07/18 11:00 98.1 52 16 84/44 (57) 99 Room Air 98.1 07/07/18 07:48 Room Air 07/07/18 07:00 97.6 58 16 94/49 (64) 100 Room Air 97.6 Laboratory Laboratory Microbiology 07/03/18 Urine Culture - Final, Complete 07/03/18 Urine Culture Result 1 (HOMA) - Final, Complete Comment Review of Relevant I have reviewed the following items dakotah (where applicable) has been applied. NICKY ESPARZA MD Jul 08, 2018 17:13
== END 2018-07-08 18:01 | disposition home or self-care (01) | DRG 690 ==
LOC: ER 20:47 → 6 SOUTH 07-04 00:07 → ER 07-04 00:23
PROVIDERS: ADMIT Internal Medicine; ATTEND Internal Medicine
DX: N39.0 Urinary tract infection, site not specified (principal); H81.10 Benign paroxysmal vertigo, unspecified ear; I95.9 Hypotension, unspecified; E03.9 Hypothyroidism, unspecified; E11.9 Type 2 diabetes mellitus without complications; E66.9 Obesity, unspecified; E87.6 Hypokalemia; F32.9 Major depressive disorder, single episode, unspecified; F41.9 Anxiety disorder, unspecified; F44.9 Dissociative and conversion disorder, unspecified; I10 Essential (primary) hypertension; I95.1 Orthostatic hypotension; J30.9 Allergic rhinitis, unspecified; R00.1 Bradycardia, unspecified; K21.9 Gastro-esophageal reflux disease without esophagitis; K76.0 Fatty (change of) liver, not elsewhere classified; R13.10 Dysphagia, unspecified; Z79.899 Other long term (current) drug therapy; Z87.440 Personal history of urinary (tract) infections; Z68.32 Body mass index [BMI] 32.0-32.9, adult
CPT/HCPCS: 36415; 70450; 71046; 74176; 76700; 78226; 78264; 80053; 80307; 81001; 81025; 82553; 83036; 83497; 83690; 83735; 83880; 84443; 84484; 85025; 85027; 85610; 85651; 87086; 93005; 93306; 93880; 96365; 96374; 96375; A9537; A9541; J0690; J1100; J1200; J1885; J2765; J7030; J8597; 99285-25; G0479

== ENCOUNTER → 2018-07-16 | Day surgery (SDC) | payer SELFPAY ==
[~2018-07-16] MED LIST: CHOL10003 PO; DULO30CA2 PO; FAMO20TA5 PO; FLUD0.1T PO; HYDROmorphone 2 MG/ML VIAL IV PRN; IV RINGERS,LACTATED 1000ML 1,000 ML IV SCH; LIDOCAINE 1% PF 2 ML VIAL. ID PRN; MAGN1TAB PO; MECL12.52 PO; MECL25TA3 PO; MORPHINE SULFATE 2 MG/ML VIAL. IV PRN; MULT1TAB52 PO; OMEP20TA8 PO; ONDANSETRON PF 4 MG/2 ML VIAL. IV PRN; PROCHLORPERAZINE 10 MG/2 ML VIAL. IV PRN; PROPOFOL 20 ML IV ONE; SUCR1TAB35 PO; fentaNYL PF VIAL 100 MCG/2 ML VIAL IV PRN
[2018-07-16 11:45] VITALS: BP 124/72
[2018-07-16 11:52] LABS: U PREG PATIENT NEGATIVE (NEG)
--- NOTE | 2018-07-17 15:07 | PATHOLOGY ---
[facility] Accession Number: [id number] . 01 Material submitted: . PART A: SMALL BOWEL BIOPSY PART B: GASTRIC ANTRUM BIOPSY PART C: DISTAL ESOPHAGUS BIOPSY PART D: MID ESOPHAGUS BIOPSY . 01 Clinical history: . Abdominal pain . 02 Diagnosis: A. Small bowel biopsies: - No significant pathologic abnormalities. . B. Gastric biopsies, antrum: - Chronic gastritis, mild. . C. Esophageal biopsies, distal esophagus: - Segments of hyperplastic squamous esophageal mucosa and gastric mucosa showing focal mild chronic inflammation, consistent with reflux esophagitis. . D. Esophageal biopsy, middle esophagus: - Segment of normal squamous esophageal mucosa identified. [facility]/07/17/2018 . 02 Comment: Sections of the small bowel biopsy reveal segments of duodenal and small intestinal mucosa. Where best oriented, the mucosal villi show no sprue-like changes or significant inflammatory changes. Sections of the gastric antral biopsy show congestion and mild chronic inflammation. A properly-controlled immunoperoxidase stain for Helicobacter is negative for Helicobacter organisms. Sections of the distal esophageal biopsy reveal segments of hyperplastic squamous esophageal mucosa with focally contiguous and separate segments of gastric mucosa showing focal mild chronic inflammation. The findings are consistent with reflux esophagitis. There is no evidence of Singh's change, dysplasia, or malignancy. Sections of the middle esophagus biopsy reveal a segment of normal squamous esophageal mucosa. . Special stain (B1): Immunoperoxidase stain for Helicobacter . (JPM:mml; 07/17/18) . 02 Electronically signed: . Marck Espinla MD, Pathologist NPI- [id number] . 01 Gross description: . A. Received in formalin labeled "RandyTamara hernandeza, small bowel BX," are 3 segments of dinero soft tissue measuring 0.6 x 0.4 x 0.2 cm in aggregate dimensions and ranging from 0.2 to 0.3 cm in maximum dimension. The specimen is submitted entirely in cassette A1. . B. Received in formalin labeled "Ariana Padilla, gastric antrum BX," are 2 segments of dinero soft tissue measuring 0.6 x 0.3 x 0.3 cm in aggregate dimensions and measuring 0.3 cm each in maximum dimension. The specimen is submitted entirely in cassette B1. . C. Received in formalin labeled "Ariana Padilla, distal esophagus BX," are 2 segments of dinero soft tissue measuring 0.8 x 0.3 x 0.3 cm in aggregate dimensions and ranging from 0.3 to 0.5 cm in maximum dimension. The specimen is submitted entirely in cassette C1. . D. Received in formalin labeled "Ariana Padilla, mid esophagus BX," is a single segment of dinero soft tissue measuring 0.4 cm in maximum dimension. The specimen is entirely submitted in cassette D1. (TSD; 07/16/2018) TOB/TOB . 02 Pathologist provided ICD-10: K29.50, K21.0 . 02 CPT . 077617, 279759, [id number], [id number], [id number] Performed at: 01 [facility] [address], [place] [id number] MD Collin Fuller MD Phone: [phone] Performed at: 02 [facility] [address] [place], [place] [id number] MD Marck Espinal MD Phone: [phone]
== END | disposition home or self-care (01) ==
LOC: ENDOS 10:27
PROVIDERS: ATTEND Internal Medicine Gastroenterology
DX: K21.0 Gastro-esophageal reflux disease with esophagitis (principal); K44.9 Diaphragmatic hernia without obstruction or gangrene; K29.50 Unspecified chronic gastritis without bleeding; F41.9 Anxiety disorder, unspecified; D64.9 Anemia, unspecified; G47.30 Sleep apnea, unspecified; Z83.3 Family history of diabetes mellitus; Z82.49 Family history of ischemic heart disease and other diseases of the circulatory system; Z79.899 Other long term (current) drug therapy
CPT/HCPCS: 43239; 43450; 81025; J2704

== ENCOUNTER 2019-04-02 21:24 | Inpatient (IN) | payer SELFPAY ==
[~2019-04-02] VITALS: Ht 149.9 cm; Wt 77.1 kg
[~2019-04-02 21:24] MED LIST changes: -HYDROmorphone 2 MG/ML VIAL IV PRN; -IV RINGERS,LACTATED 1000ML 1,000 ML IV SCH; -LIDOCAINE 1% PF 2 ML VIAL. ID PRN; -MORPHINE SULFATE 2 MG/ML VIAL. IV PRN; -ONDANSETRON PF 4 MG/2 ML VIAL. IV PRN; -PROCHLORPERAZINE 10 MG/2 ML VIAL. IV PRN; -PROPOFOL 20 ML IV ONE; -fentaNYL PF VIAL 100 MCG/2 ML VIAL IV PRN
[2019-04-02 21:55] LABS: BASO # 0.1 x10^3/uL (0.0-0.2); BASO % 1 % (0-3); EOS # 0.6 x10^3/uL (0.0-0.7); EOS % 7 % (0-3); HEMATOCRIT 32.7 % (36.0-47.0); LYMPH % 45 % (24-48); MEAN CORPUSCULAR HEMOGLOBIN 22 pg (25-35); MEAN CORPUSCULAR HGB CONC 31 g/dL (31-37); MEAN CORPUSCULAR VOLUME 71 fL (79-100); MONO # 0.8 x10^3/uL (0.0-1.1); MONO % 9 % (0-9); NEUT # 3.5 x10^3uL (1.8-7.7); NEUT % 39 % (31-73); PLATELET COUNT 417 x10^3/uL (140-400); RED BLOOD COUNT 4.64 x10^6/uL (3.50-5.40); RED CELL DISTRIBUTION WIDTH 18.8 % (11.5-14.5)
[2019-04-02] MEDS ORDERED: ASPIRIN 325 MG TABLET PO ONE (22:00)
[2019-04-02] MEDS ORDERED: IV NORMAL SALINE 1000ML BAG 1,000 ML IV ONE (22:00)
[2019-04-02 22:05] LABS: CALCIUM 9.3 mg/dL (8.5-10.1); CREATININE 0.7 mg/dL (0.6-1.0); GFR 90.5; POTASSIUM 3.2 mmol/L (3.5-5.1); PROTHROMBIN TIME PATIENT 12.8 SEC (11.7-14.0)
[2019-04-02 22:11] LABS: ALBUMIN 3.6 g/dL (3.4-5.0); ALBUMIN/GLOBULIN RATIO 0.9 (1.0-1.7); MAGNESIUM 1.9 mg/dL (1.8-2.4); TOTAL BILIRUBIN 0.2 mg/dL (0.2-1.0); TOTAL PROTEIN 7.7 g/dL (6.4-8.2)
[2019-04-02] MEDS ORDERED: KETOROLAC 15 MG/ML VIAL. IV ONE (22:15)
[2019-04-02] MEDS ORDERED: DEXAMETHASONE SOD PHOS 4 MG/ML VIAL IV ONE (22:15)
[2019-04-02] MEDS ORDERED: DEXAMETHASONE SOD PHOS 20 MG/5 ML VIAL. IV ONE (22:15)
--- NOTE | 2019-04-02 22:27 | PHYS DOC ---
Past Medical History Past Medical History: Anemia, GERD, Hypothyroid Additional Past Medical Histor: PRE DIABETIC Past Surgical History: Other Additional Past Surgical Histo: neck fusion Alcohol Use: None Drug Use: None Adult General Chief Complaint Chief Complaint: CHEST PAIN HPI HPI Patient is a 44 year old female who presents with 3 months of intermittent chest pain. She is predominantly Chinese speaking and her daughters are able to help translate. She states that the pain usually comes on once a week however today it happened this morning as well as at 2000 tonight. The pain is intermittent lasting 10 to 15 minutes at a time and is not associated with exertion although it is more likely to occur when the patient is sitting or laying down. She describes the chest pain as a sharp stabbing pain that comes as "three stabbing pains at a time" most notable at left sternal border. During this episodes she also has hot and cold sensations that up into her neck, face and left LE. Her feet and hands feel warm and sweating during this time. She feels short of breath and faint when it occurs but experiences no nausea, vomiting, or worsening with exertion. Patient is only experiencing the left stabbing chest pain worsened by movement at this time. She is currently on her menstrual period and states they have become increasing irregular. HPI obtained with help of patient's two daughters who were able to translate on specific aspects of conversation. Review of Systems Review of Systems Constitutional: Denies fever or chills [] Eyes: Denies blurred vision or diplopia [] HENT: Denies nasal congestion or sore throat [] Respiratory: Reports episodic shortness of breath. Denies cough or hemoptysis. [] Cardiovascular: Reports episodic chest pain and feeling faint. Denies palpitations. [] GI: Denies abdominal pain, nausea, vomiting, or diarrhea [] : Denies dysuria or hematuria [] Musculoskeletal: Reports feeling clinical sales consultant her hand and feet during events [] Integument: Denies rash or skin lesions [] Neurologic: Denies headache, focal weakness or sensory changes [] Complete review of systems found to be within normal limits, except as documented in this note. Current Medications Current Medications Current Medications Medications (Trade) Dose Ordered Sig/Laurel Start Time Stop Time Status Last Admin Dose Admin Aspirin (Milton Aspirin) 325 mg 1X ONCE 04/02/19 22:00 04/02/19 22:01 DC 04/02/19 22:13 325 MG Cyclobenzaprine HCl (Flexeril) 10 mg 1X ONCE 04/02/19 23:30 04/02/19 23:31 DC 04/02/19 23:50 10 MG Dexamethasone Sodium Phosphate (Decadron) 10 mg 1X ONCE 04/02/19 22:15 04/02/19 22:16 DC Dextrose (Dextrose 50%-Water Syringe) 12.5 gm PRN Q15MIN PRN 04/03/19 00:45 Insulin Human Lispro (HumaLOG) 0-5 UNITS TIDWMEALS 04/03/19 08:00 UNV Ketorolac Tromethamine (Toradol 15mg Vial) 15 mg 1X ONCE 04/02/19 22:15 04/02/19 22:16 DC 04/02/19 22:13 15 MG Ondansetron HCl (Zofran) 4 mg PRN Q8HRS PRN 04/03/19 00:45 04/04/19 00:44 Potassium Chloride (Klor-Con) 40 meq 1X ONCE 04/03/19 00:30 04/03/19 00:31 DC 04/03/19 01:13 40 MEQ Sodium Chloride 1,000 ml @ 1,000 mls/hr 1X ONCE 04/02/19 22:00 04/02/19 22:59 DC 04/02/19 22:13 1,000 MLS/HR Allergies Allergies Allergies Coded Allergies Type Severity Reaction Last Updated Verified No Known Drug Allergies 07/16/18 No Physical Exam Physical Exam Constitutional: Obese, pleasant female in no acute distress, non-toxic appearance. [] HENT: Normocephalic, atraumatic, oropharynx moist, no oral exudates, nose normal. [] Eyes: EOMI, conjunctiva normal, no discharge. [] Neck: Supple without lymphadenopathy [] Cardiovascular: Heart rate regular rhythm, no murmur. Chest wall tender to palpation at left sternal border. Ribs tender to palpation on posterior left side. [] Lungs & Thorax: Bilateral breath sounds clear to auscultation [] Abdomen: Soft and nontender. [] Skin: Warm, dry, no erythema, no rash. [] Back: Diffusely tender to palpation, no CVA tenderness [] Extremities: Radial pulses +2 b/l, cap refill < 2 seconds [] Neurologic: Alert and oriented, normal motor function, normal sensory function, no focal deficits noted. [] Current Patient Data Vital Signs Vital Signs Date Time Temp Pulse Resp B/P (MAP) Pulse Ox O2 Delivery O2 Flow Rate FiO2 04/03/19 00:08 70 18 107/52 (70) 98 Room Air 04/02/19 21:32 97.7 97.7 Lab Values Laboratory Tests Test 04/02/19 21:38 04/02/19 21:52 04/02/19 23:50 White Blood Count 9.0 x10^3/uL (4.0-11.0) Red Blood Count 4.64 x10^6/uL (3.50-5.40) Hemoglobin 10.0 g/dL (12.0-15.5) L Hematocrit 32.7 % (36.0-47.0) L Mean Corpuscular Volume 71 fL (79-100) L Mean Corpuscular Hemoglobin 22 pg (25-35) L Mean Corpuscular Hemoglobin Concent 31 g/dL (31-37) Red Cell Distribution Width 18.8 % (11.5-14.5) H Platelet Count 417 x10^3/uL (140-400) H Neutrophils (%) (Auto) 39 % (31-73) Lymphocytes (%) (Auto) 45 % (24-48) Monocytes (%) (Auto) 9 % (0-9) Eosinophils (%) (Auto) 7 % (0-3) H Basophils (%) (Auto) 1 % (0-3) Neutrophils # (Auto) 3.5 x10^3uL (1.8-7.7) Lymphocytes # (Auto) 4.0 x10^3/uL (1.0-4.8) Monocytes # (Auto) 0.8 x10^3/uL (0.0-1.1) Eosinophils # (Auto) 0.6 x10^3/uL (0.0-0.7) Basophils # (Auto) 0.1 x10^3/uL (0.0-0.2) Platelet Estimate Increased (ADEQUATE) Polychromasia Slight Hypochromasia Slight Anisocytosis Slight Ovalocytes Occ Prothrombin Time 12.8 SEC (11.7-14.0) Prothrombin Time INR 1.0 (0.8-1.1) Sodium Level 139 mmol/L (136-145) Potassium Level 3.2 mmol/L (3.5-5.1) L Chloride Level 102 mmol/L (98-107) Carbon Dioxide Level 25 mmol/L (21-32) Anion Gap 12 (6-14) Blood Urea Nitrogen 13 mg/dL (7-20) Creatinine 0.7 mg/dL (0.6-1.0) Estimated GFR (Cockcroft-Gault) 90.5 BUN/Creatinine Ratio 19 (6-20) Glucose Level 131 mg/dL (70-99) H Calcium Level 9.3 mg/dL (8.5-10.1) Magnesium Level 1.9 mg/dL (1.8-2.4) Total Bilirubin 0.2 mg/dL (0.2-1.0) Aspartate Amino Transferase (AST) 28 U/L (15-37) Alanine Aminotransferase (ALT) 32 U/L (14-59) Alkaline Phosphatase 89 U/L (46-116) Creatine Kinase 146 U/L (26-192) Creatine Kinase MB (Mass) 1.1 ng/mL (0.0-3.6) Creatine Kinase MB Relative Index 0.8 % (0-4) Troponin I Quantitative < 0.017 ng/mL (0.000-0.055) < 0.017 ng/mL (0.000-0.055) HM-Cvv-P-Type Natriuretic Peptide 61 pg/mL (0-124) Total Protein 7.7 g/dL (6.4-8.2) Albumin 3.6 g/dL (3.4-5.0) Albumin/Globulin Ratio 0.9 (1.0-1.7) L Lipase 148 U/L (73-393) POC Urine HCG, Qualitative Hcg negative (Negative) Laboratory Tests 04/02/19 21:38 Laboratory Tests 04/02/19 21:38 EKG EKG @2133: Normal sinus rhythm with rate of 74. Nonpathologic Q wave in aVL. U waves present. T wave inversion in III. No ST segment elevation or depression.[] Radiology/Procedures Radiology/Procedures PROCEDURE: CHEST PA & LATERAL PA and lateral chest radiographs 04/02/2019 CLINICAL HISTORY: Chest pain. PA and lateral digital radiographs of the chest were obtained. Comparison study is dated 07/03/2018. The cardiac silhouette is borderline enlarged. The thoracic aorta is mildly tortuous. No acute pulmonary infiltrate is seen. No pleural effusion or pneumothorax is noted. Minimal degenerative changes are seen involving the thoracic spine. IMPRESSION: No acute abnormality is seen. Electronically signed by: Iron Landeros MD (04/03/2019 12:32 AM) [facility][] Course & Med Decision Making Course & Med Decision Making Pertinent Labs and Imaging studies reviewed. (See chart for details) Patient is a 44 year old female who presents with concerns regarding chest pain that has happened once a week for the past three months. Pain is pleuritic, position and tender to palpation. EKG showed no evidence of coronary ischemia. Troponin and repeat both negative. CK-MB negative. Pro-BNP within normal limits. Chest X-ray showed no evidence of acute cardiopulmonary process. CBC showed microcytic anemia with hemoglobin of 10. Patient has a history of iron deficient anemia. Hypokalemia with K of 3.2. Blood glucose 131. Urine HCG negative. Discu ssed with patient that the results of her workup are reassuring for etiologies of acute process to be less likely however she expressed increased concern with the sensation of paresthesias in her b/l LE. She stated that she did not feel well and the option was presented for further evaluation of her paresthesias on an inpatient basis. Patient requiring admission for further evaluation and treatment. Discussed with Dr. Dickens who is in agreement with admission. Discussed findings and plan with patient and family, who acknowledge understanding and agreement. [] Dragon Disclaimer Dragon Disclaimer This electronic medical record was generated, in whole or in part, using a voice recognition dictation system. Departure Departure Impression: Primary Impression: Atypical chest pain Additional Impression: Hypokalemia Disposition: ADMITTED INPATIENT Admitting Physician: Other (Chrissie) Condition: STABLE Referrals: UNKNOWN PCP NAME (PCP) PERC Rule for PE PERC Rule for PE PERC Rule for PE Response (Comments) Value Age > 50: No 0 HR > 100: No 0 Sa02 on room air <95%: No 0 Unilateral leg swelling: No 0 Hemoptysis: No 0 Recent surgery or trauma: No 0 Prior PE or DVT: No 0 Hormone use: No 0 Total 0 The HEART Score for CP Pts HEART Score for Chest Pain: HEART Score for Chest Pain Response (Comments) Value History Slighlty/Non-Suspicious 0 ECG Normal 0 Age >45 - < 65 1 Risk Factors 1 or 2 Risk Factors 1 Troponin < Normal Limit 0 Total 2 Risk Factors: Risk Factors: DM, Current or recent (<one month) smoker, HTN, HLP, family history of CAD, obesity. Risk Scores: Score 0 - 3: 2.5% MACE over next 6 weeks - Discharge Home Score 4 - 6: 20.3% MACE over next 6 weeks - Admit for Clinical Observation Score 7 - 10: 72.7% MACE over next 6 weeks - Early Invasive Strategies Problem Qualifiers ESVIN DE PAZ DO April 02, 2019 22:27
[2019-04-02 22:39] LABS: ANISOCYTOSIS SLIGHT; HYPOCHROMIA SLIGHT; OVALOCYTES OCC; PLT ESTIMATE INCREASED (ADEQUATE); POLYCHROMASIA SLIGHT
[2019-04-02] MEDS ORDERED: CYCLOBENZAPRINE 10 MG TABLET. PO ONE (23:30)
[2019-04-03] MEDS ORDERED: ORPH100T PO (00:26)
[2019-04-03] MEDS ORDERED: PRED20TA PO (00:26)
[2019-04-03] MEDS ORDERED: POTASSIUM CHLORIDE 20 MEQ TABLET.ER. PO ONE ×2 (00:30→08:00)
--- NOTE | 2019-04-03 00:36 | RAD ---
PA and lateral chest radiographs 04/02/2019 CLINICAL HISTORY: Chest pain. PA and lateral digital radiographs of the chest were obtained. Comparison study is dated 07/03/2018. The cardiac silhouette is borderline enlarged. The thoracic aorta is mildly tortuous. No acute pulmonary infiltrate is seen. No pleural effusion or pneumothorax is noted. Minimal degenerative changes are seen involving the thoracic spine. IMPRESSION: No acute abnormality is seen. Electronically signed by: Iron Landeros MD (04/03/2019 12:32 AM) [facility]
[2019-04-03] MEDS ORDERED: DEXTROSE 50% 25 GM / 50ML DISP.SYRIN. IV PRN (00:45)
[2019-04-03] MEDS ORDERED: ONDANSETRON PF 4 MG/2 ML VIAL. IV PRN (00:45)
[2019-04-03 07:00] VITALS: BP 90/37
[2019-04-03] MEDS: INSULIN LISPRO 300 UNITS/3 ML INSULN.PEN. SQ SCH ×2 (08:00→12:00)
[2019-04-03 08:14] LABS: CALCIUM 8.9 mg/dL (8.5-10.1); CREATININE 0.7 mg/dL (0.6-1.0); GFR 90.5; POTASSIUM 4.8 mmol/L (3.5-5.1)
[2019-04-03] MEDS ORDERED: FERR325T14 PO (09:20)
[2019-04-03] MEDS ORDERED: LEVO25TA4 PO (09:22)
[2019-04-03] MEDS ORDERED: tiZANidine 4 MG TABLET. PO PRN (10:00)
[2019-04-03 10:44] VITALS: BP 94/40
[2019-04-03] MEDS ORDERED: MELO7.5T29 PO (11:03)
[2019-04-03] MEDS ORDERED: TIZA4TAB PO (11:03)
--- NOTE | 2019-04-03 11:13 | PDOC1 ---
History and Physical Date of Admission Date of Admission 04/03/2019 Identification/Chief Complaint Chief Complaint Sharp pain in my chest Source Source: Chart review, Patient History of Present Illness History of Present Illness Patient is a 44-year-old female with past medical history of hypothyroidism who was in her usual state of health until she relates several months prior to her ER visit of chest discomfort intermittently. Patient describes her symptoms as a stabbing sensation over the precordial area sometimes radiating to the back sometimes radiating into her head with a cold sensation and sometimes radiating down her left side to the arm and her leg. The symptoms don't seem to be consistent patient denies sensation of impending doom no diaphoresis reported with the events. Usually lasts seconds and they are not triggered by exercise exertion not associated with food intake either. The patient denies nausea or vomiting associated with her discomfort. The patient denies recent sick contacts no cold-like symptoms no cough or sputum production no pleurisy was reported. The patient does say that the pain is reproducible whenever she touches the area of surgery "jolt" that scares her and given that she had 3 episodes yesterday Concerned and decided to consult the emergency department. She did not percent hemodynamic instability the patient did not percent elevated troponin upon initial assessment the emergency department and no EKG changes. Chest x-ray did not show acute cardiopulmonary processes evident Patient at the time my evaluation is laying in bed in no apparent distress but as the interview moved on the patient seemed to be more agitated and anxious as I was according to her the benign nature of her workup. Reassurance was provided reassurance to admit the patient for chest pain rule out Past Medical History Cardiovascular: HTN Pulmonary: Asthma CENTRAL NERVOUS SYSTEM: Carpal Tunnel Syndrome GI: Constipation Heme/Onc: No pertinent hx Hepatobiliary: No pertinent hx Psych: Anxiety, Depression Renal/: UTI Endocrine: Hypothyroidism Past Surgical History Past Surgical History: No pertinent history Family History Family History: Other (no cardiac family history) Social History ALCOHOL: rare Drugs: None Current Problem List Problem List Problems Medical Problems: (1) Atypical chest pain Status: Acute (2) Hypokalemia Status: Acute Current Medications Current Medications Current Medications Medications (Trade) Dose Ordered Sig/Laurel Start Time Stop Time Status Last Admin Dose Admin Aspirin (Milton Aspirin) 325 mg 1X ONCE 04/02/19 22:00 04/02/19 22:01 DC 04/02/19 22:13 325 MG Cyclobenzaprine HCl (Flexeril) 10 mg 1X ONCE 04/02/19 23:30 04/02/19 23:31 DC 04/02/19 23:50 10 MG Dexamethasone Sodium Phosphate (Decadron) 10 mg 1X ONCE 04/02/19 22:15 04/02/19 22:16 DC Dextrose (Dextrose 50%-Water Syringe) 12.5 gm PRN Q15MIN PRN 04/03/19 00:45 Insulin Human Lispro (HumaLOG) 0-5 UNITS TIDWMEALS 04/03/19 08:00 Ketorolac Tromethamine (Toradol 15mg Vial) 15 mg 1X ONCE 04/02/19 22:15 04/02/19 22:16 DC 04/02/19 22:13 15 MG Meloxicam (Mobic) 7.5 mg DAILY 04/04/19 09:00 Ondansetron HCl (Zofran) 4 mg PRN Q8HRS PRN 04/03/19 00:45 04/04/19 00:44 Potassium Chloride (Klor-Con) 40 meq 1X ONCE 04/03/19 08:00 04/03/19 08:01 DC 04/03/19 09:17 40 MEQ Sodium Chloride 1,000 ml @ 1,000 mls/hr 1X ONCE 04/02/19 22:00 04/02/19 22:59 DC 04/02/19 22:13 1,000 MLS/HR Tizanidine HCl (Zanaflex) 4 mg PRN Q8HRS PRN 04/03/19 10:00 Allergies Allergies Allergies Coded Allergies Type Severity Reaction Last Updated Verified No Known Drug Allergies 07/16/18 No ROS Review of System CONSTITUTIONAL: No fever or chills EYES: No recent changes SKIN: No rash or itching CARDIOVASCULAR: as per hpi chest pain, no syncope, palpitations, + edema NO PND or orthopnea RESPIRATORY: No SOB or cough GASTROINTESTINAL: No nausea, vomiting or abdominal pain NEUROLOGICAL: No headaches or weakness ENDOCRINE: No cold or heat intolerance GENITOURINARY: No urgency or frequency of urination MUSCULOSKELETAL: No back pain or joint pain LYMPHATICS: No enlarged lymph nodes PSYCHIATRIC: No anxiety or depression Physical Exam Physical Exam Gen.: well-developed obese in no apparent distress Head: Normal shape atraumatic Eyes: Pupils equal reactive to light and accommodation, normal conjunctivae and lids Ears: Normal shape Nose: Normal shape no trauma Mouth: No exudates of the back of throat no thrush no lesions Neck: Supple no JVD no carotid bruit or lymphadenopathy no thyromegaly Chest: Lungs clear to auscultation with good inspiratory effort no crackles rales or rhonchi Cardiovascular: S1-S2 regular rhythm no murmurs gallops or rubs Abdomen: Bowel sounds present soft nontender no hepatosplenomegaly appreciated sign Extremities: No clubbing no cyanosis no edema peripheral pulses palpated bilaterally Neurological: Alert awake oriented in person time place and situation, cranial nerves II through XII intact, no motor or sensory deficits appreciated Psych: Appropriate mood, cooperative Vitals Vitals Vital Signs Date Time Temp Pulse Resp B/P (MAP) Pulse Ox O2 Delivery O2 Flow Rate FiO2 04/03/19 10:44 98.1 64 16 94/40 (58) 98 Room Air 98.1 Labs Labs Laboratory Tests Test 04/02/19 21:38 04/02/19 21:52 04/02/19 23:50 04/03/19 04:00 White Blood Count 9.0 x10^3/uL (4.0-11.0) Red Blood Count 4.64 x10^6/uL (3.50-5.40) Hemoglobin 10.0 g/dL (12.0-15.5) Hematocrit 32.7 % (36.0-47.0) Mean Corpuscular Volume 71 fL (79-100) Mean Corpuscular Hemoglobin 22 pg (25-35) Mean Corpuscular Hemoglobin Concent 31 g/dL (31-37) Red Cell Distribution Width 18.8 % (11.5-14.5) Platelet Count 417 x10^3/uL (140-400) Neutrophils (%) (Auto) 39 % (31-73) Lymphocytes (%) (Auto) 45 % (24-48) Monocytes (%) (Auto) 9 % (0-9) Eosinophils (%) (Auto) 7 % (0-3) Basophils (%) (Auto) 1 % (0-3) Neutrophils # (Auto) 3.5 x10^3uL (1.8-7.7) Lymphocytes # (Auto) 4.0 x10^3/uL (1.0-4.8) Monocytes # (Auto) 0.8 x10^3/uL (0.0-1.1) Eosinophils # (Auto) 0.6 x10^3/uL (0.0-0.7) Basophils # (Auto) 0.1 x10^3/uL (0.0-0.2) Platelet Estimate Increased (ADEQUATE) Polychromasia Slight Hypochromasia Slight Anisocytosis Slight Ovalocytes Occ Prothrombin Time 12.8 SEC (11.7-14.0) Prothromb Time International Ratio 1.0 (0.8-1.1) Sodium Level 139 mmol/L (136-145) Potassium Level 3.2 mmol/L (3.5-5.1) Chloride Level 102 mmol/L (98-107) Carbon Dioxide Level 25 mmol/L (21-32) Anion Gap 12 (6-14) Blood Urea Nitrogen 13 mg/dL (7-20) Creatinine 0.7 mg/dL (0.6-1.0) Estimated GFR (Cockcroft-Gault) 90.5 BUN/Creatinine Ratio 19 (6-20) Glucose Level 131 mg/dL (70-99) Calcium Level 9.3 mg/dL (8.5-10.1) Magnesium Level 1.9 mg/dL (1.8-2.4) Total Bilirubin 0.2 mg/dL (0.2-1.0) Aspartate Amino Transf (AST/SGOT) 28 U/L (15-37) Alanine Aminotransferase (ALT/SGPT) 32 U/L (14-59) Alkaline Phosphatase 89 U/L (46-116) Creatine Kinase 146 U/L (26-192) Creatine Kinase MB (Mass) 1.1 ng/mL (0.0-3.6) Creatine Kinase MB Relative Index 0.8 % (0-4) Troponin I Quantitative < 0.017 ng/mL (0.000-0.055) < 0.017 ng/mL (0.000-0.055) < 0.017 ng/mL (0.000-0.055) VT-Cjy-X-Type Natriuretic Peptide 61 pg/mL (0-124) Total Protein 7.7 g/dL (6.4-8.2) Albumin 3.6 g/dL (3.4-5.0) Albumin/Globulin Ratio 0.9 (1.0-1.7) Lipase 148 U/L (73-393) Bedside Urine HCG, Qualitative Hcg negative (Negative) Test 04/03/19 06:50 04/03/19 07:04 Sodium Level 140 mmol/L (136-145) Potassium Level 4.8 mmol/L (3.5-5.1) Chloride Level 108 mmol/L (98-107) Carbon Dioxide Level 20 mmol/L (21-32) Anion Gap 12 (6-14) Blood Urea Nitrogen 13 mg/dL (7-20) Creatinine 0.7 mg/dL (0.6-1.0) Estimated GFR (Cockcroft-Gault) 90.5 Glucose Level 161 mg/dL (70-99) Calcium Level 8.9 mg/dL (8.5-10.1) Troponin I Quantitative < 0.017 ng/mL (0.000-0.055) Glucose (Fingerstick) 164 mg/dL (70-99) Laboratory Tests Test 04/02/19 21:38 04/02/19 21:52 04/02/19 23:50 04/03/19 04:00 White Blood Count 9.0 x10^3/uL (4.0-11.0) Red Blood Count 4.64 x10^6/uL (3.50-5.40) Hemoglobin 10.0 g/dL (12.0-15.5) Hematocrit 32.7 % (36.0-47.0) Mean Corpuscular Volume 71 fL (79-100) Mean Corpuscular Hemoglobin 22 pg (25-35) Mean Corpuscular Hemoglobin Concent 31 g/dL (31-37) Red Cell Distribution Width 18.8 % (11.5-14.5) Platelet Count 417 x10^3/uL (140-400) Neutrophils (%) (Auto) 39 % (31-73) Lymphocytes (%) (Auto) 45 % (24-48) Monocytes (%) (Auto) 9 % (0-9) Eosinophils (%) (Auto) 7 % (0-3) Basophils (%) (Auto) 1 % (0-3) Neutrophils # (Auto) 3.5 x10^3uL (1.8-7.7) Lymphocytes # (Auto) 4.0 x10^3/uL (1.0-4.8) Monocytes # (Auto) 0.8 x10^3/uL (0.0-1.1) Eosinophils # (Auto) 0.6 x10^3/uL (0.0-0.7) Basophils # (Auto) 0.1 x10^3/uL (0.0-0.2) Platelet Estimate Increased (ADEQUATE) Polychromasia Slight Hypochromasia Slight Anisocytosis Slight Ovalocytes Occ Prothrombin Time 12.8 SEC (11.7-14.0) Prothromb Time International Ratio 1.0 (0.8-1.1) Sodium Level 139 mmol/L (136-145) Potassium Level 3.2 mmol/L (3.5-5.1) Chloride Level 102 mmol/L (98-107) Carbon Dioxide Level 25 mmol/L (21-32) Anion Gap 12 (6-14) Blood Urea Nitrogen 13 mg/dL (7-20) Creatinine 0.7 mg/dL (0.6-1.0) Estimated GFR (Cockcroft-Gault) 90.5 BUN/Creatinine Ratio 19 (6-20) Glucose Level 131 mg/dL (70-99) Calcium Level 9.3 mg/dL (8.5-10.1) Magnesium Level 1.9 mg/dL (1.8-2.4) Total Bilirubin 0.2 mg/dL (0.2-1.0) Aspartate Amino Transf (AST/SGOT) 28 U/L (15-37) Alanine Aminotransferase (ALT/SGPT) 32 U/L (14-59) Alkaline Phosphatase 89 U/L (46-116) Creatine Kinase 146 U/L (26-192) Creatine Kinase MB (Mass) 1.1 ng/mL (0.0-3.6) Creatine Kinase MB Relative Index 0.8 % (0-4) Troponin I Quantitative < 0.017 ng/mL (0.000-0.055) < 0.017 ng/mL (0.000-0.055) < 0.017 ng/mL (0.000-0.055) KU-Tbb-I-Type Natriuretic Peptide 61 pg/mL (0-124) Total Protein 7.7 g/dL (6.4-8.2) Albumin 3.6 g/dL (3.4-5.0) Albumin/Globulin Ratio 0.9 (1.0-1.7) Lipase 148 U/L (73-393) Bedside Urine HCG, Qualitative Hcg negative (Negative) Test 04/03/19 06:50 04/03/19 07:04 Sodium Level 140 mmol/L (136-145) Potassium Level 4.8 mmol/L (3.5-5.1) Chloride Level 108 mmol/L (98-107) Carbon Dioxide Level 20 mmol/L (21-32) Anion Gap 12 (6-14) Blood Urea Nitrogen 13 mg/dL (7-20) Creatinine 0.7 mg/dL (0.6-1.0) Estimated GFR (Cockcroft-Gault) 90.5 Glucose Level 161 mg/dL (70-99) Calcium Level 8.9 mg/dL (8.5-10.1) Troponin I Quantitative < 0.017 ng/mL (0.000-0.055) Glucose (Fingerstick) 164 mg/dL (70-99) VTE Prophylaxis Ordered VTE Prophylaxis Devices: No VTE Pharmacological Prophylaxi: No Assessment/Plan Assessment/Plan Chest pain ruled out ACS/ musculoskeletal in nature most likely History of hypothyroidism required currently seems to be well supplemented and as per the patient report her primary care as not done changes to her dosing recently obesity with a BMI of 34 Depression Anxiety Plan troopnin have been negative will do a trial of muscle relaxant and nsaids patient may be discharged with instructions to follow up with her primary care physician who can coordinate outpatient evaluation by cardiology for stress test She would also benefit from a psych consultation . This was discussed in great detail. 9 patient also referred some edema over her wrists knees and ankles no stiffness reported have encourage her also to follow-up with her primary care physician coordinate rheumatological evaluation if need be. Primary care and initiate workup in the outpatient setting as he deems appropriate ALL CONCERNS addressed to the best of my abilities KENDELL DEL ANGEL MD April 03, 2019 11:13
--- NOTE | 2019-04-03 11:18 | PDOC3 ---
Discharge Summary Visit Information Date of Admission: April 03, 2019 Date of Discharge: April 03, 2019 Admitting Diagnosis: chest pain Final Diagnosis Problems Medical Problems: (1) musculoskeletal chest pain/ ACD ruled out with negative troponins and n egative EKG and telemetry Status: Acute (2) Hypokalemia replaced (3) generalized anxiety disorder (4) Hypothryroidism Status: Chronic Brief Hospital Course Allergies Allergies Coded Allergies Type Severity Reaction Last Updated Verified No Known Drug Allergies 07/16/18 No Vital Signs Vital Signs Date Time Temp Pulse Resp B/P (MAP) Pulse Ox O2 Delivery O2 Flow Rate FiO2 04/03/19 10:44 98.1 64 16 94/40 (58) 98 Room Air 98.1 Lab Results Laboratory Tests Test 04/02/19 21:38 04/02/19 21:52 04/02/19 23:50 04/03/19 04:00 White Blood Count 9.0 x10^3/uL (4.0-11.0) Red Blood Count 4.64 x10^6/uL (3.50-5.40) Hemoglobin 10.0 g/dL (12.0-15.5) Hematocrit 32.7 % (36.0-47.0) Mean Corpuscular Volume 71 fL (79-100) Mean Corpuscular Hemoglobin 22 pg (25-35) Mean Corpuscular Hemoglobin Concent 31 g/dL (31-37) Red Cell Distribution Width 18.8 % (11.5-14.5) Platelet Count 417 x10^3/uL (140-400) Neutrophils (%) (Auto) 39 % (31-73) Lymphocytes (%) (Auto) 45 % (24-48) Monocytes (%) (Auto) 9 % (0-9) Eosinophils (%) (Auto) 7 % (0-3) Basophils (%) (Auto) 1 % (0-3) Neutrophils # (Auto) 3.5 x10^3uL (1.8-7.7) Lymphocytes # (Auto) 4.0 x10^3/uL (1.0-4.8) Monocytes # (Auto) 0.8 x10^3/uL (0.0-1.1) Eosinophils # (Auto) 0.6 x10^3/uL (0.0-0.7) Basophils # (Auto) 0.1 x10^3/uL (0.0-0.2) Platelet Estimate Increased (ADEQUATE) Polychromasia Slight Hypochromasia Slight Anisocytosis Slight Ovalocytes Occ Prothrombin Time 12.8 SEC (11.7-14.0) Prothromb Time International Ratio 1.0 (0.8-1.1) Sodium Level 139 mmol/L (136-145) Potassium Level 3.2 mmol/L (3.5-5.1) Chloride Level 102 mmol/L (98-107) Carbon Dioxide Level 25 mmol/L (21-32) Anion Gap 12 (6-14) Blood Urea Nitrogen 13 mg/dL (7-20) Creatinine 0.7 mg/dL (0.6-1.0) Estimated GFR (Cockcroft-Gault) 90.5 BUN/Creatinine Ratio 19 (6-20) Glucose Level 131 mg/dL (70-99) Calcium Level 9.3 mg/dL (8.5-10.1) Magnesium Level 1.9 mg/dL (1.8-2.4) Total Bilirubin 0.2 mg/dL (0.2-1.0) Aspartate Amino Transf (AST/SGOT) 28 U/L (15-37) Alanine Aminotransferase (ALT/SGPT) 32 U/L (14-59) Alkaline Phosphatase 89 U/L (46-116) Creatine Kinase 146 U/L (26-192) Creatine Kinase MB (Mass) 1.1 ng/mL (0.0-3.6) Creatine Kinase MB Relative Index 0.8 % (0-4) Troponin I Quantitative < 0.017 ng/mL (0.000-0.055) < 0.017 ng/mL (0.000-0.055) < 0.017 ng/mL (0.000-0.055) CV-Cqn-F-Type Natriuretic Peptide 61 pg/mL (0-124) Total Protein 7.7 g/dL (6.4-8.2) Albumin 3.6 g/dL (3.4-5.0) Albumin/Globulin Ratio 0.9 (1.0-1.7) Lipase 148 U/L (73-393) Bedside Urine HCG, Qualitative Hcg negative (Negative) Test 04/03/19 06:50 04/03/19 07:04 Sodium Level 140 mmol/L (136-145) Potassium Level 4.8 mmol/L (3.5-5.1) Chloride Level 108 mmol/L (98-107) Carbon Dioxide Level 20 mmol/L (21-32) Anion Gap 12 (6-14) Blood Urea Nitrogen 13 mg/dL (7-20) Creatinine 0.7 mg/dL (0.6-1.0) Estimated GFR (Cockcroft-Gault) 90.5 Glucose Level 161 mg/dL (70-99) Calcium Level 8.9 mg/dL (8.5-10.1) Troponin I Quantitative < 0.017 ng/mL (0.000-0.055) Glucose (Fingerstick) 164 mg/dL (70-99) Laboratory Tests Test 04/02/19 21:38 04/02/19 21:52 04/02/19 23:50 04/03/19 04:00 White Blood Count 9.0 x10^3/uL (4.0-11.0) Red Blood Count 4.64 x10^6/uL (3.50-5.40) Hemoglobin 10.0 g/dL (12.0-15.5) Hematocrit 32.7 % (36.0-47.0) Mean Corpuscular Volume 71 fL (79-100) Mean Corpuscular Hemoglobin 22 pg (25-35) Mean Corpuscular Hemoglobin Concent 31 g/dL (31-37) Red Cell Distribution Width 18.8 % (11.5-14.5) Platelet Count 417 x10^3/uL (140-400) Neutrophils (%) (Auto) 39 % (31-73) Lymphocytes (%) (Auto) 45 % (24-48) Monocytes (%) (Auto) 9 % (0-9) Eosinophils (%) (Auto) 7 % (0-3) Basophils (%) (Auto) 1 % (0-3) Neutrophils # (Auto) 3.5 x10^3uL (1.8-7.7) Lymphocytes # (Auto) 4.0 x10^3/uL (1.0-4.8) Monocytes # (Auto) 0.8 x10^3/uL (0.0-1.1) Eosinophils # (Auto) 0.6 x10^3/uL (0.0-0.7) Basophils # (Auto) 0.1 x10^3/uL (0.0-0.2) Platelet Estimate Increased (ADEQUATE) Polychromasia Slight Hypochromasia Slight Anisocytosis Slight Ovalocytes Occ Prothrombin Time 12.8 SEC (11.7-14.0) Prothromb Time International Ratio 1.0 (0.8-1.1) Sodium Level 139 mmol/L (136-145) Potassium Level 3.2 mmol/L (3.5-5.1) Chloride Level 102 mmol/L (98-107) Carbon Dioxide Level 25 mmol/L (21-32) Anion Gap 12 (6-14) Blood Urea Nitrogen 13 mg/dL (7-20) Creatinine 0.7 mg/dL (0.6-1.0) Estimated GFR (Cockcroft-Gault) 90.5 BUN/Creatinine Ratio 19 (6-20) Glucose Level 131 mg/dL (70-99) Calcium Level 9.3 mg/dL (8.5-10.1) Magnesium Level 1.9 mg/dL (1.8-2.4) Total Bilirubin 0.2 mg/dL (0.2-1.0) Aspartate Amino Transf (AST/SGOT) 28 U/L (15-37) Alanine Aminotransferase (ALT/SGPT) 32 U/L (14-59) Alkaline Phosphatase 89 U/L (46-116) Creatine Kinase 146 U/L (26-192) Creatine Kinase MB (Mass) 1.1 ng/mL (0.0-3.6) Creatine Kinase MB Relative Index 0.8 % (0-4) Troponin I Quantitative < 0.017 ng/mL (0.000-0.055) < 0.017 ng/mL (0.000-0.055) < 0.017 ng/mL (0.000-0.055) RX-Sjf-G-Type Natriuretic Peptide 61 pg/mL (0-124) Total Protein 7.7 g/dL (6.4-8.2) Albumin 3.6 g/dL (3.4-5.0) Albumin/Globulin Ratio 0.9 (1.0-1.7) Lipase 148 U/L (73-393) Bedside Urine HCG, Qualitative Hcg negative (Negative) Test 04/03/19 06:50 5/18/19 07:04 Sodium Level 140 mmol/L (136-145) Potassium Level 4.8 mmol/L (3.5-5.1) Chloride Level 108 mmol/L (98-107) Carbon Dioxide Level 20 mmol/L (21-32) Anion Gap 12 (6-14) Blood Urea Nitrogen 13 mg/dL (7-20) Creatinine 0.7 mg/dL (0.6-1.0) Estimated GFR (Cockcroft-Gault) 90.5 Glucose Level 161 mg/dL (70-99) Calcium Level 8.9 mg/dL (8.5-10.1) Troponin I Quantitative < 0.017 ng/mL (0.000-0.055) Glucose (Fingerstick) 164 mg/dL (70-99) Brief Hospital Course Ms. Padilla is a 44 old female female who presented with chronic chest discomfort that has been ongoing for several months. The patient has a myriad of symptoms associated with the events that last seconds. She seemed very anxious during my encounter in the inpatient setting. I have attempted to provide as much reassurance as possible and encouraged her to follow-up with her primary care physician for close follow-up. I have encourage her to request also consultations with specialists in the arena off cardiology to give her peace of mind, regarding serendipitous myriad of complaints that she had towards the end of her hospital stay a have recommended also a rheumatological evaluation for peripheral edema that she experiences and discomfort over her wrists knees and ankles. She describes what sounds to be a rainout phenomenon which she can follow-up with her primary care physician with N probably be put on calcium channel blockers. Signs and symptoms of alarm were discussed prior to discharge Salts of her x-ray is as follows PA and lateral chest radiographs 04/02/2019 CLINICAL HISTORY: Chest pain. PA and lateral digital radiographs of the chest were obtained. Comparison study is dated 07/03/2018. The cardiac silhouette is borderline enlarged. The thoracic aorta is mildly tortuous. No acute pulmonary infiltrate is seen. No pleural effusion or pneumothorax is noted. Minimal degenerative changes are seen involving the thoracic spine. IMPRESSION: No acute abnormality is seen. Electronically signed by: Iron Landeros MD (04/03/2019 12:32 AM) [facility] I have tried to provide as much reassurance again to the patient and encouraged her to continue with the regimen of muscle relaxant and NSAID and noted to address her musculoskeletal discomfort Signs and symptoms of alarm discussed prior to discharge and I have encourage her to follow up with her primary care physician within one week to discuss her prediabetes given the glucose readings during her hospital stay. she may be now transitioning from pre diabetes to diabetes mellitus type 2, she will need close follow up Discharge Information Condition at Discharge: Stable Follow Up: Weeks Disposition/Orders: D/C to Home Scheduled Cholecalciferol (Vitamin D3) (Vitamin D3) 1,000 Unit Tablet, 1,000 UNIT PO DAILY, (Reported) Entered as Reported by: MEGAN DALAL on 07/04/18 0127 Duloxetine Hcl (Cymbalta) 30 Mg Capsule.dr, 1 CAP PO DAILY, #30 Ref 5 (Reported) Entered as Reported by: JACOB ZARATE on 07/16/18 1055 Ferrous Sulfate (Ferrous Sulfate) 325 Mg Tablet, 1 TAB PO DAILY for anemia, #30 Ref 3 (Reported) Entered as Reported by: LA BASHIR on 04/03/19919 Last Taken: Unknown Dose on 04/02/19 1400 Last Action: New Order on 04/03/19919 by LA BASHIR Fludrocortisone Acetate (Fludrocortisone Acetate) 0.1 Mg Tablet, 0.1 MG PO DAILY, (Reported) Entered as Reported by: JACOB ZARATE on 07/16/18 1055 Levothyroxine Sodium (Levothyroxine Sodium) 25 Mcg Tablet, 1 TAB PO DAILY for hypothyroidism, #30 Ref 5 (Reported) Entered as Reported by: LA BASHIR on 04/03/19921 Last Taken: Unknown Dose on 04/02/19 0700 Last Action: New Order on 04/03/19921 by LA BASHIR Magnesium Carbonate/Al Hydrox (Gaviscon Es Tablet Chew) 1 Each Tab.chew, 1 EACH PO QID, (Reported) Entered as Reported by: PONCHO CHAVARRIA on 07/15/18 1412 Meclizine Hcl (Meclizine Hcl) 25 Mg Tablet, 1 TAB PO PRN TID, #30 (Reported) Entered as Reported by: JACOB ZARATE on 07/16/18 1056 Meloxicam (Meloxicam) 7.5 Mg Tablet, 7.5 MG PO DAILY for Pain for 10 Days, #10 Prescribed by: KENDELL DEL ANGEL MD on 04/03/19 1103 Scheduled PRN Tizanidine Hcl (Tizanidine Hcl) 4 Mg Tablet, 4 MG PO PRN Q8HRS PRN for MUSCLE SPASMS for 10 Days, #30 Prescribed by: KENDELL DEL ANGEL MD on 04/03/19 1103 Discontinued Medications Orphenadrine Citrate (Orphenadrine Citrate) 100 Mg Tablet.er, 100 MG PO BID PRN for MUSCLE PAIN, #14 Prescribed by: ESVIN DE PAZ D.O. on 04/03/19 0026 Prednisone (Prednisone) 20 Mg Tablet, 2 TAB PO DAILY, #8 Prescribed by: ESVIN DE PAZ D.O. on 04/03/196 KENDELL DEL ANGEL MD April 03, 2019 11:18
[2019-04-03 15:01] VITALS: BP 103/42
--- NOTE | 2019-04-03 16:03 | NUR ---
Discharge Note: MICHAEL JONES [address] Discharge instructions and discharge home medications reviewed with patient and patient's daughter; and a copy given. All questions have been answered and understanding verbalized. The following instructions and handouts were given: Prescription for tizanidine and meloxicam FF up with PCP in a week Hypokalemia, chest pain, blood sugar test handouts Discontinued lines and drains:peripheraL IV intact, patient tolerated removal, no complications noted. Patient discharged to home with self-care , ambulatory accompanied by patient's daughter at 1600.
[2019-04-04] MEDS ORDERED: MELOXICAM 7.5 MG TABLET PO SCH (09:00)
--- NOTE | 2019-04-04 11:19 | EKG ---
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
== END 2019-04-03 15:55 | disposition home or self-care (01) | DRG 313 ==
LOC: ER 21:24 → 6 SOUTH 04-03 03:28
PROVIDERS: ADMIT Internal Medicine; ATTEND Internal Medicine
DX: R07.89 Other chest pain (principal); E03.9 Hypothyroidism, unspecified; E87.6 Hypokalemia; F32.9 Major depressive disorder, single episode, unspecified; F41.1 Generalized anxiety disorder; E66.9 Obesity, unspecified; I10 Essential (primary) hypertension; J45.909 Unspecified asthma, uncomplicated; K21.9 Gastro-esophageal reflux disease without esophagitis; Z98.1 Arthrodesis status; Z87.440 Personal history of urinary (tract) infections; Z68.34 Body mass index [BMI] 34.0-34.9, adult
CPT/HCPCS: 36415; 71046; 80048; 80053; 81025; 82553; 82962; 83690; 83735; 83880; 84484; 85025; 85610; 93005; 96361; 96374; 96375; J1100; J1815; J1885; J7030; 99285-25

== ENCOUNTER 2019-10-23 22:42 | Emergency (ER) | payer SELFPAY ==
[~2019-10-23] VITALS: Ht 144.8 cm; Wt 77.1 kg
[~2019-10-23 22:42] MED LIST changes: +FERR325T14 PO; +LEVO25TA4 PO; +MELO7.5T29 PO; +ORPH100T PO; +PRED20TA PO; +TIZA4TAB2 PO
[2019-10-23 22:50] VITALS: BP 124/64
[2019-10-24 00:52] LABS: INFLUENZA A PATIENT NEGATIVE (NEGATIVE); INFLUENZA B PATIENT NEGATIVE (NEGATIVE)
[2019-10-24] MEDS ORDERED: AZIT250T PO (01:55)
[2019-10-24] MEDS ORDERED: ALBU2.5V8 IH (01:55)
[2019-10-24] MEDS ORDERED: PROM5SYR2 PO (01:56)
[2019-10-24] MEDS ORDERED: IPRATRPIUM/ALBUTEROL 0.5/2.5MG 3 ML NEBU. NEB ONE (02:30)
--- NOTE | 2019-10-24 06:09 | PHYS DOC ---
Past Medical History Past Medical History: Anemia, GERD, Hypothyroid Additional Past Medical Histor: PRE DIABETIC Past Surgical History: Other Additional Past Surgical Histo: neck fusion Alcohol Use: None Drug Use: None Adult General Chief Complaint Chief Complaint: COUGH HPI HPI Patient is a 44 year old spitting female presents with nasal congestion, rhinorrhea, cough 2 weeks with occasional wheezing. No fever chills, nausea vomiting or sweats. Multiple sick exposures. No history of asthma, COPD, CAD or congestive heart failure. No other acute symptoms or complaints. Patient has not been evaluated for these symptoms prior to today's visit. [] Review of Systems Review of Systems Review symptoms as per history of present illness. All other review symptoms are negative. All other systems were reviewed and found to be within normal limits, except as documented in this note. Current Medications Current Medications Current Medications Medications (Trade) Dose Ordered Sig/[place] Start Time Stop Time Status Last Admin Dose Admin Albuterol/ Ipratropium (Duoneb) 3 ml 1X ONCE 10/24/19 02:30 10/24/19 02:31 DC 10/24/19 02:27 3 ML Allergies Allergies Allergies Coded Allergies Type Severity Reaction Last Updated Verified No Known Drug Allergies 07/16/18 No Physical Exam Physical Exam Constitutional: Well developed, well nourished, no acute distress, non-toxic appearance. [] HENT: Normocephalic, atraumatic, bilateral external ears normal, oropharynx moist, no oral exudates, nose normal. [] Eyes: PERRLA, EOMI, conjunctiva normal, no discharge. [] Neck: Normal range of motion, no tenderness, supple, no stridor. [] Cardiovascular:Heart rate regular rhythm, no murmur [] Lungs & Thorax: Respirations nonlabored, coarse diminished breath sounds with expiratory wheezes.[] Abdomen: Bowel sounds normal, soft, no tenderness. [] Skin: Warm, dry, no erythema, no rash. [] Back: No tenderness, no CVA tenderness. [] Extremities: No tenderness, no cyanosis, no clubbing, ROM intact, no edema. [] Neurologic: Alert and oriented X 3, normal motor function, normal sensory function, no focal deficits noted. [] Psychologic: Affect normal, judgement normal, mood normal. [] Current Patient Data Vital Signs Vital Signs Date Time Temp Pulse Resp B/P (MAP) Pulse Ox O2 Delivery O2 Flow Rate FiO2 10/24/19 02:25 Room Air 10/23/19 22:50 98.9 79 16 124/64 (84) 98 98.9 Lab Values Laboratory Tests Test 10/24/19 00:15 Influenza Type A Antigen Negative (NEGATIVE) Influenza Type B Antigen Negative (NEGATIVE) EKG EKG [] Radiology/Procedures Radiology/Procedures [] Course & Med Decision Making Course & Med Decision Making Pertinent Labs and Imaging studies reviewed. (See chart for details) [Breathing treatment given with symptomatic improvement. Biotics, inhaler and cough medication prescribed. Recommendations for outpatient follow-up. Return precautions reviewed. Patient verbalizes understanding agreement discharge instructions prior to departure.] Dragon Disclaimer Dragon Disclaimer This electronic medical record was generated, in whole or in part, using a voice recognition dictation system. Departure Departure Impression: Primary Impression: Acute bronchitis Disposition: HOME, SELF-CARE Condition: GOOD Patient Instructions: Acute Bronchitis, [id number] Additional Instructions: Please take newly prescribed medications as directed and follow-up with your PCP for reevaluation in 2-3 days. Scripts Promethazine HCl/Codeine (Prometh-Codein 6.25-10 mg/5 ml) 5 Ml Syrup 5 ML PO PRN Q4-6HRS PRN for cough MDD 30 Milliliter(s), #120 ML 0 Refills Prov: FABIO FUENTES DO 10/24/19 Albuterol Sulfate (Proair Hfa) 8.5 Gm Hfa.aer.ad 2 PUFF IH PRN Q4-6HRS PRN for wheezing for 21 Days, #1 INHALER 0 Refills Prov: FABIO FUENTES DO 10/24/19 Azithromycin (ZITHROMAX) 250 Mg Tablet 1 PKG PO UD, #6 TAB Prov: FABIO FUENTES DO 10/24/19 FABIO FUENTES DO Oct 24, 2019 06:09
== END 2019-10-24 02:50 | disposition home or self-care (01) ==
LOC: ER 22:42
DX: J20.9 Acute bronchitis, unspecified (principal); K21.9 Gastro-esophageal reflux disease without esophagitis; E03.9 Hypothyroidism, unspecified; Z98.890 Other specified postprocedural states; Z86.2 Personal history of diseases of the blood and blood-forming organs and certain disorders involving the immune mechanism
CPT/HCPCS: 87804; 94640; 99284; J7620

== ENCOUNTER 2020-04-05 13:41 | Emergency (ER) | payer SELFPAY ==
[~2020-04-05] VITALS: Ht 144.8 cm; Wt 77.0 kg
[~2020-04-05 13:41] MED LIST changes: +ALBU2.5V8 IH; +AZIT250T PO; +DICL75TA PO; +MECL-75 PO; -MECL12.52 PO; +MECL12.573 PO; -MECL25TA3 PO; +PROM5SYR2 PO
[2020-04-05 14:05] VITALS: BP 128/60
[2020-04-05] MEDS ORDERED: AMOX875T PO (14:27)
[2020-04-05] MEDS ORDERED: PRED50TA PO (14:27)
[2020-04-05] MEDS ORDERED: FAMO-63 PO (14:27)
[2020-04-05] MEDS ORDERED: FEXO60TA25 PO (14:27)
--- NOTE | 2020-04-05 14:38 | PHYS DOC ---
Past Medical History Past Medical History: Asthma, Hypothyroid Additional Past Medical Histor: PRE DIABETIC Past Surgical History: No Surgical History Additional Past Surgical Histo: neck fusion Smoking Status: Never Smoker Alcohol Use: None Drug Use: None Adult General Chief Complaint Chief Complaint: COUGH HPI HPI Patient is a 45 year old female with a history of asthma who presents with wheezing, shortness of breath, nasal congestion, rhinorrhea and itching in her ears x2 months. Patient recently completed course of antibiotics steroids 1 week ago.No fever chills, sweats. No nausea or vomiting. Denies increased she has been unable to see her PCP in the office due to restrictions from the coronavirus pandemic. [] Review of Systems Review of Systems Review of symptoms as per HPI. All other review of symptoms are negative. All other systems were reviewed and found to be within normal limits, except as documented in this note. Allergies Allergies Allergies Coded Allergies Type Severity Reaction Last Updated Verified No Known Drug Allergies 07/16/18 No Physical Exam Physical Exam Constitutional: Well developed, well nourished, no acute distress, non-toxic appearance. [] HENT: Normocephalic, atraumatic, bilateral external ears normal, oropharynx moist, frontal and ethmoid sinus tenderness to palpation, nose normal. [] Eyes: PERRLA, EOMI, conjunctiva normal, no discharge. [] Neck: Normal range of motion, no tenderness. [] Cardiovascular:Heart rate regular rhythm, no murmur [] Lungs & Thorax: Respirations nonlabored, occasional expiratory wheeze. [] Abdomen: Bowel sounds normal, soft, no tenderness. [] Skin: Warm, dry, no erythema, no rash. [] Back: No tenderness, no CVA tenderness. [] Extremities: No tenderness, no edema. [] Neurologic: Alert and oriented X 3, normal motor function, normal sensory function, no focal deficits noted. [] Psychologic: Affect normal, judgement normal, mood normal. [] Current Patient Data Vital Signs Vital Signs Date Time Temp Pulse Resp B/P (MAP) Pulse Ox O2 Delivery O2 Flow Rate FiO2 04/05/20 14:05 98.5 75 18 128/60 (82) 99 Room Air 98.5 EKG EKG [] Radiology/Procedures Radiology/Procedures [] Course & Med Decision Making Course & Med Decision Making Pertinent Labs and Imaging studies reviewed. (See chart for details) [Seasonal allx with mild persistent asthma exac and gastritis] Kristie Disclaimer Kristie Disclaimer This electronic medical record was generated, in whole or in part, using a voice recognition dictation system. Departure Departure Impression: Primary Impression: Gastritis Additional Impressions: Asthma exacerbation Seasonal allergic rhinitis Disposition: 01 HOME, SELF-CARE Condition: STABLE Patient Instructions: Gastritis, Adult, [id number], Asthma, Adult, [id number], Allergic Rhinitis Additional Instructions: Please take newly prescribed medications as directed and follow-up with your PCP in 2 weeks for reevaluation. Scripts Famotidine (PEPCID) 20 Mg Tablet 20 MG PO BID for 30 Days, #60 TAB Prov: FABIO FUENTES DO 04/05/20 Amoxicillin (AMOXICILLIN) 875 Mg Tablet 1 TAB PO BID, #20 TAB Prov: FABIO FUENTES DO 04/05/20 Prednisone (PREDNISONE) 50 Mg Tablet 1 TAB PO DAILY, #5 TAB Prov: FABIO FUENTES DO 04/05/20 Fexofenadine Hcl (ALLAN ALLERGY) 60 Mg Tablet 1 TAB PO BID for allergy symptoms for 30 Days, #60 TAB 0 Refills Prov: FABIO FUENTES DO 04/05/20 Problem Qualifiers FABIO FUENTES DO April 05, 2020 14:38
--- NOTE | 2020-04-06 06:48 | EKG ---
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
== END 2020-04-05 14:41 | disposition home or self-care (01) ==
LOC: ER 13:41
DX: K29.70 Gastritis, unspecified, without bleeding (principal); J45.901 Unspecified asthma with (acute) exacerbation; J30.9 Allergic rhinitis, unspecified; R06.02 Shortness of breath; R09.81 Nasal congestion; J34.89 Other specified disorders of nose and nasal sinuses; E03.9 Hypothyroidism, unspecified; Z98.890 Other specified postprocedural states
CPT/HCPCS: 93005; 99283

== ENCOUNTER 2021-06-23 12:48 | Emergency (ER) | payer SELFPAY ==
[~2021-06-23] VITALS: Ht 142.2 cm; Wt 72.7 kg
[~2021-06-23 12:48] MED LIST changes: +AMOX875T PO; +FAMO-63 PO; +FEXO60TA25 PO; -MECL12.573 PO; +MECL12.582 PO; +MULT-445 PO; -MULT1TAB52 PO; +PRED50TA PO
[2021-06-23 14:09] LABS: BILIRUBIN,URINE NEGATIVE (NEG); CLARITY,URINE CLEAR; COLOR,URINE YELLOW; NITRITE,URINE NEGATIVE (NEG); PH,URINE 6.5 (<5.0-8.0); PROTEIN,URINE NEGATIVE (NEG-TRACE); UROBILINOGEN,URINE 0.2 mg/dL (0.2 mg/dL)
[2021-06-23 14:17] LABS: BACTERIA,URINE 0 /HPF (0-FEW)
[2021-06-23 14:30] LABS: BASO # 0.1 x10^3/uL (0.0-0.2); BASO % 1 % (0-3); EOS # 0.4 x10^3/uL (0.0-0.7); EOS % 5 % (0-3); HEMATOCRIT 39.9 % (36.0-47.0); HEMOGLOBIN 13.4 g/dL (12.0-15.5); LYMPH # 3.4 x10^3/uL (1.0-4.8); LYMPH % 39 % (24-48); MEAN CORPUSCULAR HEMOGLOBIN 28 pg (25-35); MEAN CORPUSCULAR HGB CONC 34 g/dL (31-37); MEAN CORPUSCULAR VOLUME 83 fL (79-100); MONO # 0.8 x10^3/uL (0.0-1.1); MONO % 10 % (0-9); NEUT # 4.1 x10^3/uL (1.8-7.7); NEUT % 46 % (31-73); PLATELET COUNT 310 x10^3/uL (140-400); RED CELL DISTRIBUTION WIDTH 14.3 % (11.5-14.5); WHITE BLOOD COUNT 8.9 x10^3/uL (4.0-11.0)
[2021-06-23 14:40] LABS: CALCIUM 9.5 mg/dL (8.5-10.1); CREATININE 0.8 mg/dL (0.6-1.0); GFR 76.9; POTASSIUM 4.4 mmol/L (3.5-5.1)
[2021-06-23 14:46] LABS: ALBUMIN 3.6 g/dL (3.4-5.0); ALBUMIN/GLOBULIN RATIO 0.8 (1.0-1.7); MAGNESIUM 2.2 mg/dL (1.8-2.4); TOTAL BILIRUBIN 0.5 mg/dL (0.2-1.0); TOTAL PROTEIN 7.9 g/dL (6.4-8.2)
[2021-06-23] MEDS ORDERED: IOHEXOL 300 MG/ML 100ML VIAL. IV ONE (15:00)
--- NOTE | 2021-06-23 15:09 | PHYS DOC ---
Past Medical History Past Medical History: Asthma, Hypothyroid Additional Past Medical Histor: PRE DIABETIC Past Surgical History: Cervical Fusion Additional Past Surgical Histo: neck fusion Smoking Status: Never Smoker Alcohol Use: Rarely Drug Use: None General Adult EDM: Chief Complaint: ABDOMINAL PAIN HPI: HPI: Patient is a 46 year old female who present to ER for evaluation abdominal pain that been going on off and on for 1 month. Patient is also says sometimes the back pain and lower extremity pain. Patient went to see her doctor recently, was put on some medication but the medication did not help her with the pain so she came here for evaluation. Patient denies any chest pain, no trouble breathing. Patient denies any cough or fever. Patient denies any diarrhea, no constipation problem. Patient denies vaginal bleeding or discharge. Patient denies any injury Review of Systems: Review of Systems: Constitutional: Denies fever or chills. [] Eyes: Denies change in visual acuity. [] HENT: Denies nasal congestion or sore throat. [] Respiratory: Denies cough or shortness of breath. [] Cardiovascular: Denies chest pain or edema. [] GI: Positive for abdominal pain, no nausea vomiting, no diarrhea : Denies dysuria. [] Musculoskeletal: Positive back pain, lower extremity pain, Integument: Denies rash. [] Neurologic: Denies headache, focal weakness or sensory changes. [] Endocrine: Denies polyuria or polydipsia. [] Lymphatic: Denies swollen glands. [] Psychiatric: Denies depression or anxiety. [] Heart Score: C/O Chest Pain: N/A Risk Factors: Risk Factors: DM, Current or recent (<one month) smoker, HTN, HLP, family history of CAD, obesity. Risk Scores: Score 0 - 3: 2.5% MACE over next 6 weeks - Discharge Home Score 4 - 6: 20.3% MACE over next 6 weeks - Admit for Clinical Observation Score 7 - 10: 72.7% MACE over next 6 weeks - Early Invasive Strategies Current Medications: Current Medications Medications (Trade) Dose Ordered Sig/[place] Start Time Stop Time Status Last Admin Dose Admin Iohexol (Omnipaque 300 Mg/ml) 75 ml 1X ONCE 06/23/21 15:00 06/23/21 15:02 DC Allergies: Allergies: Allergies Coded Allergies Type Severity Reaction Last Updated Verified No Known Drug Allergies 07/16/18 No Physical Exam: PE: Constitutional: Well developed, well nourished, no acute distress, non-toxic appearance. [] HENT: Normocephalic, atraumatic, bilateral external ears normal, oropharynx moist, no oral exudates, nose normal. [] Eyes: PERRLA, EOMI, conjunctiva normal, no discharge. [] Neck: Normal range of motion, no tenderness, supple, no stridor. [] Cardiovascular:Heart rate regular rhythm, no murmur [] Lungs & Thorax: Bilateral breath sounds clear to auscultation [] Abdomen: Bowel sounds normal, soft, there is tenderness to palpation in epigastric area no masses, no pulsatile masses. [] Skin: Warm, dry, no erythema, no rash. [] Back: No tenderness, no CVA tenderness. [] Extremities: No tenderness, no cyanosis, no clubbing, ROM intact, no edema. There is no swelling in the calfs. Neurologic: Alert and oriented X 3, normal motor function, normal sensory function, no focal deficits noted. [] Psychologic: Affect normal, judgement normal, mood normal. [] Current Patient Data: Labs: Laboratory Tests Test 06/23/21 13:36 06/23/21 13:50 06/23/21 14:17 Urine Collection Type Unknown Urine Color Yellow Urine Clarity Clear Urine pH 6.5 (<5.0-8.0) Urine Specific [place] 1.015 (1.000-1.030) Urine Protein Negative mg/dL (NEG-TRACE) Urine Glucose (UA) Negative mg/dL (NEG) Urine Ketones (Stick) Negative mg/dL (NEG) Urine Blood Small (NEG) Urine Nitrite Negative (NEG) Urine Bilirubin Negative (NEG) Urine Urobilinogen Dipstick 0.2 mg/dL (0.2 mg/dL) Urine Leukocyte Esterase Negative (NEG) Urine RBC 1-2 /HPF (0-2) Urine WBC 1-4 /HPF (0-4) Urine Squamous Epithelial Cells Mod /LPF Urine Bacteria 0 /HPF (0-FEW) Urine Mucus Slight /LPF POC Urine HCG, Qualitative Hcg negative (Negative) White Blood Count 8.9 x10^3/uL (4.0-11.0) Red Blood Count 4.80 x10^6/uL (3.50-5.40) Hemoglobin 13.4 g/dL (12.0-15.5) Hematocrit 39.9 % (36.0-47.0) Mean Corpuscular Volume 83 fL (79-100) Mean Corpuscular Hemoglobin 28 pg (25-35) Mean Corpuscular Hemoglobin Concent 34 g/dL (31-37) Red Cell Distribution Width 14.3 % (11.5-14.5) Platelet Count 310 x10^3/uL (140-400) Neutrophils (%) (Auto) 46 % (31-73) Lymphocytes (%) (Auto) 39 % (24-48) Monocytes (%) (Auto) 10 % (0-9) H Eosinophils (%) (Auto) 5 % (0-3) H Basophils (%) (Auto) 1 % (0-3) Neutrophils # (Auto) 4.1 x10^3/uL (1.8-7.7) Lymphocytes # (Auto) 3.4 x10^3/uL (1.0-4.8) Monocytes # (Auto) 0.8 x10^3/uL (0.0-1.1) Eosinophils # (Auto) 0.4 x10^3/uL (0.0-0.7) Basophils # (Auto) 0.1 x10^3/uL (0.0-0.2) Sodium Level 140 mmol/L (136-145) Potassium Level 4.4 mmol/L (3.5-5.1) Chloride Level 103 mmol/L (98-107) Carbon Dioxide Level 30 mmol/L (21-32) Anion Gap 7 (6-14) Blood Urea Nitrogen 14 mg/dL (7-20) Creatinine 0.8 mg/dL (0.6-1.0) Estimated GFR (Cockcroft-Gault) 76.9 BUN/Creatinine Ratio 18 (6-20) Glucose Level 100 mg/dL (70-99) H Calcium Level 9.5 mg/dL (8.5-10.1) Magnesium Level 2.2 mg/dL (1.8-2.4) Total Bilirubin 0.5 mg/dL (0.2-1.0) Aspartate Amino Transferase (AST) 28 U/L (15-37) Alanine Aminotransferase (ALT) 38 U/L (14-59) Alkaline Phosphatase 98 U/L (46-116) Total Protein 7.9 g/dL (6.4-8.2) Albumin 3.6 g/dL (3.4-5.0) Albumin/Globulin Ratio 0.8 (1.0-1.7) L Lipase 95 U/L (73-393) Laboratory Tests 06/23/21 14:17 Laboratory Tests 06/23/21 14:17 Vital Signs: Vital Signs Date Time Temp Pulse Resp B/P (MAP) Pulse Ox O2 Delivery O2 Flow Rate FiO2 06/23/21 13:32 98.0 67 20 113/55 (82) 99 Room Air 98.0 EKG: EKG: [] Radiology/Procedures: Radiology/Procedures: [][facility] [address] [place], [place] [id number] IMAGING REPORT Signed PATIENT: MICHAEL MENDIOLA CACCOUNT: [id number] : 1975 LOCATION: ER AGE: 46 SEX: F EXAM STATUS: REG ER ORD. PHYSICIAN: YRN DEE DO REASON: abdominal pain PROCEDURE: CT ABD PELV W/ IV CONTRST ONLY Exam Date: 06/23/2021 3:[address] ABDOMEN+PELVIS W Indication: Reason: abdominal pain / Spl. Instructions: OMNI 300 INJ. 75 MLS / History: . TECHNIQUE: CT examination of the abdomen and pelvis was performed following the administration of nonionic intravenous contrast. One or more of the following dose reduction techniques were utilized: *Automated exposure control (AEC) *Adjustment of mA and/or kV according to patient size *Use of iterative reconstruction technique *CT scan done according to ALARA, or ALARA/IMAGE GENTLY COMPARISON: July 07, 2018 FINDINGS: The visualized lung bases are clear. 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 No appreciable hydronephrosis. The liver, gallbladder, spleen, pancreas, adrenal glands and kidneys are otherwise normal. Urinary bladder is normal in appearance. There is no bowel obstruction or inflammation. The appendix is normal. There is a small fat-containing umbilical hernia. No significant atherosclerotic calcifications are seen. No lymphadenopathy or ascites is seen. Degenerative changes are seen in the spine. IMPRESSION: No evidence of acute intra-abdominal pathology. Electronically signed by: Jessica Ward MD (06/23/2021 4:24 PM) [facility] DICTATED and SIGNED BY: JESSICA WARD MD DATE: 06/23/21 [id number] 0 Course & Med Decision Making: Course & Med Decision Making Pertinent Labs and Imaging studies reviewed. (See chart for details) Patient is a 46-year-old female who presented to ER due to abdominal pain that been going on for 1 month, work-up did not find any acute problem. Patient was discharged home, she will need to follow-up with her family physician outpatient evaluation Dragon Disclaimer: Dragon Disclaimer: This electronic medical record was generated, in whole or in part, using a voice recognition dictation system. Departure Departure Impression: Primary Impression: Abdominal pain Disposition: LEFT AWOL/ELOPED Condition: STABLE Referrals: NO PCP (PCP) Please follow up with your doctor next week for reevaluation Patient Instructions: Abdominal Pain (Nonspecific) Additional Instructions: Thank you for visiting our Emergency Department. We appreciate you trusting us with your care. If any additional problems come up don't hesitate to return to visit us. Please follow up with your primary care provider so they can plan additional care if needed and know about the problem that you had. If symptoms worsen come back to the Emergency Department. Any concerning symptoms that start such as chest pain, shortness of air, weakness or numbness on one side of the body, running high fevers or any other concerning symptoms return to the ER. Scripts Dicyclomine Hcl (DICYCLOMINE HCL) 20 Mg Tablet 1 TAB PO TID PRN for ABDOMINAL CRAMPS, #30 TAB 1 Refill Prov: YRN DEE DO 06/23/21 YRN DEE DO Jun 23, 2021 15:09
--- NOTE | 2021-06-23 16:26 | RAD ---
Exam Date: 06/23/2021 3:[address] ABDOMEN+PELVIS W Indication: Reason: abdominal pain / Spl. Instructions: OMNI 300 INJ. 75 MLS / History: . TECHNIQUE: CT examination of the abdomen and pelvis was performed following the administration of no nionic intravenous contrast. One or more of the following dose reduction techniques were utilized: *Automated exposure control (AEC) *Adjustment of mA and/or kV according to patient size *Use of iterative reconstruction technique *CT scan done according to ALARA, or ALARA/IMAGE GENTLY COMPARISON: July 07, 2018 FINDINGS: The visualized lung bases are clear. 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 No appreciable hydronephrosis. The liver, gallbladder, spleen, pancreas, adrenal glands and kidneys are otherwise normal. Urinary bladder is normal in appearance. There is no bowel obstruction or inflammation. The appendix is normal. There is a small fat-contain ing umbilical hernia. No significant atherosclerotic calcifications are seen. No lymphadenopathy or ascites is seen. Degenerative changes are seen in the spine. IMPRESSION: No evidence of acute intra-abdominal pathology. Electronically signed by: Russ Ward MD (06/23/2021 4:24 PM) [facility]
[2021-06-23] MEDS ORDERED: DICY20TA3 PO (16:40)
[2021-06-23] MEDS ORDERED: DICYCLOMINE 20 MG/2 ML VIAL. IM ONE (17:00)
[2021-06-23 17:23] VITALS: BP 106/65
== END 2021-06-23 17:40 | disposition home or self-care (01) ==
LOC: ER 12:48
DX: R10.13 Epigastric pain (principal); M79.606 Pain in leg, unspecified; J45.909 Unspecified asthma, uncomplicated; E03.9 Hypothyroidism, unspecified
CPT/HCPCS: 36415; 74177; 80053; 81001; 81025; 83690; 83735; 85025; 96372; 99285; J0500; Q9967

== ENCOUNTER → 2022-02-14 | Outpatient (CLI) | payer OTHER ==
[~2022-02-14] MED LIST changes: +DICY20TA PO; +IOHEXOL 240 MG/ML 50ML VIAL. PO ONE; +IOHEXOL 300 MG/ML 100ML VIAL. IV ONE; -OMEP20TA8 PO; +OMEP20TA91 PO; +TIZA-75 PO; -TIZA4TAB2 PO
--- NOTE | 2022-02-14 11:09 | RAD ---
EXAM: Abdomen and pelvis CT with intravenous contrast. HISTORY: Left lower quadrant pain. TECHNIQUE: Computed tomographic images of the abdomen and pelvis were obtained following the administ ration of intravenous contrast. Multiplanar reformatting was performed. *One or more of the following individualized dose reduction techniques were utilized for this examina tion: 1. Automated exposure control. 2. Adjustment of the mA and/or kV according to patient size. 3. Use of iterative reconstruction technique. COMPARISON: 06/23/2021. FINDINGS: Evaluation of the lower thorax demonstrates right lower lobe linear atelectasis. There is n o infiltrate or pleural effusion. There is hepatic steatosis. The gallbladder, pancreas, spleen and a drenal glands are unremarkable. There is a partially duplicated right renal collecting system. There is scarring involving the right lower pole moiety. There is a small suspected cyst within the lower p ole. The appendix is upper normal in caliber. There are no secondary findings to suggest appendicitis. The re is no bowel obstruction. The bladder is unremarkable. The uterus and ovaries are unremarkable. The aorta is normal in caliber. There is no lymphadenopathy. There is no suspicious or acute osseous fin ding. IMPRESSION: 1. No acute abdominal or pelvic finding. 2. Hepatic steatosis. 3. Partially duplicated right renal collecting system, with scarring a small suspected benign cyst in volving the right lower pole moiety. Electronically signed by: Kathy Belle MD (02/14/2022 11:07 AM) [facility]
== END ==
LOC: CT 09:00
PROVIDERS: ATTEND Family Medicine
DX: K76.0 Fatty (change of) liver, not elsewhere classified (principal); J98.11 Atelectasis; J98.4 Other disorders of lung
CPT/HCPCS: 74177; Q9966; Q9967